=== PATIENT | female | born 1940 | race Caucasian/White ===

== ENCOUNTER 2018-11-09 12:26 | Inpatient (IN) | payer MEDICARE ==
[~2018-11-09] VITALS: Ht 175.3 cm; Wt 113.7 kg
[2018-11-09] MEDS ORDERED: OMEP20CA13 PO (12:50)
[2018-11-09] MEDS ORDERED: ONDN4T PO (12:50)
[2018-11-09] MEDS ORDERED: ATOR10TA66 PO (12:50)
[2018-11-09] MEDS ORDERED: OXC5T PO (12:50)
[2018-11-09] MEDS ORDERED: GBPN600T PO ×2 (12:50→14:50)
[2018-11-09] MEDS ORDERED: FENT1PAT59 TD (12:50)
[2018-11-09] MEDS ORDERED: LOSA100T57 PO (12:50)
[2018-11-09] MEDS ORDERED: OXYB5TAB9 PO (12:50)
[2018-11-09] MEDS ORDERED: CLON1TAB13 PO (12:50)
[2018-11-09] MEDS ORDERED: CHLO25TA22 PO (12:50)
[2018-11-09] MEDS ORDERED: HYDR-3781 PO (12:50)
--- NOTE | 2018-11-09 12:54 | NUR ---
UPDATED MED REC WITH THE LIST OF DISCHARGE MEDICATIONS FROM [facility] [place]. NOTE THE FOLLOWING CHANGES WERE MADE AT THAT DISCHARGE. STOP: PLAVIX 75MG DAILY THERE IS NO EXT MED HX TO VERIFY MEDICATIONS WITH AT THIS TIME BECAUSE THE PATIENT HAS NOT YET ARRIVED. I WILL UPDATE THE MED REC BACK TO THE LIST OF MEDICATIONS THE PATIENT WAS TAKING AT HOME AT A LATER DATE FOR PROPER DISCHARGE TO HOME ORDERS. Addendum: 11/09/18 at 1457 by DAVE PATRICK [facility] AFTER PATIENT ARRIVED AND EXT MED HX WAS AVAILABLE TO COMPARED WHAT [facility] HAS FILLED RECENTLY WITH THE MEDICATION LIST FROM [facility]. THERE WERE A FEW CHANGES MADE. CHANGED OXYBUTYNIN TO THE ER 5MG DAILY. CHANGED HYDROXYZINE TO 1-2 PRN ITCHING, STATES IT DEPENDS HOW SHE FEELS CHANGED ZOFRAN TO THE ODT GABAPENTIN WAS REPORTED DAILY HOWEVER IT IS PRESCRIBED TID. STATES SHE TAKES IT MORNING AND EVENING SCHEDULED AND THE NOON DOSE PRN. I UPDATED THE ABOVE CHANGES TO THE MED REC AT THIS TIME TO MATCH THE EXT MED HX. OMEPRAZOLE 40MG WAS LAST FILLED 06-11-18 #30 - THE SCRIPT IN SEPTEMBER WAS NEVER PICKED UP FROM THE PHARMACY, STATES SHE ONLY TAKES IT PRN. [facility] HAS 20MG DAILY, THEY MAY BE PURCHASING IT OTC NOW. LEFT IT 20MG DAILY PRN. Addendum: 11/09/18 at 1624 by DAVE PATRICK [facility] NO NEW MEDICATIONS WERE ORDERED AT DISCHARGED FROM [facility]. I ADDED THE PLAVIX BACK TO THE MED REC AT THIS TIME, IT WAS DISCONTINUED AT DISCHARGE.
--- NOTE | 2018-11-09 14:05 | NUR ---
Pt admitted to room 225-1, with an admitting diagnosis of S/P Lumbar Surgery on 11/09/18 from [facility] in [place] via w/c, accompanied by /staff. GALLO SU introduced to surroundings, call light, bed controls, phone, TV, temperature control, lights, meal times, smoking policy, visitor policy, side rail policy, bathrooms and showers. Patient Rights given to patient in the handbook. GALLO SU verbalizes understanding that [facility] is not responsible for the loss or damage to any personal effects or valuables that are kept in the patients posession during their hospitalization. The following Patient Care Plans were discussed with the pt: Discharge Planning, Self Care Deficit, Impaired Mobility, Potential for fall/injury. GALLO SU verbalizes understanding of Interdisciplinary Patient Education. Patient and/or family were informed about the Rapid Response Team and its purpose. Patient received Patient Rights Booklet, which includes Privacy Act Statement and Data Collection Information Summary.
[2018-11-09 14:50] VITALS: BP 125/88
[2018-11-09] MEDS ORDERED: OXYB5TAB PO (14:50)
[2018-11-09] MEDS ORDERED: ONDA4TAB11 PO (14:50)
--- NOTE | 2018-11-09 15:10 | Occupational Therapy Eval ---
OT Evaluation-General/PLF Medical Diagnosis Admission Date Nov 09, 2018 at 14:05 Medical Diagnosis: s/p lumbar fusion Onset Date: Nov 09, 2018 Therapy Diagnosis Therapy Diagnosis: impaired mobility and ADLs Precautions Precautions/Isolations: Fall Prevention, Standard Precautions Safety Interventions: None Comments back precautions, back brace when out of bed. Weight Bear Status Weight Bearing Restriction: Weight Bearing/Tolerated Referral Physician: Kelle Brito DO Referral Reason: Activity Tolerance, Self Care, Evaluation/Treatment, Strengthening/ROM Medical History Pertinent Medical History: Arthritis, GERD, HTN Additional Medical History IBS Current History L2-L4 DLIF Right Facetectomies and ext of PSIF Reviewed History: Yes Social History Home: Single Level Current Living Status: Spouse Entry Into Home: Stairs With Railing Steps Into Home: 2 ADL-Prior Level of Function Therapy Code Descriptions/Definitions Functional [place] Measure: 0=Not Assessed/NA 4=Minimal Assistance 1=Total Assistance 5=Supervision or Setup 2=Maximal Assistance 6=Modified [place] 3=Moderate Assistance 7=Complete [place] Therapy Quality Codes: 6 Independent with activity with or without an assistive device 5 Patient requires set up or clean up by helper. Patient completes activity by themselves 4 Supervision or touching assist (CGA). [place] provide cues , steadying assist 3 The helper provides less than half the effort to complete the activity 2 The helper provides more than half the effort to complete the activity 1 Dependent. The helper does all the effort to complete an activity 7 Patient refused to complete or attempt activity 9 The patient did not perform the activity before the current illness or injury 88 Not attempted due to Medical conditions or safety concerns Functional Abilities and Goals: Independent: Patient completed the activities by him/herself, with or without an assistive device, with no assistance from a helper. Needed Some Help: Patient needed partial assistance from another person to complete activities. Dependent: A helper completed the activities for the patient. Unknown: Not Applicable: ADL PLOF Comments Pt reported independence with ADLs prior to hospitalization, stating she did not drive and used a cane for mobility. Self Care: Independent Functional Cognition: Independent DME/Equipment: Bath Chair, Shower Occupation: retired Drive Self: No OT Current Status Subjective Pt sitting in w/c at start of eval, stated her pain was 10/10 in her knees. Pt visibly distressed and crying due to pain, nursing notified and brought pain pill. Pt agreed to OT eval and co-treatment with PT secondary to pain and the need for skilled services of both OT/PT for transfers and mobility. Mental Status/Objective Patient Orientation: Person, Place, Time, Situation Attachments: Drains, Other-See Comments (back brace) Current Glasses/Contacts: No Hearing Aids: No Dentures/Partials: No Upper Extremity ROM LUE WFL RUE flexion to approx. 70 degrees Upper Extremity Coordination intact finger to nose test and BUE opposition of thumb to each finger. Upper Extremity Sensation intact light touch sensation BUE Upper Extremity Strength 3/5 BUE Edema: BLE ADL-Treatment Eating (FIM): 6 (increased time secondary to 10/10 pain rating ) Eating (QC): 6 Grooming (FIM): 5 (set up for washing face and hands. increased time secondary to pain.) Oral Hygiene (QC): 5 Bathing (FIM): 2 (Pt required assistance washing LUE secondary to pain, but she was able to wash R arm/chesst/abdomen. Pt unable to wash lower body secondary to pain.) Bathing Location: R Arm, Chest, Abdomen Shower/Bathe Self (QC): 2 Upper Body Dressing (FIM): 3 (Doffed 5/7: required assistance with bra clasp and getting shirt up back.donned 3/4, toe puller shirt: required assistance managing shirt down back. ) Upper Body Dressing (QC): 3 Lower Body Dressing (FIM): 1 Lower Body Dressing (QC): 1 On/Off Footwear (QC): 1 Toileting (FIM): 1 Toileting Hygiene (QC): 1 (secondary to pain) Other Treatments OT co-tx with PT secondary to increased pain, rated 10/10 by pt and pt crying at start of session. OT/PT provided skilled therapy that a procurement technician cannot perform, OT focused on ADLs and UE while PT focused on mobility and LE. Post OT session, pt upright in w/c, transitioned to other OT. Education OT Patient Education: Correct positioning, Energy conservation, Modified ADL techniques, Progress toward Goal/Update tx plan, Purpose of tx/functional activities Teaching Recipient: Patient, Significant Other Teaching Methods: Demonstration, Discussion Response to Teaching: Verbalize Understanding, Return Demonstration OT Short Term Goals Short Term Goals Time Frame: Nov 23, 2018 Grooming(FIM): 5 Bathing(FIM): 5 Bathing Location: L Arm, R Arm, L Upper Leg, R Upper Leg, L Lower Leg (including foot), R Lower Leg (including foot), Chest, Abdomen, Buttocks, Perineal Area Upper Body Dressing(FIM): 5 Lower Body Dressing(FIM): 5 Toileting(FIM): 5 Transfers (B,C,W/C) (FIM): 5 Toilet/Commode Transfer(FIM): 5 Shower Transfer(FIM): 5 1=Demonstrate adherence to instructed precautions during ADL tasks. 2=Patient will verbalize/demonstrate understanding of assistive devices/modifications for ADL. 3=Patient will improve strength/tolerance for activity to enable patient to perform ADL's. OT Segment Block Layer Goals Senior Care Goals Time Frame: Dec 07, 2018 Eating (FIM): 7 Eating (QC): 6 Groomin Oral Hygiene (QC): 6 Bathing(FIM): 6 Bathing Location: L Arm, R Arm, L Upper Leg, R Upper Leg, L Lower Leg (including foot), R Lower Leg (including foot), Chest, Abdomen, Buttocks, Perineal Area Shower/Bathe Self (QC): 6 Upper Body Dressing(FIM): 6 Upper Body Dressing (QC): 6 Lower Body Dressing(FIM): 6 Lower Body Dressing (QC): 6 On/Off Footwear (QC): 6 Toileting(FIM): 6 Toileting Hygiene (QC): 6 Transfers (B,C,W/C) (FIM): 6 Toilet/Commode Transfer(FIM): 6 Toilet/Commode Transfer (QC): 6 Shower Transfer(FIM): 6 1=Demonstrate adherence to instructed precautions during ADL tasks. 2=Patient will verbalize/demonstrate understanding of assistive devices/modifications for ADL. 3=Patient will improve strength/tolerance for activity to enable patient to perform ADL's. OT Education/Plan Problem List/Assessment Assessment: Decreased Activ Tolerance, Decreased UE Strength, Edema, Impaired Bed Mobility, Impaired Funct Balance, Impaired I ADL's, Impaired Self-Care Skills, Restricted Funct UE ROM Discharge Recommendations Plan/Recommendations: Continue POC Barriers to Progress pain Treatment Plan/Plan of Care Treatment,Training & Education: Yes Patient would benefit from OT for education, treatment and training to promote independence in ADL's, mobility, safety and/or upper extremity function for ADL's. Plan of Care: ADL Retraining, Caregiver Training, Functional Mobility, Group Exercise/Act as Ind, UE Funct Exercise/Act Frequency: At least 5 of 7 days/Wk (IRF) Estimated Hrs Per Day: 1 hour per day (60-90 min) Agreement: Yes Rehab Potential: Fair Time/GCodes Start Time: 14:10 Stop Time: 15:00 Billed Treatment Time EVM, 10 min Co-treat with PT 40 mins ADL 3 unit DASH GAMBOA OT Nov 09, 2018 15:10
--- NOTE | 2018-11-09 15:36 | Physical Therapy Evaluation ---
PT Evaluation-General Medical Diagnosis Admission Date Nov 09, 2018 at 14:05 Medical Diagnosis: lumbar fusion Onset Date: Nov 07, 2018 Therapy Diagnosis Therapy Diagnosis: impaired mobility, strength, endurance Referral Physician: Kelle Brito DO Reason for Referral: Evaluation/Treatment Medical History Additional Medical History Past Medical History Surgeries: Abdominal, Appendectomy, Breast, Hysterectomy, Orthopedic Cardiac: Hypertension Neurological: Neuropathy OAB Gastrointestinal: Gastroesophageal Reflux, Irritable Bowel Musculoskeletal: Arthritis, Fibromyalgia, Rheumatoid Arthritis Psychosocial: Anxiety, Depression Social History Home: Single Level Current Living Status: Spouse Entry Into Home: Stairs With Railing PT Steps Into Home: 2 Prior/Core FIM Prior Level of Function Therapy Code Descriptions/Definitions Functional [place] Measure: 0=Not Assessed/NA 4=Minimal Assistance 1=Total Assistance 5=Supervision or Setup 2=Maximal Assistance 6=Modified [place] 3=Moderate Assistance 7=Complete [place] Therapy Quality Codes: 6 Independent with activity with or without an assistive device 5 Patient requires set up or clean up by helper. Patient completes activity by themselves 4 Supervision or touching assist (CGA). [place] provide cues , steadying assist 3 The helper provides less than half the effort to complete the activity 2 The helper provides more than half the effort to complete the activity 1 Dependent. The helper does all the effort to complete an activity 7 Patient refused to complete or attempt activity 9 The patient did not perform the activity before the current illness or injury 88 Not attempted due to Medical conditions or safety concerns Functional Abilities and Goals: Independent: Patient completed the activities by him/herself, with or without an assistive device, with no assistance from a helper. Needed Some Help: Patient needed partial assistance from another person to complete activities. Dependent: A helper completed the activities for the patient. Unknown: Not Applicable: Bed Mobility: 6 Transfers (B,C,W/C) (FIM): 6 Gait: 6 Stairs: 2 Patient was using both a single point cane and rolling walker previously. PT Evaluation-Current Subjective Patient in car pre tx, agrees to PT, has 10/10 pain. Nurse notified and she got pain meds not long after. Patient is crying in pain at this time. Will be co- treating with OT for most of the time due to poor patient mobility, endurance, pain. Pt/Family Goals to be independent at home Objective Patient Orientation: Person, Place, Situation Attachments: Drains back brace ROM/Strength ROM Lower Extremities NT due to pain Strenght Lower Extremities NT due to pain Sensory Vision: Functional Hearing: Functional Sensation Right Lower Extremit: Impaired Sensation Left Lower Extremity: Impaired Sensation Lower Extremities decreased light touch sensation in feet bilaterally Transfers Therapy Code Descriptions/Definitions Functional [place] Measure: 0=Not Assessed/NA 4=Minimal Assistance 1=Total Assistance 5=Supervision or Setup 2=Maximal Assistance 6=Modified [place] 3=Moderate Assistance 7=Complete [place] Therapy Quality Codes: 6 Independent with activity with or without an assistive device 5 Patient requires set up or clean up by helper. Patient completes activity by themselves 4 Supervision or touching assist (CGA). [place] provide cues , steadying assist 3 The helper provides less than half the effort to complete the activity 2 The helper provides more than half the effort to complete the activity 1 Dependent. The helper does all the effort to complete an activity 7 Patient refused to complete or attempt activity 9 The patient did not perform the activity before the current illness or injury 88 Not attempted due to Medical conditions or safety concerns Transfers (B, C, W/C) (FIM): 2 Scootin Rollin Roll Left to Right (QC): 2 Supine to/from Sit: 2 Sit to/from Stand: 4 bed t/f WC(FIM only if WC use): 3 Sit to Lying (QC): 2 Lying to Sitting/Side of Bed(Q: 2 Sit to Stand (QC): 3 Chair/Fah-ln-Ptewb Xfer(QC): 3 Car Transfer (QC): 2 Patient performs bed mobility with max assist, supine <-> sit with max assist, sit <-> stand min assist, transfers min assist, car transfer mod assist. Patient needs extra time due to pain, cues for hand placement and safety. Gait Does the Patient Walk?: Yes Mode of Locomotion: Walk Anticipated Mode of Locomotion: Walk Gait (FIM): 1 Distance: 8'x3 Gait Level of Assist: 4 Gait Persons Needed: 1 Gait Assistive Device: Parallel Bars Comments/Gait Description Patient ambulates 8' in the parallel bars with min assist. Gait is antalgic, slow, short steps. Wheelchair Training Does the Pt Use a Wheelchair?: Yes Wheelchair (FIM): 1 Type of Wheelchair: Manual Stairs If not tested on admit;explain Patient did not perform stairs due to decreased ambulation and intense pain. Balance Sitting Static: Fair Sitting Dynamic: Fair Standing Static: Fair Standing Dynamic: Poor Treatment Bathing with OT, dressing. Assessment/Needs Patient has impaired mobility, strength, endurance, high pain. She can ambulate but all movement is intensely painful. Rehab Potential: Fair PT Short Term Goals Short Term Goals Time Frame: Nov 16, 2018 Transfers (B,C,W/C) (FIM): 3 Gait (FIM): 2 Gait Distance Comment: 50' Gait Level of Assist: 4 Gait Assistive Device: FWW PT Prison Goals Mud Jack Operator Goals PT Prison Goals Time Frame: Nov 30, 2018 Transfers (B,C,W/C) (FIM): 4 Sit to Lying (QC): 3 Lying-Sitting on Side/Bed(QC): 3 Sit to Stand (QC): 4 Rollin Roll Left to Right (QC): 3 Chair/Gon-gg-Qgjzh Xfer(QC): 4 Car Transfer (QC): 3 Gait (FIM): 4 Distance: 150' Walk 10 feet (QC): 4 Walk 10ft-Uneven Surface(QC): 4 Walk 50ft with 2 Turns (QC): 4 Walk 150 ft (QC): 4 Gait Level of Assist: 4 Gait Assistive Device: FWW Stairs (FIM): 2 # of Steps: 4 1 Step (curb) (QC): 4 4 Steps (QC): 4 Stairs Level Of Assist: 4 PT Plan Problem List Problem List: Activity Tolerance, Functional Strength, Safety, Balance, Gait, Transfer, Bed Mobility, ROM Treatment/Plan Treatment Plan: Continue Plan of Care Treatment Plan: Bed Mobility, Concurrent Therapy, Education, Functional Activity Desiree, Functional Strength, Group Therapy, Gait, Safety, Therapeutic Exercise, Transfers Treatment Duration: Nov 30, 2018 Frequency: At least 5 of 7 days/Wk (IRF) Estimated Hrs Per Day: 1.5 hours per day Patient and/or Family Agrees t: Yes Safety Risks/Education Patient Education: Gait Training, Transfer Techniques, Correct Positioning, Reviewed Don/Doff Brace, Safety Issues Teaching Recipient: Patient Teaching Methods: Demonstration, Discussion Response to Teaching: Reinforcement Needed Discharge Recommendations Plan Patient will perform bed mobility and transfer training, balance and endurance training, functional strengthening, stair training, gait training, and education, to improve functional mobility and independence at home. Therapy D/C Recommendations: Home w/ Family Support Time/GCodes Time In: 1400 Time Out: 1540 Total Billed Treatment Time: 90 Total Billed Treatment 1 visit EVM 10' GT 20' FA 60' PT eval from [id number], OT eval from [id number], co-treat from [id number]. PT performed bed mobility and transfers, WC mobility, brace training, ambulation, OT worked on bathing, dressing UE positioning, and assist with transfers and bed mobility. ANTWAN VALENCIA PT Nov 09, 2018 15:36
[2018-11-09] MEDS ORDERED: GABAPENTIN 600 MG (NEURONTIN) TAB PO PRN (15:45)
[2018-11-09] MEDS ORDERED: HYDROXYZINE PAMOATE 25 MG PO PRN (15:45)
[2018-11-09] MEDS ORDERED: OMEPRAZOLE 20 MG (PriLOSEC) CAP NON-FORMULARY PO PRN (15:45)
[2018-11-09] MEDS ORDERED: fentaNYL PATCH 75 MCG (DURAGESIC) TD SCH (15:45)
--- NOTE | 2018-11-09 15:46 | PM&R H&P / Post Admit Assess ---
History of Present Illness HPI/Chief Complaint Chief complaint: Spinal fusion with slow recovery and debility History of present illness: This is a 77-year-old white female patient of Dr. Kassi Fergusno in [facility] who presents to inpatient rehab after undergoing an uncomplicated spinal fusion surgery by Dr. Kim on 11/07/2018 but had just such slow recovery she was required to go to inpatient rehab for intensive and structured therapy program prior to returning home with her . I have reviewed and restarted all of her home medications except for chlorthalidone due to high risk for hyponatremia and postop state. We did replace fentanyl patch since it had fallen off and it was taped back to the skin yesterday. She has not had a bowel movement so we will maintain bowel regimen. Overall she is been slow to walk and regain any ADL independence. Check meds and labs. Source: patient, family, RN/MD, old records Exam Limitations: no limitations Date Seen 11/09/18 Time Seen by a Provider: 15:00 Attending Physician Kelle Brito DO PCP Referring Physician Date of Admission Nov 09, 2018 at 14:05 Home Medications & Allergies Home Medications Reviewed patient Home Medication Reconciliation performed by pharmacy medication reconciliations carpet technician and/or nursing. Patients Allergies have been reviewed. Allergies Allergies Coded Allergies Penicillins (Verified Allergy, Unknown, 11/09/18) adhesive tape (Verified Allergy, Unknown, 11/09/18) butorphanol (Verified Allergy, Unknown, 11/09/18) Past Mqhnrli-Nyjkvt-Qmiuaz Hx Past Med/Social Hx: Reviewed Nursing Past Med/Soc Hx, Reviewed and Corrections made Patient Social History Marrital Status: Employed/Student: retired Smoking Status: Never a Smoker Past Medical History Surgeries: Abdominal, Appendectomy, Breast, Hysterectomy, Orthopedic Cardiac: Hypertension Neurological: Neuropathy OAB Gastrointestinal: Gastroesophageal Reflux, Irritable Bowel Musculoskeletal: Arthritis, Fibromyalgia, Rheumatoid Arthritis Psychosocial: Anxiety, Depression Review of Systems Constitutional: see HPI EENTM: no symptoms reported Respiratory: no symptoms reported Cardiovascular: no symptoms reported Gastrointestinal: constipation Genitourinary: no symptoms reported Musculoskeletal: back pain Skin: no symptoms reported Psychiatric/Neurological: Anxiety, Depressed, Emotional Problems All Other Systems Reviewed Negative Unless Noted: Yes Physical Exam Exam Vital Signs Vital Signs Date Time Temp Pulse Resp B/P (MAP) Pulse Ox O2 Delivery O2 Flow Rate FiO2 11/09/18 17:32 95 Room Air 11/09/18 14:50 98.0 85 18 125/88 (100) Capillary Refill : General Appearance: No Apparent Distress, WD/WN, Chronically ill, Obese HEENT: PERRL/EOMI, Normal ENT Inspection, Pharynx Normal, Moist Mucous Membranes Neck: Full Range of Motion, Normal Inspection, Non Tender, Supple Respiratory: Chest Non Tender, Lungs Clear, Normal Breath Sounds, No Accessory Muscle Use, No Respiratory Distress Cardiovascular: Regular Rate, Rhythm, No Edema, No Gallop, No JVD, No Murmur Gastrointestinal: Normal Bowel Sounds, No Organomegaly, No Pulsatile Mass, Non Tender, Soft Back: Decreased Range of Motion, Muscle Spasm, Vertebral Tenderness Extremity: Normal Capillary Refill, Normal Inspection, Normal Range of Motion, Non Tender, No Calf Tenderness, No Pedal Edema Neurologic/Psychiatric: Alert, Oriented x3, No Motor/Sensory Deficits, Normal Mood/Affect, formal waiter/waitress II-XII Norm as Tested, Motor Weakness (generalized lower extremities) Skin: Normal Color, Warm/Dry Lymphatic: No Adenopathy Results Results/Procedures Labs Patient resulted labs reviewed. Assessment/Plan Assessment and Plan Assess & Plan/Chief Complaint Assessment: Status post spinal fusion uncomplicated but slow recovery with debility Hypertension Rheumatoid arthritis GERD Irritable bowel syndrome Hyperlipidemia Overactive bladder Antiplatelet agent chronic Emotional problems/difficult coping Plan: Restart Plavix on Monday Pain control with fentanyl patch Check labs in the morning Bowel regimen Inpatient rehab therapy protocol (1) Hypertension (2) GERD (gastroesophageal reflux disease) (3) Rheumatoid arthritis (4) Anxiety (5) Acute depression (6) Debility (7) Overactive bladder (8) Chronic pain (9) Hyperlipemia (10) S/P spinal fusion Post Admission Physician Asses Date seen by provider: Nov 09, 2018 Time seen by provider: 15:00 Admisison Dx: (1) S/P spinal fusion The preadmission screen agrees with the post admission assessment that the patient is a good candidate for inpatient rehabilitation. The patient will have a comprehensive program of inpatient rehabilitation with a goal of maximizing level of functional independence prior to discharge home with family. The patient will have PT/OT ninety minutes per day, each discipline, five days a week for gait, strengthening, conditioning, balance, ADLs, any patient/family/caregiver training as necessary. Speech therapy to do cognitive assessment and treat as indicated. Rehabilitation nursing to assist with bowel, bladder, skin, wound care, medication administration, pain management. Clinic Md Associate to assist with discharge planning, community reentry. SCD's for DVT prophylaxis. She appears to be well motivated to participate in three hours of therapy a day. She should be able to tolerate three hours of therapy a day from a medical standpoint. She should benefit from the three hours of therapy a day. She has a reasonable discharge plan, reasonable discharge rehabilitation goals and a supportive family. She has various comorbidities that need to be closely monitored with medications and treatments adjusted on a daily basis as needed. These include: see list Barriers to discharge for this patient who had been independent prior to this are for her to be modified independent to supervision for ADLs and mobility skills prior to discharge home with family, so as to lessen the burden of the caregivers. Risks for this patient include: 1. Fall 2. Fracture 3. DVT 4. Pulmonary embolism 5. Wound infection 6. Skin breakdown 7. Contractures 8. Poorly controlled pain 9. Urinary retention 10. UTI 11. Respiratory infection 12. Aspiration Estimated Length of Stay: 10 days Prognosis: Rehab prognosis appears good for goal of discharge home with family modified independent to supervision for ADLs and mobility skills. KELLE BRITO DO Nov 09, 2018 15:46
--- NOTE | 2018-11-09 15:51 | Occupational Ther Daily Note ---
OT Current Status-Daily Note Subjective pt sitting in w/c upon OT arrival. pt reports 10/10 back pain. pt agreed to OT/ PT TX session. Mental Status/Objective Therapy Code Descriptions/Definitions Functional [place] Measure: 0=Not Assessed/NA 4=Minimal Assistance 1=Total Assistance 5=Supervision or Setup 2=Maximal Assistance 6=Modified [place] 3=Moderate Assistance 7=Complete [place] Attachments: Drains, Other-See Comments (back brace ) ADL-Treatment Therapy Code Descriptions/Definitions Functional [place] Measure: 0=Not Assessed/NA 4=Minimal Assistance 1=Total Assistance 5=Supervision or Setup 2=Maximal Assistance 6=Modified [place] 3=Moderate Assistance 7=Complete [place] Therapy Quality Codes: 6 Independent with activity with or without an assistive device 5 Patient requires set up or clean up by helper. Patient completes activity by themselves 4 Supervision or touching assist (CGA). [place] provide cues , steadying assist 3 The helper provides less than half the effort to complete the activity 2 The helper provides more than half the effort to complete the activity 1 Dependent. The helper does all the effort to complete an activity 7 Patient refused to complete or attempt activity 9 The patient did not perform the activity before the current illness or injury 88 Not attempted due to Medical conditions or safety concerns Lower Body Dressing (FIM): 1 (pt education on figure four positioning to obey by back precaution. pt attempt but unable to perform. more education will be required. ) Lower Body Dressing (QC): 1 Transfers (B, C, W/C) (FIM): 4 (use of RW ) Toilet/Commode Transfer (FIM): 4 (use of RW ) Toilet Transfer (QC): 4 (use of RW ) Shower Transfer(FIM): 88 (NT secodnary to safety/ increase pain with back. pt refused ) Other Treatment pt transported to TX gym with PT / OT. OT/ PT co treatment secondary to complexity of pt deficits requiring skilled of both disciplines. OT focus on UE positioning, ADL tasks, and maintaining back precaution during tasks while PT focused on LE positioning, gross transfers and ambulation. pt demo ability to perform 3 sit to stands with MIN A and functional mobility 8 ft X3. pt stated decrease pain while standing compared to sitting. pt trasposrted back to room and perform stand piviot trnasfers with RW and MIN A. pt required MAX A to perform sit to supine. pt eduction on log roll. post TX session pt laying in bed, call light, tray, phone in reach, and present in room. all needs met. Education OT Patient Education: Correct positioning, Energy conservation, Modified ADL techniques, Progress toward Goal/Update tx plan, Purpose of tx/functional activities, Transfer techniques Teaching Recipient: Patient Teaching Methods: Demonstration, Discussion Response to Teaching: Verbalize Understanding, Return Demonstration OT Short Term Goals Short Term Goals Time Frame: Nov 23, 2018 Grooming(FIM): 5 Bathing(FIM): 5 Bathing Location: L Arm, R Arm, L Upper Leg, R Upper Leg, L Lower Leg (including foot), R Lower Leg (including foot), Chest, Abdomen, Buttocks, Perineal Area Upper Body Dressing(FIM): 5 Lower Body Dressing(FIM): 5 Toileting(FIM): 5 Transfers (B,C,W/C) (FIM): 5 Toilet/Commode Transfer(FIM): 5 Shower Transfer(FIM): 5 1=Demonstrate adherence to instructed precautions during ADL tasks. 2=Patient will verbalize/demonstrate understanding of assistive devices/modifications for ADL. 3=Patient will improve strength/tolerance for activity to enable patient to perform ADL's. OT Hot Frame Tender Goals Hot Frame Tender Goals Time Frame: Dec 07, 2018 Eating (FIM): 7 Eating (QC): 6 Groomin Oral Hygiene (QC): 6 Bathing(FIM): 6 Bathing Location: L Arm, R Arm, L Upper Leg, R Upper Leg, L Lower Leg (including foot), R Lower Leg (including foot), Chest, Abdomen, Buttocks, Perineal Area Shower/Bathe Self (QC): 6 Upper Body Dressing(FIM): 6 Upper Body Dressing (QC): 6 Lower Body Dressing(FIM): 6 Lower Body Dressing (QC): 6 On/Off Footwear (QC): 6 Toileting(FIM): 6 Toileting Hygiene (QC): 6 Transfers (B,C,W/C) (FIM): 6 Toilet/Commode Transfer(FIM): 6 Toilet/Commode Transfer (QC): 6 Shower Transfer(FIM): 6 1=Demonstrate adherence to instructed precautions during ADL tasks. 2=Patient will verbalize/demonstrate understanding of assistive dev ices/modifications for ADL. 3=Patient will improve strength/tolerance for activity to enable patient to perform ADL's. OT Education/Plan Problem List/Assessment Assessment: Decreased Activ Tolerance, Decreased Safety Aware, Decreased UE Strength, Impaired Bed Mobility, Impaired Funct Balance, Impaired I ADL's, Impaired Self-Care Skills Discharge Recommendations Plan/Recommendations: Continue POC Treatment Plan/Plan of Care Treatment,Training & Education: Yes Patient would benefit from OT for education, treatment and training to promote independence in ADL's, mobility, safety and/or upper extremity function for ADL's. Plan of Care: ADL Retraining, Caregiver Training, Functional Mobility, Group Exercise/Act as Ind, UE Funct Exercise/Act Frequency: At least 5 of 7 days/Wk (IRF) Estimated Hrs Per Day: 1 hour per day (60-90 min) Agreement: Yes Rehab Potential: Fair Time/GCodes Start Time: 15:00 Stop Time: 15:40 Billed Treatment Time ADL 15 minutes, 1 unit FA 25 minutes, 2 units SHA LOW OT Nov 09, 2018 15:51
--- NOTE | 2018-11-09 16:17 | ST Cognitive Linguistic Eval ---
Speech Evaluation-General Medical Diagnosis s/p lumbar fusion Onset Date: Nov 09, 2018 Therapy Diagnosis Therapy Diagnosis: Cognitive-communication Precautions Precautions: Fall Precautions/Isolations: Fall Prevention, Standard Precautions Referral Referring Physician: Dr. Brito Reason for Referral: Evaluation/Treatment Medical History Pertinent Medical History: Arthritis, GERD, HTN Arthritis, GERD, HTN Current History s/p lumbar fusion Reviewed History: Yes Social History Home: Single Level Current Living Status: Spouse Speech PLF-Current Status Prior Level of Function Patient lived at home with her where she was independent for most of her daily needs. Subjective The patient was pleasant with the cognitive evaluation, although she was in 10 /10 pain and had just received her pain meds. Language Eval: Auditory Comprehends Simple Yes/No Ques: Functional Indent/Objects [place]: Functional Ident/Pics in [place]: Functional Follows 1-Step Commands: Functional Follows Complex Directions: Functional Follows General Conversations: Functional Language Eval: Verbal Language Completes Spontaneous Greeting: Functional Produces Auto, Serial Info: Functional Imitates Simple Words/Phrases: Functional Word Finding: Functional Requests Basic Needs: Functional States Basic Personal Info: Functional Expresses Complex Ideas: Mild Cognitive Patient Orientation Patient oriented to all concepts Objective Cognitive Domain Attention: WNL Memory: WNL Problem Solving: Mild Executive Functions: Mild Visuospatial Skills: WNL Composite Severity Rating: WNL Clock Drawing Severity Rating: WNL Score: 27/30 Range: Normal Objective Formal/Standardized Tests [facility] Status ([facility]) Results Patient scored in normal range at 27/30 Oral Motor/Speech Production Within Functional Limits Impression The patient is a pleasant 77 year old female who was admitted to the ARU s/p lumbar fusion. She was evaluated at bedside with the [facility]. Her score is within the normal range of function. The patient does not require skilled ST at this time. Communication/Social Cognition Comprehension: 7 Expression: 7 Social Interaction: 7 Problem Solvin Memory: 6 Speech Patient Assess Expression of Ideas/Wants: Expression (4) Understanding Verbal Content: Understands (4) Brief Interview-Mental Status: Yes Repetition of Three Words: Three (3) Temporal Orientation: Year: Correct (3) Temporal Orientation: Month: Accurate within 5 days(2) Temporal Orientation: Day: Correct (1) Recall : Wear to say "Sock": Yes, no cue required (2) Recall : Color: Yes, no cue required (2) Recall : Bed: Yes,after cueing (1) Add-Enter 99 if pt cannot comp: 99 Memory/Recall Ability: Current season, That he or she is in a hsp/hsp unit Speech-Plan Patient/Family Goals Patient/Family Goals: The patient plans on returning home with her post rehab. Treatment Plan Speech Therapy Treatment Plan: Discontinue ST The patient does not require skilled ST at this time. Treatment Duration: Nov 09, 2018 Frequency: 1 time per week Estimated Hrs Per Day: .25 hour per day Rehab Potential: Fair Barriers to Learning: Patient is in a lot of pain Pt/Family Agrees to Plan: Yes Safety Risks/Education Teaching Recipient: Patient, Significant Other Teaching Methods: Discussion Response to Teaching: Verbalize Understanding Education Topics Provided: Safety within her room Time Speech Therapy Time In: 15:50 Speech Therapy Time Out: 16:05 Total Billed Time: 15 Billed Treatment Time 1, SPSNDTANA Maya Nov 09, 2018 16:17
[2018-11-09] MEDS ORDERED: CLOP75TA28 PO (16:24)
[2018-11-09] MEDS ORDERED: PANTOPRAZOLE 20 MG TABLET (PROTONIX) PO PRN (16:30)
--- NOTE | 2018-11-09 16:44 | NUR ---
Have called Pharmacy x 2 that we are unable to obtain Fentanyl patch from [facility]. They state that they will bring it up & place in [place] [facility]. Addendum: 11/09/18 at 1647 by DEANGELO AGUILA RN Received in report that the current Fentanyl patch fell off yesterday, & that they taped it back on. Will be removing this patch, which is on upper back & taped, as pt arrived with, & be placing the new one.
[2018-11-09] MEDS: [UNRECOGNIZED DRUG - REMARK] TP SCH (16:57)
[2018-11-09] MEDS: fentaNYL PATCH 75 MCG (DURAGESIC) TD SCH (16:57)
[2018-11-09] MEDS: ONDANSETRON 4 MG (ZOFRAN) ORAL DISSOLVE TAB PO PRN (16:59)
[2018-11-09] MEDS: GABAPENTIN 600 MG (NEURONTIN) TAB PO SCH (20:59)
[2018-11-09] MEDS: clonazePAM 1 MG (KlonoPIN) TAB PO PRN (20:59)
[2018-11-09] MEDS ORDERED: NON-FORMULARY MEDICATION 1 EA EA (Clonazepam 1 MG) PO SCH (21:00)
[2018-11-09] MEDS ORDERED: ONDANSETRON 4 MG (ZOFRAN) ORAL DISSOLVE TAB PO PRN (22:00)
[2018-11-09] MEDS ORDERED: diphenhydrAMINE 25 MG TAB (BENADRYL) PO PRN (22:00)
[2018-11-10 05:46] VITALS: BP 125/75
[2018-11-10 06:45] LABS: BASOPHILS % (AUTO) 0 % (0-10); EOSINOPHILS # (AUTO) 0.1 10^3/uL (0.0-0.3); EOSINOPHILS % (AUTO) 1 % (0-10); HEMATOCRIT 33 % (35-52); HEMOGLOBIN 10.3 G/DL (11.5-16.0); LYMPHOCYTES # (AUTO) 1.7 X 10^3 (1.0-4.0); LYMPHOCYTES % (AUTO) 24 % (12-44); MEAN CORPUSCULAR HEMOGLOBIN 27 PG (25-34); MEAN CORPUSCULAR HGB CONC 31 G/DL (32-36); MEAN CORPUSCULAR VOLUME 86 FL (80-99); MEAN PLATELET VOLUME 10.7 FL (7.4-10.4); MONOCYTES # (AUTO) 0.9 X 10^3 (0.0-1.0); MONOCYTES % (AUTO) 13 % (0-12); NEUTROPHILS # (AUTO) 4.3 X 10^3 (1.8-7.8); NEUTROPHILS % (AUTO) 62 % (42-75); PLATELET COUNT 279 10^3/uL (130-400); RED CELL DISTRIBUTION WIDTH 14.8 % (10.0-14.5)
[2018-11-10 06:58] LABS: ALBUMIN 3.3 GM/DL (3.2-4.5); BILIRUBIN,TOTAL 0.7 MG/DL (0.1-1.0); CALCIUM 9.4 MG/DL (8.5-10.1); CREATININE SERUM 1.02 MG/DL (0.60-1.30); TOTAL PROTEIN 5.8 GM/DL (6.4-8.2)
[2018-11-10] MEDS: LOSARTAN 100 MG (COZAAR) TABLET PO SCH (08:18)
[2018-11-10] MEDS: ATORVASTATIN 10 MG (LIPITOR) TABLET PO SCH (08:19)
[2018-11-10] MEDS: GABAPENTIN 600 MG (NEURONTIN) TAB PO SCH ×2 (08:20→20:39)
[2018-11-10] MEDS: OXYBUTYNIN (DITROPAN) 5 MG TAB PO SCH ×2 (08:20→20:39)
[2018-11-10] MEDS: POLYETHYLENE GLYCOL 17 GM (MIRALAX) PACK PO SCH ×2 (08:22→20:39)
[2018-11-10] MEDS: SENNA W/DOCUSATE (SENOKOT S) TABLET PO SCH ×2 (08:30→20:39)
[2018-11-10] MEDS: BISACODYL 10 MG SUPP (DULCOLAX) PR SCH ×2 (08:31→20:41)
[2018-11-10] MEDS: DOCUSATE SODIUM 100 MG (COLACE) CAP PO SCH ×2 (08:31→20:39)
[2018-11-10] MEDS ORDERED: OXYBUTYNIN ER 5 MG (DITROPAN XL) TAB NON-FORMULARY PO SCH (09:00)
--- NOTE | 2018-11-10 11:44 | PM&R Progress Note ---
Subjective HPI/CC On Admission Date Seen by Provider: Nov 10, 2018 Time Seen by Provider: 11:00 Chief complaint: Spinal fusion with slow recovery and debility History of present illness: This is a 77-year-old white female patient of Dr. Kassi Ferguson in [facility] who presents to inpatient rehab after undergoing an uncomplicated spinal fusion surgery by Dr. Kim on 11/07/2018 but had just such slow recovery she was required to go to inpatient rehab for intensive and structured therapy program prior to returning home with her . I have reviewed and restarted all of her home medications except for chlorthalidone due to high risk for hyponatremia and postop state. We did replace fentanyl patch since it had fallen off and it was taped back to the skin yesterday. She has not had a bowel movement so we will maintain bowel regimen. Overall she is been slow to walk and regain any ADL independence. Check meds and labs. Subjective/Events-last exam Patient doing much better Talks about her pain a lot of which she has acute on chronic pain after surgery Checked meds and labs very pleased with her progress. No BM yet so will order more meds Conferred with RN Reviewed therapy notes Working with PT well Review of Systems General: Fatigue Gastrointestinal: Constipation Musculoskeletal: back pain Objective Exam Vital Signs Vital Signs Date Time Temp Pulse Resp B/P (MAP) Pulse Ox O2 Delivery O2 Flow Rate FiO2 11/10/18 09:00 Room Air 11/10/18 05:46 98.6 73 22 125/75 (92) 91 Capillary Refill : General Appearance: No Apparent Distress, WD/WN, Chronically ill, Obese HEENT: PERRL/EOMI, Normal ENT Inspection, Pharynx Normal, Moist Mucous Membranes Neck: Full Range of Motion, Normal Inspection, Non Tender, Supple Respiratory: Chest Non Tender, Lungs Clear, Normal Breath Sounds, No Accessory Muscle Use, No Respiratory Distress Cardiovascular: Regular Rate, Rhythm, No Edema, No Gallop, No JVD, No Murmur Gastrointestinal: Normal Bowel Sounds, No Organomegaly, No Pulsatile Mass, Non Tender, Soft Back: Decreased Range of Motion, Muscle Spasm, Vertebral Tenderness Extremity: Normal Capillary Refill, Normal Inspection, Normal Range of Motion, Non Tender, No Calf Tenderness, No Pedal Edema Neurologic/Psychiatric: Alert, Oriented x3, No Motor/Sensory Deficits, Normal Mood/Affect, statistics tutor II-XII Norm as Tested, Motor Weakness (generalized lower extremities) Skin: Normal Color, Warm/Dry Lymphatic: No Adenopathy Results/Procedures Lab Laboratory Tests 11/10/18 06:17 Patient resulted labs reviewed. FIM Transfers Therapy Code Descriptions/Definitions Functional [place] Measure: 0=Not Assessed/NA 4=Minimal Assistance 1=Total Assistance 5=Supervision or Setup 2=Maximal Assistance 6=Modified [place] 3=Moderate Assistance 7=Complete [place] Therapy Quality Codes: 6 Independent with activity with or without an assistive device 5 Patient requires set up or clean up by helper. Patient completes activity by themselves 4 Supervision or touching assist (CGA). [place] provide cues , steadying assist 3 The helper provides less than half the effort to complete the activity 2 The helper provides more than half the effort to complete the activity 1 Dependent. The helper does all the effort to complete an activity 7 Patient refused to complete or attempt activity 9 The patient did not perform the activity before the current illness or injury 88 Not attempted due to Medical conditions or safety concerns Transfers (B, C, W/C) (FIM): 4 (use of RW ) Scootin Rollin Roll Left to Right (QC): 2 Supine to/from Sit: 2 Sit to/from Stand: 4 Sit to Lying (QC): 2 Sit to Stand (QC): 3 Chair/Vvi-cm-Devul Xfer(QC): 3 Bed to/from Chair: 3 Car Transfer (QC): 2 Gait Training Does the Patient Walk?: Yes Gait (FIM): 1 Gait Level of Assist: 4 Gait Persons Needed: 1 Gait Assistive Device: Parallel Bars Wheelchair Training Does the Pt Use a Wheelchair?: Yes Wheelchair (FIM): 1 Type of Wheelchair: Manual Mental Status/Objective Comprehension: 7 Expression: 7 Social Interaction: 7 Problem Solvin Memory: 6 ADL-Treatment Feedin (increased time secondary to 10/10 pain rating ) Eating (QC): 6 Groomin (set up for washing face and hands. increased time secondary to pain.) Oral Hygiene (QC): 5 Bathin (Pt required assistance washing LUE secondary to pain, but she was able to wash R arm/chesst/abdomen. Pt unable to wash lower body secondary to pain.) Bathing Location: R Arm, Chest, Abdomen Shower/Bathe Self (QC): 2 Upper Extremity Dressin (Doffed /7: required assistance with bra clasp and getting shirt up back.donned 3/4, bleach boiler puller shirt: required assistance managing shirt down back. ) Upper Body Dressing (QC): 3 Lower Extremity Dressin (pt education on figure four positioning to obey by back precaution. pt attempt but unable to perform. more education will be required. ) Lower Body Dressing (QC): 1 On/Off Footwear (QC): 1 Toiletin Toileting Hygiene (QC): 1 (secondary to pain) Toilet/Commode Transfer: 4 (use of RW ) Toilet Transfer (QC): 4 (use of RW ) Shower: 88 (NT secodnary to safety/ increase pain with back. pt refused ) Assessment/Plan Assessment and Plan Assess & Plan/Chief Complaint Assessment: Status post spinal fusion uncomplicated but slow recovery with debility Hypertension Rheumatoid arthritis GERD Irritable bowel syndrome Hyperlipidemia Overactive bladder Antiplatelet agent chronic Emotional problems/difficult coping Plan: Restart Plavix on Monday Pain control with fentanyl patch Check labs in the morning Bowel regimen Inpatient rehab therapy protocol Much improved today (1) S/P spinal fusion Status: Acute (2) Postoperative anemia Status: Acute (3) Rheumatoid arthritis Status: Chronic Qualifiers: Rheumatoid arthritis location: unspecified site Rheumatoid factor presence: unspecified presence Qualified Codes: M06.9 - Rheumatoid arthritis, unspecified (4) Anxiety Status: Chronic (5) Hyperlipemia Status: Chronic Qualifiers: Hyperlipidemia type: mixed hyperlipidemia Qualified Codes: E78.2 - Mixed hyperlipidemia (6) GERD (gastroesophageal reflux disease) Status: Chronic Qualifiers: Esophagitis presence: without esophagitis Qualified Codes: K21.9 - Gastro- esophageal reflux disease without esophagitis (7) Debility Status: Acute (8) Hypertension Status: Chronic Qualifiers: Hypertension type: essential hypertension Qualified Codes: I10 - Essential (primary) hypertension (9) Chronic pain Status: Chronic Qualifiers: Chronic pain type: chronic pain syndrome Qualified Codes: G89.4 - Chronic pain syndrome (10) Overactive bladder Status: Chronic (11) Acute depression Status: Acute KEV FELICIANO DO Nov 10, 2018 11:44
--- NOTE | 2018-11-10 12:47 | Physical Therapy Daily Note ---
PT Daily Note-Current Subjective Pt agreeable to PT session but stating throughout tx session "I want to lay down now"? Pain Numeric Pain Scale: 10-Worst Possible Pain Comment: back, pt recieved pain med at beginning of tx session Appearance Pt in bathroom with nsg upon arrival for PT session. At end of session, pt R sidelying with all needs met, call light, phone and bedside table within reach Mental Status Patient Orientation: Person, Place, Time Attachments: Drains back support brace, pt requiring extra time to answer question of place, time, reason for being her Transfers Therapy Code Descriptions/Definitions Functional [place] Measure: 0=Not Assessed/NA 4=Minimal Assistance 1=Total Assistance 5=Supervision or Setup 2=Maximal Assistance 6=Modified [place] 3=Moderate Assistance 7=Complete [place] Therapy Quality Codes: 6 Independent with activity with or without an assistive device 5 Patient requires set up or clean up by helper. Patient completes activity by themselves 4 Supervision or touching assist (CGA). [place] provide cues , steadying ass ist 3 The helper provides less than half the effort to complete the activity 2 The helper provides more than half the effort to complete the activity 1 Dependent. The helper does all the effort to complete an activity 7 Patient refused to complete or attempt activity 9 The patient did not perform the activity before the current illness or injury 88 Not attempted due to Medical conditions or safety concerns Transfers (B, C, W/C) (FIM): 4 Rollin (verb inst and encouragement provided) Supine to/from Sit: 5 (sit to supine requiring only inst and verb encouragement) Sit to/from Stand: 4 (CGA to SBA, verb inst for hand placement 9/10 transitions) Gait Training Does the Patient Walk?: Yes Gait (FIM): 4 Distance (FIM): 1=up to 49 ft Distance: 15 Gait Level of Assist: 4 (CGA) Gait Persons Needed: 1 Gait Assistive Device: FWW very slow, antalgic, fwd head, slight fwd flexed trunk Exercises Standing: Heel/toe raises, 3 way Ex=Flex, Abd, Ext, Marching, Mini squats, Sit to Stand, Side steps, Unilateral stance, Weight shifts Standing Reps: 20 Treatments toileting, transfers, safety, balance, gait, education, bed mobility, strengthening, activity tolerance, functional mobility Assessment Current Status: Good Progress Pt requiring sitting rest after each activity and each ex performed PT Short Term Goals Short Term Goals Time Frame: Nov 16, 2018 Transfers (B,C,W/C) (FIM): 3 Gait (FIM): 2 Gait Distance Comment: 50' Gait Level of Assist: 4 Gait Assistive Device: FWW PT Mcfp Goals Cribbing Setter Goals PT Mcfp Goals Time Frame: Nov 30, 2018 Transfers (B,C,W/C) (FIM): 4 Sit to Lying (QC): 3 Lying-Sitting on Side/Bed(QC): 3 Sit to Stand (QC): 4 Rollin Roll Left to Right (QC): 3 Chair/Jtq-ut-Pmcnr Xfer(QC): 4 Car Transfer (QC): 3 Gait (FIM): 4 Distance: 150' Walk 10 feet (QC): 4 Walk 10ft-Uneven Surface(QC): 4 Walk 50ft with 2 Turns (QC): 4 Walk 150 ft (QC): 4 Gait Level of Assist: 4 Gait Assistive Device: FWW Stairs (FIM): 2 # of Steps: 4 1 Step (curb) (QC): 4 4 Steps (QC): 4 Stairs Level Of Assist: 4 PT Plan Treatment/Plan Treatment Plan: Continue Plan of Care Treatment Plan: Bed Mobility, Concurrent Therapy, Education, Functional Activity Desiree, Functional Strength, Group Therapy, Gait, Safety, Therapeutic Exercise, Transfers Treatment Duration: Nov 30, 2018 Frequency: At least 5 of 7 days/Wk (IRF) Estimated Hrs Per Day: 1.5 hours per day Patient and/or Family Agrees t: Yes Safety Risks/Education Patient Education: Gait Training, Transfer Techniques, Reviewed Precautions, Reviewed Don/Doff Brace, Disease Process, Safety Issues Teaching Recipient: Patient Teaching Methods: Demonstration, Discussion Response to Teaching: Verbalize Understanding, Reinforcement Needed Time/GCodes Time In: 823 Time Out: 847 Total Billed Treatment Time: 24 Total Billed Treatment 1 visit, FA x1 unit, EX x 1 unit MIRNA JACOB PTA Nov 10, 2018 12:47
[2018-11-10] MEDS: clonazePAM 1 MG (KlonoPIN) TAB PO PRN (16:50)
[2018-11-10] MEDS: MELATONIN 3 MG TABLET PO PRN (20:39)
[2018-11-10] MEDS: CALCIUM CARBONATE 500 MG (TUMS) TAB.CHEW PO PRN (20:45)
[2018-11-11] MEDS: clonazePAM 1 MG (KlonoPIN) TAB PO PRN ×2 (04:25→15:45)
[2018-11-11 05:39] VITALS: BP 104/66
[2018-11-11] MEDS: LOSARTAN 100 MG (COZAAR) TABLET PO SCH (09:45)
[2018-11-11] MEDS: DOCUSATE SODIUM 100 MG (COLACE) CAP PO SCH ×2 (09:45→20:13)
[2018-11-11] MEDS: SENNA W/DOCUSATE (SENOKOT S) TABLET PO SCH ×2 (09:46→20:13)
[2018-11-11] MEDS: ATORVASTATIN 10 MG (LIPITOR) TABLET PO SCH (09:46)
[2018-11-11] MEDS: GABAPENTIN 600 MG (NEURONTIN) TAB PO SCH ×2 (09:46→20:13)
[2018-11-11] MEDS: OXYBUTYNIN (DITROPAN) 5 MG TAB PO SCH ×2 (09:46→20:13)
[2018-11-11] MEDS: POLYETHYLENE GLYCOL 17 GM (MIRALAX) PACK PO SCH ×2 (09:46→20:13)
[2018-11-11] MEDS: BISACODYL 10 MG SUPP (DULCOLAX) PR SCH ×2 (09:48→22:03)
--- NOTE | 2018-11-11 11:06 | PM&R Progress Note ---
Subjective HPI/CC On Admission Date Seen by Provider: Nov 11, 2018 Time Seen by Provider: 10:45 Chief complaint: Spinal fusion with slow recovery and debility History of present illness: This is a 77-year-old white female patient of Dr. Kassi Ferguson in [facility] who presents to inpatient rehab after undergoing an uncomplicated spinal fusion surgery by Dr. Kim on 11/07/2018 but had just such slow recovery she was required to go to inpatient rehab for intensive and structured therapy program prior to returning home with her . I have reviewed and restarted all of her home medications except for chlorthalidone due to high risk for hyponatremia and postop state. We did r eplace fentanyl patch since it had fallen off and it was taped back to the skin yesterday. She has not had a bowel movement so we will maintain bowel regimen. Overall she is been slow to walk and regain any ADL independence. Check meds and labs. Subjective/Events-last exam Patient doing much better Talks about her pain a lot of which she has acute on chronic pain after surgery Crying a lot last night and very restless Checked meds and labs I talked to her about her crying spells and she thinks it is due to recent deaths in her family recently and her recent surgery and debility and declines meds to help Large BM Reached out to [facility] and was able to obtain approval to remove the drain Conferred with RN Reviewed therapy notes Working with PT well Review of Systems General: Fatigue Musculoskeletal: back pain Objective Exam Vital Signs Vital Signs Date Time Temp Pulse Resp B/P (MAP) Pulse Ox O2 Delivery O2 Flow Rate FiO2 11/11/18 16:02 98.4 77 16 112/60 (77) 95 Room Air Capillary Refill : General Appearance: No Apparent Distress, WD/WN, Chronically ill, Obese HEENT: PERRL/EOMI, Normal ENT Inspection, Pharynx Normal, Moist Mucous Membranes Neck: Full Range of Motion, Normal Inspection, Non Tender, Supple Respiratory: Chest Non Tender, Lungs Clear, Normal Breath Sounds, No Accessory Muscle Use, No Respiratory Distress Cardiovascular: Regular Rate, Rhythm, No Edema, No Gallop, No JVD, No Murmur Gastrointestinal: Normal Bowel Sounds, No Organomegaly, No Pulsatile Mass, Non Tender, Soft Back: Decreased Range of Motion, Muscle Spasm, Vertebral Tenderness Extremity: Normal Capillary Refill, Normal Inspection, Normal Range of Motion, Non Tender, No Calf Tenderness, No Pedal Edema Neurologic/Psychiatric: Alert, Oriented x3, No Motor/Sensory Deficits, Normal Mood/Affect, flight attendant/inflight manager II-XII Norm as Tested, Motor Weakness (generalized lower extremities) Skin: Normal Color, Warm/Dry Lymphatic: No Adenopathy Results/Procedures Lab Patient resulted labs reviewed. FIM Transfers Therapy Code Descriptions/Definitions Functional [place] Measure: 0=Not Assessed/NA 4=Minimal Assistance 1=Total Assistance 5=Supervision or Setup 2=Maximal Assistance 6=Modified [place] 3=Moderate Assistance 7=Complete [place] Therapy Quality Codes: 6 Independent with activity with or without an assistive device 5 Patient requires set up or clean up by helper. Patient completes activity by themselves 4 Supervision or touching assist (CGA). [place] provide cues , steadying assist 3 The helper provides less than half the effort to complete the activity 2 The helper provides more than half the effort to complete the activity 1 Dependent. The helper does all the effort to complete an activity 7 Patient refused to complete or attempt activity 9 The patient did not perform the activity before the current illness or injury 88 Not attempted due to Medical conditions or safety concerns Transfers (B, C, W/C) (FIM): 4 Scootin Rollin (verb inst and encouragement provided) Roll Left to Right (QC): 2 Supine to/from Sit: 5 (sit to supine requiring only inst and verb encouragement) Sit to/from Stand: 4 (CGA to SBA, verb inst for hand placement 9/10 transitions) Sit to Lying (QC): 2 Sit to Stand (QC): 3 Chair/Eno-ki-Kwttx Xfer(QC): 3 Bed to/from Chair: 3 Car Transfer (QC): 2 Gait Training Does the Patient Walk?: Yes Gait (FIM): 4 Distance (FIM): 1=up to 49 ft Distance: 15 Gait Level of Assist: 4 (CGA) Gait Persons Needed: 1 Gait Assistive Device: FWW Wheelchair Training Does the Pt Use a Wheelchair?: Yes Wheelchair (FIM): 1 Type of Wheelchair: Manual Mental Status/Objective Comprehension: 7 Expression: 7 Social Interaction: 7 Problem Solvin Memory: 6 ADL-Treatment Feedin (increased time secondary to 10/10 pain rating ) Eating (QC): 6 Groomin (set up for washing face and hands. increased time secondary to pain.) Oral Hygiene (QC): 5 Bathin (Pt required assistance washing LUE secondary to pain, but she was able to wash R arm/chesst/abdomen. Pt unable to wash lower body secondary to pain.) Bathing Location: R Arm, Chest, Abdomen Shower/Bathe Self (QC): 2 Upper Extremity Dressin (Doffed 5/7: required assistance with bra clasp and getting shirt up back.donned 3/4, clod puller shirt: required assistance managing shirt down back. ) Upper Body Dressing (QC): 3 Lower Extremity Dressin (pt education on figure four positioning to obey by back precaution. pt attempt but unable to perform. more education will be required. ) Lower Body Dressing (QC): 1 On/Off Footwear (QC): 1 Toiletin Toileting Hygiene (QC): 1 (secondary to pain) Toilet/Commode Transfer: 4 (use of RW ) Toilet Transfer (QC): 4 (use of RW ) Shower: 88 (NT secodnary to safety/ increase pain with back. pt refused ) Assessment/Plan Assessment and Plan Assess & Plan/Chief Complaint Assessment: Status post spinal fusion uncomplicated but slow recovery with debility Hypertension Rheumatoid arthritis GERD Irritable bowel syndrome Hyperlipidemia Overactive bladder Antiplatelet agent chronic Emotional problems/difficult coping Plan: Restart Plavix on Monday Pain control with fentanyl patch Check labs in the morning Bowel regimen to maintain Inpatient rehab therapy protocol Much improved today (1) S/P spinal fusion Status: Acute (2) Postoperative anemia Status: Acute (3) Rheumatoid arthritis Status: Chronic Qualifiers: Rheumatoid arthritis location: unspecified site Rheumatoid factor presence: unspecified presence Qualified Codes: M06.9 - Rheumatoid arthritis, unspecified (4) Anxiety Status: Chronic (5) Hyperlipemia Status: Chronic Qualifiers: Hyperlipidemia type: mixed hyperlipidemia Qualified Codes: E78.2 - Mixed hyperlipidemia (6) GERD (gastroesophageal reflux disease) Status: Chronic Qualifiers: Esophagitis presence: without esophagitis Qualified Codes: K21.9 - Gastro- esophageal reflux disease without esophagitis (7) Debility Status: Acute (8) Hypertension Status: Chronic Qualifiers: Hypertension type: essential hypertension Qualified Codes: I10 - Essential (primary) hypertension (9) Chronic pain Status: Chronic Qualifiers: Chronic pain type: chronic pain syndrome Qualified Codes: G89.4 - Chronic pain syndrome (10) Overactive bladder Status: Chronic (11) Acute depression Status: Acute KEV FELICIANO DO Nov 11, 2018 11:06
--- NOTE | 2018-11-11 13:07 | NUR ---
Hemovac dc'd per Dr. Brito. Patient tolerated well.
[2018-11-11 16:02] VITALS: BP 112/60
[2018-11-12] MEDS: clonazePAM 1 MG (KlonoPIN) TAB PO PRN (04:54)
[2018-11-12 05:10] VITALS: BP 124/63
[2018-11-12 08:00] VITALS: BP 111/76
--- NOTE | 2018-11-12 08:40 | PM&R Progress Note ---
Subjective HPI/CC On Admission Date Seen by Provider: Nov 12, 2018 Time Seen by Provider: 08:45 Chief complaint: Spinal fusion with slow recovery and debility History of present illness: This is a 77-year-old white female patient of Dr. Ksasi Ferguson in [facility] who presents to inpatient rehab after undergoing an uncomplicated spinal fusion surgery by Dr. Kim on 11/07/2018 but had just such slow recovery she was required to go to inpatient rehab for intensive and structured therapy program prior to returning home with her . I have reviewed and restarted all of her home medications except for chlorthalidone due to high risk for hyponatremia and postop state. We did r eplace fentanyl patch since it had fallen off and it was taped back to the skin yesterday. She has not had a bowel movement so we will maintain bowel regimen. Overall she is been slow to walk and regain any ADL independence. Check meds and labs. Subjective/Events-last exam Plavix will be restarted today Drain was removed yesterday without any difficulty Pain is pretty well controlled but she does have chronic knee pain which is difficult to manage on a regular basis Participating in all therapy Called her early this morning Bowels are moving very well She does have chronic constipation at home Progressing nicely Conferred with RN Reviewed therapy notes Working with PT well Review of Systems General: Fatigue Musculoskeletal: back pain Objective Exam Vital Signs Vital Signs Date Time Temp Pulse Resp B/P (MAP) Pulse Ox O2 Delivery O2 Flow Rate FiO2 11/12/18 18:00 Room Air 11/12/18 15:49 98.3 70 16 141/82 (101) 97 Capillary Refill : General Appearance: No Apparent Distress, WD/WN, Chronically ill, Obese HEENT: PERRL/EOMI, Normal ENT Inspection, Pharynx Normal, Moist Mucous Membranes Neck: Full Range of Motion, Normal Inspection, Non Tender, Supple Respiratory: Chest Non Tender, Lungs Clear, Normal Breath Sounds, No Accessory Muscle Use, No Respiratory Distress Cardiovascular: Regular Rate, Rhythm, No Edema, No Gallop, No JVD, No Murmur Gastrointestinal: Normal Bowel Sounds, No Organomegaly, No Pulsatile Mass, Non Tender, Soft Back: Decreased Range of Motion, Muscle Spasm, Vertebral Tenderness Extremity: Normal Capillary Refill, Normal Inspection, Normal Range of Motion, Non Tender, No Calf Tenderness, No Pedal Edema Neurologic/Psychiatric: Alert, Oriented x3, No Motor/Sensory Deficits, Normal Mood/Affect, completions engineer II-XII Norm as Tested, Motor Weakness (generalized lower extremities) Skin: Normal Color, Warm/Dry Lymphatic: No Adenopathy Results/Procedures Lab Patient resulted labs reviewed. FIM Transfers Therapy Code Descriptions/Definitions Functional [place] Measure: 0=Not Assessed/NA 4=Minimal Assistance 1=Total Assistance 5=Supervision or Setup 2=Maximal Assistance 6=Modified [place] 3=Moderate Assistance 7=Complete [place] Therapy Quality Codes: 6 Independent with activity with or without an assistive device 5 Patient requires set up or clean up by helper. Patient completes activity by themselves 4 Supervision or touching assist (CGA). [place] provide cues , steadying assist 3 The helper provides less than half the effort to complete the activity 2 The helper provides more than half the effort to complete the activity 1 Dependent. The helper does all the effort to complete an activity 7 Patient refused to complete or attempt activity 9 The patient did not perform the activity before the current illness or injury 88 Not attempted due to Medical conditions or safety concerns Transfers (B, C, W/C) (FIM): 4 Scootin Rollin (verb inst and encouragement provided) Roll Left to Right (QC): 2 Supine to/from Sit: 5 (sit to supine requiring only inst and verb encouragement) Sit to/from Stand: 4 (CGA to SBA, verb inst for hand placement 9/10 transitions) Sit to Lying (QC): 2 Sit to Stand (QC): 3 Chair/Rit-gg-Batir Xfer(QC): 3 Bed to/from Chair: 3 Car Transfer (QC): 2 Gait Training Does the Patient Walk?: Yes Gait (FIM): 4 Distance (FIM): 1=up to 49 ft Distance: 15 Gait Level of Assist: 4 (CGA) Gait Persons Needed: 1 Gait Assistive Device: FWW Wheelchair Training Does the Pt Use a Wheelchair?: Yes Wheelchair (FIM): 1 Type of Wheelchair: Manual Mental Status/Objective Comprehension: 7 Expression: 7 Social Interaction: 7 Problem Solvin Memory: 6 ADL-Treatment Feedin (increased time secondary to 10/10 pain rating ) Eating (QC): 6 Groomin (set up for washing face and hands. increased time secondary to pain.) Oral Hygiene (QC): 5 Bathin (Pt required assistance washing LUE secondary to pain, but she was able to wash R arm/chesst/abdomen. Pt unable to wash lower body secondary to pain.) Bathing Location: R Arm, Chest, Abdomen Shower/Bathe Self (QC): 2 Upper Extremity Dressin (Doffed /: required assistance with bra clasp and getting shirt up back.donned 3/4, press puller shirt: required assistance managing shirt down back. ) Upper Body Dressing (QC): 3 Lower Extremity Dressin (pt education on figure four positioning to obey by back precaution. pt attempt but unable to perform. more education will be required. ) Lower Body Dressing (QC): 1 On/Off Footwear (QC): 1 Toiletin Toileting Hygiene (QC): 1 (secondary to pain) Toilet/Commode Transfer: 4 (use of RW ) Toilet Transfer (QC): 4 (use of RW ) Shower: 88 (NT secodnary to safety/ increase pain with back. pt refused ) Assessment/Plan Assessment and Plan Assess & Plan/Chief Complaint Assessment: Status post spinal fusion uncomplicated but slow recovery with debility Hypertension Rheumatoid arthritis GERD Irritable bowel syndrome Hyperlipidemia Overactive bladder Antiplatelet agent chronic Emotional problems/difficult coping Plan: Restart Plavix on Monday Pain control with fentanyl patch Check labs in the morning Bowel regimen to maintain Inpatient rehab therapy protocol Much improved today (1) S/P spinal fusion Status: Acute (2) Postoperative anemia Status: Acute (3) Rheumatoid arthritis Status: Chronic Qualifiers: Rheumatoid arthritis location: unspecified site Rheumatoid factor presence: unspecified presence Qualified Codes: M06.9 - Rheumatoid arthritis, unspecified (4) Anxiety Status: Chronic (5) Hyperlipemia Status: Chronic Qualifiers: Hyperlipidemia type: mixed hyperlipidemia Qualified Codes: E78.2 - Mixed hyperlipidemia (6) GERD (gastroesophageal reflux disease) Status: Chronic Qualifiers: Esophagitis presence: without esophagitis Qualified Codes: K21.9 - Gastro- esophageal reflux disease without esophagitis (7) Debility Status: Acute (8) Hypertension Status: Chronic Qualifiers: Hypertension type: essential hypertension Qualified Codes: I10 - Essential (primary) hypertension (9) Chronic pain Status: Chronic Qualifiers: Chronic pain type: chronic pain syndrome Qualified Codes: G89.4 - Chronic pain syndrome (10) Overactive bladder Status: Chronic (11) Acute depression Status: Acute KEV FELICIANO DO Nov 12, 2018 08:40
[2018-11-12] MEDS: SENNA W/DOCUSATE (SENOKOT S) TABLET PO SCH ×2 (09:00→20:39)
[2018-11-12] MEDS: DOCUSATE SODIUM 100 MG (COLACE) CAP PO SCH ×2 (09:00→20:38)
[2018-11-12] MEDS: POLYETHYLENE GLYCOL 17 GM (MIRALAX) PACK PO SCH ×2 (09:00→20:37)
[2018-11-12] MEDS: BISACODYL 10 MG SUPP (DULCOLAX) PR SCH ×2 (09:00→20:40)
--- NOTE | 2018-11-12 09:51 | Occupational Ther Daily Note ---
OT Current Status-Daily Note Subjective pt sitting in chair upon OT Arrival. pt agreed to OT TX session with focus on increasing indep with ADL Sand functional transfers. noted high emotions throughout session. pt stated "I cry all the time, just ignore me please" pt A&O X3 Mental Status/Objective Patient Orientation: Person, Place, Situation Therapy Code Descriptions/Definitions Functional [place] Measure: 0=Not Assessed/NA 4=Minimal Assistance 1=Total Assistance 5=Supervision or Setup 2=Maximal Assistance 6=Modified [place] 3=Moderate Assistance 7=Complete [place] ADL-Treatment Therapy Code Descriptions/Definitions Functional [place] Measure: 0=Not Assessed/NA 4=Minimal Assistance 1=Total Assistance 5=Supervision or Setup 2=Maximal Assistance 6=Modified [place] 3=Moderate Assistance 7=Complete [place] Therapy Quality Codes: 6 Independent with activity with or without an assistive device 5 Patient requires set up or clean up by helper. Patient completes activity by themselves 4 Supervision or touching assist (CGA). [place] provide cues , steadying assist 3 The helper provides less than half the effort to complete the activity 2 The helper provides more than half the effort to complete the activity 1 Dependent. The helper does all the effort to complete an activity 7 Patient refused to complete or attempt activity 9 The patient did not perform the activity before the current illness or injury 88 Not attempted due to Medical conditions or safety concerns Grooming (FIM): 5 (standing at sink. wash face, comb hair) Bathing (FIM): 5 (cuing for back precautions ) Bathing Location: L Arm, R Arm, L Upper Leg, R Upper Leg, L Lower Leg (including foot), R Lower Leg (including foot), Chest, Abdomen, Buttocks, Perineal Area Upper Body (FIM): 5 (cuing for proper techn secodanry to back precuations ) Lower Body Dressing (FIM): 4 (underpants, pants, cari socks. pt reuqired assist with cari socks. (education on sock aid to be taught later.). use of reach and dressing stick for pants. post education. ) Transfers (B, C, W/C) (FIM): 4 (use of RW ) Shower Transfer(FIM): 4 (use of GB, shower bench. CGA for safety. balance. ) pt demo high emotions during TX session. pt stated "I have very bad anxiety" pt education on donning/ doffing back brace. pt perform with SBA post session.pt sitting in chair, all needs met. Education OT Patient Education: Correct positioning, Modified ADL techniques, Progress toward Goal/Update tx plan, Purpose of tx/functional activities, Reviewed precautions, Safety issues, Transfer techniques, Use of adapted equipment Teaching Recipient: Patient Teaching Methods: Demonstration, Discussion Response to Teaching: Verbalize Understanding, Return Demonstration OT Short Term Goals Short Term Goals Time Frame: Nov 23, 2018 Grooming(FIM): 5 Bathing(FIM): 5 Bathing Location: L Arm, R Arm, L Upper Leg, R Upper Leg, L Lower Leg (includ ing foot), R Lower Leg (including foot), Chest, Abdomen, Buttocks, Perineal Area Upper Body Dressing(FIM): 5 Lower Body Dressing(FIM): 5 Toileting(FIM): 5 Transfers (B,C,W/C) (FIM): 3 Toilet/Commode Transfer(FIM): 5 Shower Transfer(FIM): 5 1=Demonstrate adherence to instructed precautions during ADL tasks. 2=Patient will verbalize/demonstrate understanding of assistive devices/ modifications for ADL. 3=Patient will improve strength/tolerance for activity to enable patient to perform ADL's. OT [facility] Goals [facility] Goals Time Frame: Dec 07, 2018 Eating (FIM): 7 Eating (QC): 6 Groomin Oral Hygiene (QC): 6 Bathing(FIM): 6 Bathing Location: L Arm, R Arm, L Upper Leg, R Upper Leg, L Lower Leg (including foot), R Lower Leg (including foot), Chest, Abdomen, Buttocks, Perineal Area Shower/Bathe Self (QC): 6 Upper Body Dressing(FIM): 6 Upper Body Dressing (QC): 6 Lower Body Dressing(FIM): 6 Lower Body Dressing (QC): 6 On/Off Footwear (QC): 6 Toileting(FIM): 6 Toileting Hygiene (QC): 6 Transfers (B,C,W/C) (FIM): 6 Toilet/Commode Transfer(FIM): 6 Toilet/Commode Transfer (QC): 6 Shower Transfer(FIM): 6 1=Demonstrate adherence to instructed precautions during ADL tasks. 2=Patient will verbalize/demonstrate understanding of assistive devices/modifications for ADL. 3=Patient will improve strength/tolerance for activity to enable patient to perform ADL's. OT Education/Plan Problem List/Assessment Assessment: Decreased Activ Tolerance, Decreased UE Strength, Impaired Funct Balance, Impaired I ADL's, Impaired Self-Care Skills Discharge Recommendations Plan/Recommendations: Continue POC Equpiment Recommendations-D/C: Weapons Electrical Engineering Officer, Sock Aide, Dressing Stick Treatment Plan/Plan of Care Treatment,Training & Education: Yes Patient would benefit from OT for education, treatment and training to promote independence in ADL's, mobility, safety and/or upper extremity function for ADL's. Plan of Care: ADL Retraining, Caregiver Training, Functional Mobility, Group Exercise/Act as Ind, UE Funct Exercise/Act Frequency: At least 5 of 7 days/Wk (IRF) Estimated Hrs Per Day: 1 hour per day (60-90 min) Agreement: Yes Rehab Potential: Fair Time/GCodes Start Time: 08:35 Stop Time: 09:30 Billed Treatment Time ADL 55 MINUTES , 4 units SHA LOW OT Nov 12, 2018 09:51
--- NOTE | 2018-11-12 10:00 | Physical Therapy Daily Note ---
PT Daily Note-Current Subjective Pt. agreed to Rx. States her knees hurt and that is not new. "If I cry just ignore me , I cry a lot and its not new either". Pt. upset and shares that her life is in the midst of so much change and family turmoil. Pain Numeric Pain Scale: 4 Location: Medial Location Body Site: Back Pain Description: Ache Mental Status Patient Orientation: Person, Place, Time, Situation Attachments: Other-See Comments (aspen back brace) Transfers Therapy Code Descriptions/Definitions Functional [place] Measure: 0=Not Assessed/NA 4=Minimal Assistance 1=Total Assistance 5=Supervision or Setup 2=Maximal Assistance 6=Modified [place] 3=Moderate Assistance 7=Complete [place] Therapy Quality Codes: 6 Independent with activity with or without an assistive device 5 Patient requires set up or clean up by helper. Patient completes activity by themselves 4 Supervision or touching assist (CGA). [place] provide cues , steadying assist 3 The helper provides less than half the effort to complete the activity 2 The helper provides more than half the effort to complete the activity 1 Dependent. The helper does all the effort to complete an activity 7 Patient refused to complete or attempt activity 9 The patient did not perform the activity before the current illness or injury 88 Not attempted due to Medical conditions or safety concerns Transfers (B, C, W/C) (FIM): 5 Scootin Rollin Supine to/from Sit: 5 Sit to/from Stand: 5 Gait Training Does the Patient Walk?: Yes Gait (FIM): 4 Distance (FIM): 3=150 ft (150x3,25) Gait Level of Assist: 4 Gait Persons Needed: 1 Gait Assistive Device: FWW ow, no LOB, instruction for alignment Exercises Supine Ex: Ankle pumps, Quad Set, Glut sets, Heel Slides, Short Arc Quads, Hip abd/add Supine Reps: 15 (x2) Seated Therapy Exercises: Ankle pumps, Sit to stand, Long arc quads, Hip flexion, Hip abd/add Seated Reps: 12 NuStep Minutes: 12 NuStep Workload: 3 Treatments requested to go to bathroom , upset that she is having loose stools, needed assist for doffing pants and briefs and donning clean as well as clean after BM Assessment Current Status: Good Progress frequently emotional, cries and states she has had long standing emotional problems and takes clonazepam which helps PT Short Term Goals Short Term Goals Time Frame: Nov 16, 2018 Transfers (B,C,W/C) (FIM): 3 Gait (FIM): 2 Gait Distance Comment: 50' Gait Level of Assist: 4 Gait Assistive Device: FWW PT [place] Goals [place] Goals PT [facility] Goals Time Frame: Nov 30, 2018 Transfers (B,C,W/C) (FIM): 4 Sit to Lying (QC): 3 Lying-Sitting on Side/Bed(QC): 3 Sit to Stand (QC): 4 Rollin (verb inst and encouragement provided) Roll Left to Right (QC): 3 Chair/Lum-jp-Dgsbx Xfer(QC): 4 Car Transfer (QC): 3 Gait (FIM): 4 Distance: 150' Walk 10 feet (QC): 4 Walk 10ft-Uneven Surface(QC): 4 Walk 50ft with 2 Turns (QC): 4 Walk 150 ft (QC): 4 Gait Level of Assist: 4 Gait Assistive Device: FWW Stairs (FIM): 2 # of Steps: 4 1 Step (curb) (QC): 4 4 Steps (QC): 4 Stairs Level Of Assist: 4 PT Plan Treatment/Plan Treatment Plan: Continue Plan of Care Treatment Plan: Bed Mobility, Concurrent Therapy, Education, Functional Acti vity Desiree, Functional Strength, Group Therapy, Gait, Safety, Therapeutic Exercise, Transfers Treatment Duration: Nov 30, 2018 Frequency: At least 5 of 7 days/Wk (IRF) Estimated Hrs Per Day: 1.5 hours per day Patient and/or Family Agrees t: Yes Safety Risks/Education Patient Education: Gait Training, Transfer Techniques, Correct Positioning, Disease Process, Safety Issues Teaching Recipient: Patient Teaching Methods: Demonstration, Discussion Response to Teaching: Verbalize Understanding, Return Demonstration, Reinforcement Needed Time/GCodes Time In: 930 (1300) Time Out: 1000 (1400) Total Billed Treatment Time: 90 Total Billed Treatment 1x2, EX30m,GT30m,FA30m SOTERO SALVADOR ADULT HIGH SCHOOL INSTRUCTOR Nov 12, 2018 10:00
[2018-11-12] MEDS: GABAPENTIN 600 MG (NEURONTIN) TAB PO SCH ×2 (10:06→20:35)
[2018-11-12] MEDS: OXYBUTYNIN (DITROPAN) 5 MG TAB PO SCH ×2 (10:07→20:34)
[2018-11-12] MEDS: ATORVASTATIN 10 MG (LIPITOR) TABLET PO SCH (10:07)
[2018-11-12] MEDS: LOSARTAN 100 MG (COZAAR) TABLET PO SCH (10:07)
[2018-11-12] MEDS: CLOPIDOGREL 75 MG (PLAVIX) TABLET PO SCH (10:13)
--- NOTE | 2018-11-12 10:20 | NUR ---
Pastoral care visit.
--- NOTE | 2018-11-12 10:55 | Progress Note - Hospitalist ---
[facility] 11/12/18 1054: Progress Note Ms. Bahena had some relief with miralax treatment - her baseline is to use miralax 2-3 times/week She had some pain this morning, but is relieved with sitting up She was sitting at the table this morning between therapy sessions. no acute concerns KELLE FELICIANO DO 11/12/182045: Supervisory-Addendum Brief Verification & Attestation Participated in pt care: history, MDM, physical Personally performed: exam, history, MDM, supervision of care Care discussed with: Medical Student Procedures: n/a Results interpretation: Verified all documentation Verification and Attestation of Medical Student E/M Service A medical student performed and documented this service in my presence. I reviewed and verified all information documented by the medical student and made modifications to such information, when appropriate. I personally performed the physical exam and medical decision making. Kelle Feliciaon Nov 12, 2018,20:46 [facility] Nov 12, 2018 10:54 KELLE FELICIANO DO Nov 12, 2018 20:46
--- NOTE | 2018-11-12 11:59 | Occupational Ther Daily Note ---
OT Current Status-Daily Note Subjective pt laying in be dupon OT arrival. pt agreed to OT TX session with focus on increase indep with LB dressing, toileting, and grooming. Mental Status/Objective Therapy Code Descriptions/Definitions Functional [place] Measure: 0=Not Assessed/NA 4=Minimal Assistance 1=Total Assistance 5=Supervision or Setup 2=Maximal Assistance 6=Modified [place] 3=Moderate Assistance 7=Complete [place] ADL-Treatment Therapy Code Descriptions/Definitions Functional [place] Measure: 0=Not Assessed/NA 4=Minimal Assistance 1=Total Assistance 5=Supervision or Setup 2=Maximal Assistance 6=Modified [place] 3=Moderate Assistance 7=Complete [place] Therapy Quality Codes: 6 Independent with activity with or without an assistive device 5 Patient requires set up or clean up by helper. Patient completes activity by themselves 4 Supervision or touching assist (CGA). [place] provide cues , steadying assist 3 The helper provides less than half the effort to complete the activity 2 The helper provides more than half the effort to complete the activity 1 Dependent. The helper does all the effort to complete an activity 7 Patient refused to complete or attempt activity 9 The patient did not perform the activity before the current illness or injury 88 Not attempted due to Medical conditions or safety concerns Grooming (FIM): 5 (standing at sink with RW ) Lower Body Dressing (FIM): 5 (use of AE. pt education on use of sock aid. pt bhavana/ doff cari socks X2 ) Toileting (FIM): 5 (3/3 toieting tasks. SBA for safety/ balance. ) Transfers (B, C, W/C) (FIM): 5 (use of RW ) Toilet/Commode Transfer (FIM): 5 (use of RW ) pt perform bed mobility supine to sit post education on log roll. noted pt required MOD VC for proper techniques. pt then ambulated to bathroom with SBA using RW. pt education on proper placement of RW while in bathroom. pt perform toileting, and grooming in bathroom. pt then sat in recliner chair, call light within reach, all needs met. lunch ordered. Education OT Patient Education: Modified ADL techniques, Progress toward Goal/Update tx plan, Purpose of tx/functional activities, Safety issues, Transfer techniques, Use of adapted equipment Teaching Recipient: Patient Teaching Methods: Demonstration, Discussion Response to Teaching: Verbalize Understanding, Return Demonstration OT Short Term Goals Short Term Goals Time Frame: Nov 23, 2018 Grooming(FIM): 5 Bathing(FIM): 5 Bathing Location: L Arm, R Arm, L Upper Leg, R Upper Leg, L Lower Leg (including foot), R Lower Leg (including foot), Chest, Abdomen, Buttocks, Perineal Area Upper Body Dressing(FIM): 5 Lower Body Dressing(FIM): 5 Toileting(FIM): 5 Transfers (B,C,W/C) (FIM): 3 Toilet/Commode Transfer(FIM): 5 Shower Transfer(FIM): 5 1=Demonstrate adherence to instructed precautions during ADL tasks. 2=Patient will verbalize/demonstrate understanding of assistive devices/modifications for ADL. 3=Patient will improve strength/tolerance for activity to enable patient to perform ADL's. OT Sheeter Machine Operator Goals Sheeter Machine Operator Goals Time Frame: Dec 07, 2018 Eating (FIM): 7 Eating (QC): 6 Groomin Oral Hygiene (QC): 6 Bathing(FIM): 6 Bathing Location: L Arm, R Arm, L Upper Leg, R Upper Leg, L Lower Leg (including foot), R Lower Leg (including foot), Chest, Abdomen, Buttocks, Pe rineal Area Shower/Bathe Self (QC): 6 Upper Body Dressing(FIM): 6 Upper Body Dressing (QC): 6 Lower Body Dressing(FIM): 6 Lower Body Dressing (QC): 6 On/Off Footwear (QC): 6 Toileting(FIM): 6 Toileting Hygiene (QC): 6 Transfers (B,C,W/C) (FIM): 6 Toilet/Commode Transfer(FIM): 6 Toilet/Commode Transfer (QC): 6 Shower Transfer(FIM): 6 1=Demonstrate adherence to instructed precautions during ADL tasks. 2=Patient will verbalize/demonstrate understanding of assistive devices/modifications for ADL. 3=Patient will improve strength/tolerance for activity to enable patient to perform ADL's. OT Education/Plan Problem List/Assessment Assessment: Decreased Activ Tolerance, Impaired I ADL's, Impaired Self-Care Skills Discharge Recommendations Plan/Recommendations: Continue POC Treatment Plan/Plan of Care Treatment,Training & Education: Yes Patient would benefit from OT for education, treatment and training to promote independence in ADL's, mobility, safety and/or upper extremity function for ADL's. Plan of Care: ADL Retraining, Caregiver Training, Functional Mobility, Group Exercise/Act as Ind, UE Funct Exercise/Act Frequency: At least 5 of 7 days/Wk (IRF) Estimated Hrs Per Day: 1 hour per day (60-90 min) Agreement: Yes Rehab Potential: Fair Time/GCodes Start Time: 11:15 Stop Time: 12:00 Billed Treatment Time ADL 45 minutes, 3 units SHA LOW OT Nov 12, 2018 11:59
[2018-11-12 15:49] VITALS: BP 141/82
[2018-11-12] MEDS: [UNRECOGNIZED DRUG - REMARK] TP SCH (16:42)
[2018-11-12] MEDS: fentaNYL PATCH 75 MCG (DURAGESIC) TD SCH (16:45)
[2018-11-12] MEDS: ACETAMINOPHEN 500 MG TAB (TYLENOL) PO PRN (16:52)
--- NOTE | 2018-11-12 17:00 | NUR ---
GETS TEARY-EYED EASILYF Addendum: 11/12/18 at 1733 by MAILE RODNEY RN GETS TEARY-EYED EASILY. RATES BILATERAL KNEE PAIN A 9 OR 10 OFTEN, BUT NAPS A LOT THIS AFTERNOON. PLAVIX WAS RESUMED TODAY. PATIENT REPORTED GOT UP ON OWN TO BATHROOM EARLIER "WHEN I HAD TO HAVE A BM". REMINDED TO PLEASE CALL FOR HELP WHEN NEEDS TO GET UP.
--- NOTE | 2018-11-12 17:33 | NUR ---
BOOM PUMP OPERATOR met with patient to complete initial assessment. Patient was alert and oriented and agreeable to assessment. Patient admitted to ARU following spinal fusion performed by Dr. Kim. Prior to surgery patient and spouse resided in a multilevel home with 2 steps at the entrance and 13 steps within the home with railing. Patient reports independence with all activity; however, her biggest struggle reported as knee pain from spinal pressure. Prior to surgery she did not utilize DME; however, does possess a walker and shower chair. Patient continued to drive and completed household as needed. Patient device spouse, less as primary contact at [phone]. And secondary contact as daughter Summer of [place] yesenia at [phone]. Insurance verified as Medicare and AARP with prescription coverage and preferred pharmacy listed as [facility]. PCP identified as Dr. Ferguson. BOOM PUMP OPERATOR reviewed typical a RU length of stay and weekly team conferences. Patient expresses no questions or concerns at this time. BOOM PUMP OPERATOR continue to follow.
--- NOTE | 2018-11-12 19:25 | NUR ---
bedside report received from NOEMÍ NOE, assume care of pt
--- NOTE | 2018-11-12 20:30 | NUR ---
assessments & interventions completed, see assessments & interventions, pt c/o pain level 10/10 on numeric scale, oxyir 5mg po given, pt refused Colace, miralax, Senokot & Dulcolax supp
--- NOTE | 2018-11-12 20:45 | Individualized Plan of Care ---
Individualized Plan of Care Rehab Nursing IPOC Order Admission Date Nov 09, 2018 at 14:05 Current Orders Orders Admission Order(Inpt,Obs,Sdc) (11/09/18 13:44) Robotic Toy Inventor-Inpt Rehab Con (11/09/18 13:44) Rehab Nursing Orders-Ipoc (11/09/18 13:44) Physical Therapy Rehab Orders (11/09/18 13:44) Occupational Therapy Rehab Ord (11/09/18 13:44) Speech Therapy Rehab Orders (11/09/18 13:44) Precautions (Aru) (11/09/18 13:44) Weekly Weight (Lbs) WEEK (11/09/18 13:44) Rehab-Intensity Of Therapy (11/09/18 13:44) Initiate Admission Nursing Pro .admission (11/09/18 13:44) Fentanyl Patch (Duragesic Patch) (11/09/18 16:00) Oxycodone Immediate Rel Tablet (Oxyir Ta (11/09/18 13:45) Clonazepam Tablet (Klonopin Tablet) (11/09/18 13:45) Admission Arrival Bed Request (11/09/18 14:09) Oxycodone Immediate Rel Tablet (Oxyir Ta (11/09/18 14:28) Patch Removal (Patch Removal) (11/09/18 15:49) Atorvastatin Tablet (Lipitor Tablet) (11/10/18 09:00) Fentanyl Patch (Duragesic Patch) (11/09/18 15:45) Gabapentin Capsule/Tablet (Neurontin Cap (11/09/18 15:45) Gabapentin Capsule/Tablet (Neurontin Cap (11/09/18 21:00) Losartan Tablet (Cozaar Tablet) (11/10/18 09:00) Omeprazole (Non-Formulary) (Prilosec (No (11/09/18 15:45) Ondansetron Oral Dissolve Tab (Zofran (11/09/18 15:45) Oxybutynin Xl (Non-Formulary) (Ditropan- (11/10/18 09:00) Oxycodone Immediate Rel Tablet (Oxyir Ta (11/09/18 15:45) (Nf) Clonazepam (11/09/18 21:00) (Nf) Hydroxyzine Pamoate (11/09/18 15:45) Patient Visit (11/09/18 ) Pt Eval Moderate Complexity (11/09/18 ) Gait Training, Ea 15 Min (11/09/18 ) Functional Activities, Ea 15 (11/09/18 ) Pantoprazole Tablet (Protonix Tablet) (11/09/18 16:30) Oxybutynin Tablet (Ditropan Tablet) (11/10/18 09:00) Hydroxyzine Cap/Tab (Vistaril) (11/09/18 16:30) General/Regular (11/09/18 Dinner) Patient Visit (11/09/18 ) Speech Sound Lang Comp (11/09/18 ) Ambulate 08,12,20 (11/09/18 17:24) Sequential Compression Device 08,20 (11/09/18 17:24) Dvt/Vte Risk - Notifiy Physici .ONCE (11/09/18 17:24) Acetaminophen Tablet (Tylenol Tablet) (11/09/18 22:00) Calcium Carbonate Chew Tablet (Antacid C (11/09/18 22:00) Diphenhydramine Tablet (Benadryl Tablet) (11/09/18 22:00) Docusate Sodium Capsule (Colace Capsule) (11/10/18 09:00) Bisacodyl Suppository (Dulcolax Supposit (11/10/18 09:00) Melatonin Tablet (Melatonin Tablet) (11/09/18 22:00) Polyethylene Glycol Powder Pkt (Miralax (11/10/18 09:00) Ondansetron Oral Dissolve Tab (Zofran (11/09/18 22:00) Senna S Tablet (Senokot S Tablet) (11/10/18 09:00) Cbc With Automated Diff (11/10/18 06:00) Comprehensive Metabolic Panel (11/10/18 06:00) Incentive Spirometry Initial (11/09/18 21:54) Incentive Spirometry (Nursing) Q2H (11/09/18 21:54) Patient Visit (11/10/18 ) Functional Activities, Ea 15 (11/10/18 ) Exercise Therap, Ea 15 Min (11/10/18 ) Drain: Discontinue (Order) (11/11/18 13:00) Clopidogrel Tablet (Plavix Tablet) (11/12/18 10:00) Patient Visit (11/12/18 ) Exercise Therap, Ea 15 Min (11/12/18 ) Functional Activities, Ea 15 (11/12/18 ) Gait Training, Ea 15 Min (11/12/18 ) Rehab Nursing Orders: Ongoing Assess. of Cognitive Status, Ongoing Assess. of Function Status, Bowel Management, Disease Management & Educaiton, DVT Prophylaxis, Fall Prevention, Fluid/Electrolyte/Nutrition Mgmt, Infection Prevention, Medication Management & Education, Management of Risks & Complications, Management of Skin Intergrity, Nutrition Management, Pain Management, Patient/Family Support, Safety Management Intensity of Therapy to be met Patient to be seen: Min.3h per day/5 of 7d PT IPOC Problem List: Activity Tolerance, Functional Strength, Safety, Balance, Gait, Transfer, Bed Mobility, ROM Treatment Plan: Continue Plan of Care Bed Mobility, Concurrent Therapy, Education, Functional Activity Desiree, Functional Strength, Group Therapy, Gait, Safety, Therapeutic Exercise, Transfers Treatment Duration: Nov 30, 2018 Frequency: At least 5 of 7 days/Wk (IRF) Estimated Hrs Per Day: 1.5 hours per day OT IPOC Problems: Decreased Activ Tolerance, Impaired I ADL's, Impaired Self-Care Skills OT Treatment, Training and Edu: Yes Plan of Care: ADL Retraining, Caregiver Training, Functional Mobility, Group Exercise/Act as Ind, UE Funct Exercise/Act Treatment Duration: Nov 12, 2018 Frequency: At least 5 of 7 days/Wk (IRF) Estimated Hrs Per Day: 1 hour per day (60-90 min) ST IPOC Speech Therapy Treatment Plan: Discontinue ST Treatment Duration: Nov 09, 2018 Frequency: 1 time per week Estimated Hrs Per Day: .25 hour per day Robotic Toy Inventor/Case Mgmt Robotic Toy Inventor/Case Managemen: Discharge Planning Dietitian/Commercial Analyst Dietitian/Commercial Analyst to monitor nutritional status and make changes and/or recommendations as needed and work with speech pathology on dietary upgrades as the occur. Physician IPOC Medical Issues being managed closely and that require the 24 hour availability of a physician: Patient with slow recovery and chronic pain maintained on high dose Fentanyl patch with labile emotional status will need close physician monitoring due to high risk for decompensation Medical Issues: Bowel/Bladder Function, DVT Prophylaxis, Falls Precautions, Fluid/Electrolyte/Nutrition Balance, Pain Management Brief Synthesis of Preadmission Screen, Post-Admission Evaluation, and Therapy Evaluations: PT will focus on ambulation with walker and minimize pain from back surgery OT will help regain independence with ADL's and safety management Medical Prognosis: Good Anticipated Length of Stay: 7 days KEV FELICIANO DO Nov 12, 2018 20:45
--- NOTE | 2018-11-12 21:20 | NUR ---
pain level 5/10 on numeric scale
[2018-11-13] MEDS: ACETAMINOPHEN 500 MG TAB (TYLENOL) PO PRN (03:48)
[2018-11-13] MEDS: clonazePAM 1 MG (KlonoPIN) TAB PO PRN (03:48)
--- NOTE | 2018-11-13 03:48 | NUR ---
c/o pain level 9/10 on numeric scale & anxiety Tylenol 500mg & Klonopin 1 mg po given
--- NOTE | 2018-11-13 04:16 | NUR ---
resting quietly in bed, pain level 0/10 on flacc scale
[2018-11-13 05:41] VITALS: BP 146/76
--- NOTE | 2018-11-13 07:26 | NUR ---
bedside report given to NOEMÍ NOE
[2018-11-13 08:00] VITALS: BP 117/64
--- NOTE | 2018-11-13 08:11 | Occupational Ther Daily Note ---
OT Current Status-Daily Note Subjective Pt sitting in recliner at start of OT session, agreed to OT tx this AM focusing on UE stengthening/endurance in the gym. Pt reported pain 10/10 in her back, nursing notified and said they will bring her a pain pill. Mental Status/Objective Patient Orientation: Normal For Age Therapy Code Descriptions/Definitions Functional [place] Measure: 0=Not Assessed/NA 4=Minimal Assistance 1=Total Assistance 5=Supervision or Setup 2=Maximal Assistance 6=Modified [place] 3=Moderate Assistance 7=Complete [place] ADL-Treatment Therapy Code Descriptions/Definitions Functional [place] Measure: 0=Not Assessed/NA 4=Minimal Assistance 1=Total Assistance 5=Supervision or Setup 2=Maximal Assistance 6=Modified [place] 3=Moderate Assistance 7=Complete [place] Therapy Quality Codes: 6 Independent with activity with or without an assistive device 5 Patient requires set up or clean up by helper. Patient completes activity by themselves 4 Supervision or touching assist (CGA). [place] provide cues , steadying assist 3 The helper provides less than half the effort to complete the activity 2 The helper provides more than half the effort to complete the activity 1 Dependent. The helper does all the effort to complete an activity 7 Patient refused to complete or attempt activity 9 The patient did not perform the activity before the current illness or injury 88 Not attempted due to Medical conditions or safety concerns Transfers (B, C, W/C) (FIM): 4 (pt sit to stand from w/c with CGA and CGA during transfer to bed. Min A sit to supine, pt was able to both legs into bed with CGA provided to her leg.) Other Treatment Pt ambulated to gym CGA with RW. In order to increase BUE strength and endurance for ADLs and functional activities, pt completed the following activities: Pegboard, BUE 2lb weight wrist cuffs: X100 pegs into pegboard seated, alternating hands, completed within 10 min 40 sec. Pt then removed all 100 pegs without wrist cuff weights. 2lb Freeweight: X25 reps, X2sets each BUE elbow flexion, wrist ext/flex, pro/sup. Pt taken back to her room in w/c secondary to increased pain. Post OT session pt laying in bed, call light in reach and needs met. Education OT Patient Education: Correct positioning, Energy conservation, Progress toward Goal/Update tx plan, Purpose of tx/functional activities, Transfer techniques Teaching Recipient: Patient Teaching Methods: Demonstration, Discussion Response to Teaching: Verbalize Understanding, Return Demonstration OT Short Term Goals Short Term Goals Time Frame: Nov 23, 2018 Grooming(FIM): 5 Bathing(FIM): 5 Bathing Location: L Arm, R Arm, L Upper Leg, R Upper Leg, L Lower Leg (including foot), R Lower Leg (including foot), Chest, Abdomen, Buttocks, Perineal Area Upper Body Dressing(FIM): 5 Lower Body Dressing(FIM): 5 Toileting(FIM): 5 Transfers (B,C,W/C) (FIM): 3 Toilet/Commode Transfer(FIM): 5 Shower Transfer(FIM): 5 1=Demonstrate adherence to instructed precautions during ADL tasks. 2=Patient will verbalize/demonstrate understanding of assistive devices/modifications for ADL. 3=Patient will improve strength/tolerance for activity to enable patient to perform ADL's. OT Skilled Nursing Goals Automotive Upholsterer Goals Time Frame: Dec 07, 2018 Eating (FIM): 7 Eating (QC): 6 Groomin Oral Hygiene (QC): 6 Bathing(FIM): 6 Bathing Location: L Arm, R Arm, L Upper Leg, R Upper Leg, L Lower Leg (including foot), R Lower Leg (including foot), Chest, Abdomen, Buttocks, Perineal Area Shower/Bathe Self (QC): 6 Upper Body Dressing(FIM): 6 Upper Body Dressing (QC): 6 Lower Body Dressing(FIM): 6 Lower Body Dressing (QC): 6 On/Off Footwear (QC): 6 Toileting(FIM): 6 Toileting Hygiene (QC): 6 Transfers (B,C,W/C) (FIM): 6 Toilet/Commode Transfer(FIM): 6 Toilet/Commode Transfer (QC): 6 Shower Transfer(FIM): 6 1=Demonstrate adherence to instructed precautions during ADL tasks. 2=Patient will verbalize/demonstrate understanding of assistive devices/modifications for ADL. 3=Patient will improve strength/tolerance for activity to enable patient to perform ADL's. OT Education/Plan Problem List/Assessment Assessment: Decreased Activ Tolerance, Decreased UE Strength, Impaired I ADL's, Impaired Self-Care Skills Discharge Recommendations Plan/Recommendations: Continue POC Treatment Plan/Plan of Care Treatment,Training & Education: Yes Patient would benefit from OT for education, treatment and training to promote independence in ADL's, mobility, safety and/or upper extremity function for AD L's. Plan of Care: ADL Retraining, Caregiver Training, Functional Mobility, Group Exercise/Act as Ind, UE Funct Exercise/Act Treatment Duration: Nov 12, 2018 Frequency: At least 5 of 7 days/Wk (IRF) Estimated Hrs Per Day: 1 hour per day (60-90 min) Agreement: Yes Rehab Potential: Fair Time/GCodes Start Time: 08:00 Stop Time: 08:45 Total Time Billed (hr/min): 45 Billed Treatment Time FA 2, EX 1 DASH GAMBOA OT Nov 13, 2018 08:11
--- NOTE | 2018-11-13 09:02 | PM&R Progress Note ---
Subjective HPI/CC On Admission Date Seen by Provider: Nov 13, 2018 Time Seen by Provider: 09:00 Chief complaint: Spinal fusion with slow recovery and debility History of present illness: This is a 77-year-old white female patient of Dr. Kassi Ferguson in [facility] who presents to inpatient rehab after undergoing an uncomplicated spinal fusion surgery by Dr. Kim on 11/07/2018 but had just such slow recovery she was required to go to inpatient rehab for intensive and structured therapy program prior to returning home with her . I have reviewed and restarted all of her home medications except for chlorthalidone due to high risk for hyponatremia and postop state. We did r eplace fentanyl patch since it had fallen off and it was taped back to the skin yesterday. She has not had a bowel movement so we will maintain bowel regimen. Overall she is been slow to walk and regain any ADL independence. Check meds and labs. Subjective/Events-last exam Very tearful at times but then again she declines any type of anti-depressant when I talked to her yesterday. Labile heart rate noted yesterday by the Pt so will get an EKG and initiate telemetry for now, if I am concerned about that at all today I will consult cardiology. at the bedside. Overall feels pretty good but needs he pain medication a little sooner than she is getting so I did change the Oxycodone to every 6 hours and maintaining the Fentanyl patch at 75. She does have chronic constipation at home Progressing nicely Conferred with RN Reviewed therapy notes Working with PT well Objective Exam Vital Signs Vital Signs Date Time Temp Pulse Resp B/P (MAP) Pulse Ox O2 Delivery O2 Flow Rate FiO2 11/13/18 17:12 98.4 79 18 118/74 (89) 97 Room Air Capillary Refill : General Appearance: No Apparent Distress, WD/WN, Chronically ill, Obese HEENT: PERRL/EOMI, Normal ENT Inspection, Pharynx Normal, Moist Mucous Membranes Neck: Full Range of Motion, Normal Inspection, Non Tender, Supple Respiratory: Chest Non Tender, Lungs Clear, Normal Breath Sounds, No Accessory Muscle Use, No Respiratory Distress Cardiovascular: Regular Rate, Rhythm, No Edema, No Gallop, No JVD, No Murmur Gastrointestinal: Normal Bowel Sounds, No Organomegaly, No Pulsatile Mass, Non Tender, Soft Back: Decreased Range of Motion, Muscle Spasm, Vertebral Tenderness Extremity: Normal Capillary Refill, Normal Inspection, Normal Range of Motion, Non Tender, No Calf Tenderness, No Pedal Edema Neurologic/Psychiatric: Alert, Oriented x3, No Motor/Sensory Deficits, Normal Mood/Affect, healthcare educator II-XII Norm as Tested, Motor Weakness (generalized lower extremities) Skin: Normal Color, Warm/Dry Lymphatic: No Adenopathy Results/Procedures Lab Patient resulted labs reviewed. FIM Transfers Therapy Code Descriptions/Definitions Functional [place] Measure: 0=Not Assessed/NA 4=Minimal Assistance 1=Total Assistance 5=Supervision or Setup 2=Maximal Assistance 6=Modified [place] 3=Moderate Assistance 7=Complete [place] Therapy Quality Codes: 6 Independent with activity with or without an assistive device 5 Patient requires set up or clean up by helper. Patient completes activity by themselves 4 Supervision or touching assist (CGA). [place] provide cues , steadying assist 3 The helper provides less than half the effort to complete the activity 2 The helper provides more than half the effort to complete the activity 1 Dependent. The helper does all the effort to complete an activity 7 Patient refused to complete or attempt activity 9 The patient did not perform the activity before the current illness or injury 88 Not attempted due to Medical conditions or safety concerns Transfers (B, C, W/C) (FIM): 4 Scootin Rollin Roll Left to Right (QC): 2 Supine to/from Sit: 5 Sit to/from Stand: 5 Sit to Lying (QC): 2 Sit to Stand (QC): 3 Chair/Tyc-lv-Pvfao Xfer(QC): 3 Bed to/from Chair: 3 Car Transfer (QC): 2 Gait Training Does the Patient Walk?: Yes Gait (FIM): 4 Distance (FIM): 3=150 ft (150x3,25) Distance: 15 Gait Level of Assist: 4 Gait Persons Needed: 1 Gait Assistive Device: FWW Wheelchair Training Does the Pt Use a Wheelchair?: Yes Wheelchair (FIM): 1 Type of Wheelchair: Manual Mental Status/Objective Comprehension: 7 Expression: 7 Social Interaction: 7 Problem Solvin Memory: 6 ADL-Treatment Feedin (increased time secondary to 10/10 pain rating ) Eating (QC): 6 Groomin (standing at sink with RW ) Oral Hygiene (QC): 5 Bathin (cuing for back precautions ) Bathing Location: L Arm, R Arm, L Upper Leg, R Upper Leg, L Lower Leg (including foot), R Lower Leg (including foot), Chest, Abdomen, Buttocks, Perineal Area Shower/Bathe Self (QC): 2 Upper Extremity Dressin (cuing for proper techn secodanry to back precua tions ) Upper Body Dressing (QC): 3 Lower Extremity Dressin (use of AE. pt education on use of sock aid. pt bhavana/ doff cari socks X2 ) Lower Body Dressing (QC): 1 On/Off Footwear (QC): 1 Toiletin (3/3 toieting tasks. SBA for safety/ balance. ) Toileting Hygiene (QC): 1 (secondary to pain) Toilet/Commode Transfer: 5 (use of RW ) Toilet Transfer (QC): 4 (use of RW ) Shower: 4 (use of GB, shower bench. CGA for safety. balance. ) Assessment/Plan Assessment and Plan Assess & Plan/Chief Complaint Assessment: Status post spinal fusion uncomplicated but slow recovery with debility Hypertension Rheumatoid arthritis GERD Irritable bowel syndrome Hyperlipidemia Overactive bladder Antiplatelet agent chronic Emotional problems/difficult coping Plan: Restarted Plavix Monday Pain control with fentanyl patch Check labs in the morning Bowel regimen to maintain Inpatient rehab therapy protocol Much improved today Increase pain meds by decreasing hours in between (1) S/P spinal fusion Status: Acute (2) Postoperative anemia Status: Acute (3) Rheumatoid arthritis Status: Chronic Qualifiers: Rheumatoid arthritis location: unspecified site Rheumatoid factor presence: unspecified presence Qualified Codes: M06.9 - Rheumatoid arthritis, unspe cified (4) Anxiety Status: Chronic (5) Hyperlipemia Status: Chronic Qualifiers: Hyperlipidemia type: mixed hyperlipidemia Qualified Codes: E78.2 - Mixed hyperlipidemia (6) GERD (gastroesophageal reflux disease) Status: Chronic Qualifiers: Esophagitis presence: without esophagitis Qualified Codes: K21.9 - Gastro-esophageal reflux disease without esophagitis (7) Debility Status: Acute (8) Hypertension Status: Chronic Qualifiers: Hypertension type: essential hypertension Qualified Codes: I10 - Essential (primary) hypertension (9) Chronic pain Status: Chronic Qualifiers: Chronic pain type: chronic pain syndrome Qualified Codes: G89.4 - Chronic pain syndrome (10) Overactive bladder Status: Chronic (11) Acute depression Status: Acute KEV FELICIANO DO Nov 13, 2018 09:02
[2018-11-13] MEDS: ATORVASTATIN 10 MG (LIPITOR) TABLET PO SCH (09:03)
[2018-11-13] MEDS: LOSARTAN 100 MG (COZAAR) TABLET PO SCH (09:03)
[2018-11-13] MEDS: GABAPENTIN 600 MG (NEURONTIN) TAB PO SCH ×2 (09:03→21:23)
[2018-11-13] MEDS: CLOPIDOGREL 75 MG (PLAVIX) TABLET PO SCH (09:03)
[2018-11-13] MEDS: OXYBUTYNIN (DITROPAN) 5 MG TAB PO SCH ×2 (09:03→21:22)
[2018-11-13] MEDS: BISACODYL 10 MG SUPP (DULCOLAX) PR SCH ×2 (09:04→21:27)
[2018-11-13] MEDS: DOCUSATE SODIUM 100 MG (COLACE) CAP PO SCH ×2 (09:05→21:26)
[2018-11-13] MEDS: SENNA W/DOCUSATE (SENOKOT S) TABLET PO SCH ×2 (09:05→21:27)
[2018-11-13] MEDS: POLYETHYLENE GLYCOL 17 GM (MIRALAX) PACK PO SCH ×2 (09:05→21:27)
--- NOTE | 2018-11-13 09:55 | Physical Therapy Daily Note ---
PT Daily Note-Current Subjective Pt laying Supine in bed upon arrival. Pt reluctantly agrees to PT stating her pain is 10/10 and pt is nauseated. Pain Numeric Pain Scale: 10-Worst Possible Pain Location Body Site: Back Pain Description: Ache, Dull, Tightness Mental Status Patient Orientation: Person, Place, Situation Attachments: Other-See Comments (Back brace) Transfers Therapy Code Descriptions/Definitions Functional [place] Measure: 0=Not Assessed/NA 4=Minimal Assistance 1=Total Assistance 5=Supervision or Setup 2=Maximal Assistance 6=Modified [place] 3=Moderate Assistance 7=Complete [place] Therapy Quality Codes: 6 Independent with activity with or without an assistive device 5 Patient requires set up or clean up by helper. Patient completes activity by themselves 4 Supervision or touching assist (CGA). [place] provide cues , steadying assist 3 The helper provides less than half the effort to complete the activity 2 The helper provides more than half the effort to complete the activity 1 Dependent. The helper does all the effort to complete an activity 7 Patient refused to complete or attempt activity 9 The patient did not perform the activity before the current illness or injury 88 Not attempted due to Medical conditions or safety concerns Rollin Exercises Supine Ex: Ankle pumps, Quad Set, Glut sets, Heel Slides, Hip abd/add Supine Reps: 15 (2 sets) Treatments Pt reports pain & nausea immediately upon arrival, Nurse is advised. Nurse gives pain med during tx. Pt completes limited tx of Supine EX in bed due to pain. PARTS RUNNER, pt & sp discuss pt education items including pain management and how movement during Therapy tx will improve pain over time. Dr Brito checks on pt during tx. Nursing arrives at end of tx for EKG. Pt resting Supine in bed at end of tx awaiting EKG. Pt has all needs met, call light next to pt. Assessment Current Status: Poor Progress Pt focuses on pain and nausea during tx. This limits what pt is willing to participate in during tx. PT Short Term Goals Short Term Goals Time Frame: Nov 16, 2018 Transfers (B,C,W/C) (FIM): 3 Gait (FIM): 2 Gait Distance Comment: 50' Gait Level of Assist: 4 Gait Assistive Device: FWW PT [facility] Goals [facility] Goals PT Pipe [place] Goals Time Frame: Nov 30, 2018 Transfers (B,C,W/C) (FIM): 4 Sit to Lying (QC): 3 Lying-Sitting on Side/Bed(QC): 3 Sit to Stand (QC): 4 Rollin Roll Left to Right (QC): 3 Chair/Ufs-nv-Niyoe Xfer(QC): 4 Car Transfer (QC): 3 Gait (FIM): 4 Distance: 150' Walk 10 feet (QC): 4 Walk 10ft-Uneven Surface(QC): 4 Walk 50ft with 2 Turns (QC): 4 Walk 150 ft (QC): 4 Gait Level of Assist: 4 Gait Assistive Device: FWW Stairs (FIM): 2 # of Steps: 4 1 Step (curb) (QC): 4 4 Steps (QC): 4 Stairs Level Of Assist: 4 PT Plan Problem List Problem List: Activity Tolerance, Functional Strength, Safety, Balance, Gait, Transfer, Bed Mobility Treatment/Plan Treatment Plan: Continue Plan of Care Treatment Plan: Bed Mobility, Concurrent Therapy, Education, Functional Activity Desiree, Functional Strength, Group Therapy, Gait, Safety, Therapeutic Exercise, Transfers Treatment Duration: Nov 30, 2018 Frequency: At least 5 of 7 days/Wk (IRF) Estimated Hrs Per Day: 1.5 hours per day Patient and/or Family Agrees t: Yes Safety Risks/Education Patient Education: Correct Positioning, Disease Process, Safety Issues Teaching Recipient: Patient, Significant Other Teaching Methods: Discussion Response to Teaching: Verbalize Understanding Time/GCodes Time In: 850 Time Out: 950 Total Billed Treatment Time: 60 Total Billed Treatment 1, FA x2 (30m) & EX x2 (30m) MARCI KIRK PTA Nov 13, 2018 09:55
--- NOTE | 2018-11-13 10:00 | NUR ---
STATES FEELING BETTER TODAY. IN BETTER SPIRITS AND LESS KNEE PAIN. STATES "HEART RATE WENT UP AND DOWN DURING THERAPY YESTERDAY AND I GOT SWEATY". DR. FELICIANO AWARE AND STARTED ON TELEMETRY. EKG DONE. FAN BROUGHT TO ROOM PER PATIENT REQUEST. VISITING. COMPLAIN PAIN NOT CONTROLLED AND OXYCONTIN INCREASED.
--- NOTE | 2018-11-13 10:09 | Progress Note - Hospitalist ---
[facility] 11/13/18 1009: Progress Note Ms Bahena had no acute events overnight. She describes intermittnet bouts of tachycardia and bradycardia yesterday during therapy Adding ECG and 24 hr Telemetry monitoring; discussed symptoms can be 2/2 anxiety which she has been feeling since arrival Shorten pain med interval from BID to Q6H KELLE FELICIANO DO 11/13/182054: Supervisory-Addendum Brief Verification & Attestation Participated in pt care: history, MDM, physical Personally performed: exam, history, MDM, supervision of care Care discussed with: Medical Student Procedures: n/a Results interpretation: Verified all documentation Verification and Attestation of Medical Student E/M Service A medical student performed and documented this service in my presence. I reviewed and verified all information documented by the medical student and made modifications to such information, when appropriate. I personally performed the physical exam and medical decision making. Kelle Feliciano, Nov 13, 2018,20:55 [facility] Nov 13, 2018 10:09 KELLE FELICIANO DO Nov 13, 2018 20:55
[2018-11-13] MEDS: hydrOXYzine (VISTARIL/ATARAX) 25 MG capsule/tablet PO PRN (10:15)
--- NOTE | 2018-11-13 13:46 | Occupational Ther Daily Note ---
OT Current Status-Daily Note Subjective Pt laying in bed at start of OT tx, agreed to session focusing on ADLs. Pt did not report any pain this session. Mental Status/Objective Patient Orientation: Normal For Age Therapy Code Descriptions/Definitions Functional [place] Measure: 0=Not Assessed/NA 4=Minimal Assistance 1=Total Assistance 5=Supervision or Setup 2=Maximal Assistance 6=Modified [place] 3=Moderate Assistance 7=Complete [place] Attachments: Telemetry (portable telemetry), Other-See Comments (back brace) ADL-Treatment Therapy Code Descriptions/Definitions Functional [place] Measure: 0=Not Assessed/NA 4=Minimal Assistance 1=Total Assistance 5=Supervision or Setup 2=Maximal Assistance 6=Modified [place] 3=Moderate Assistance 7=Complete [place] Therapy Quality Codes: 6 Independent with activity with or without an assistive device 5 Patient requires set up or clean up by helper. Patient completes activity by themselves 4 Supervision or touching assist (CGA). [place] provide cues , steadying assist 3 The helper provides less than half the effort to complete the activity 2 The helper provides more than half the effort to complete the activity 1 Dependent. The helper does all the effort to complete an activity 7 Patient refused to complete or attempt activity 9 The patient did not perform the activity before the current illness or injury 88 Not attempted due to Medical conditions or safety concerns Eating (FIM): 7 Eating (QC): 6 Grooming (FIM): 5 (SBA standing at sink with RW. Pt washed hands, face, and brushed teeth standing approx 5 mins at sink. Pt finished doing brushing her hair seated.) Oral Hygiene (QC): 4 Upper Body (FIM): 4 (pt required assistance clasping bra clasp. Pt was able to don bra straps and pull overshirt without assistance.) Upper Body Dressing (QC): 3 Lower Body Dressing (FIM): 3 (pt completed 08/01. Pt required assistance using spray unit feeder to don 1 leg into underwear, and both socks onto sock aid. OT educated pt on using spray unit feeder to don pants/underwear and sock aid to bhavana socks.) Lower Body Dressing (QC): 3 Toileting (FIM): 5 (SBA for safety. pt completed 05/27) Toileting Hygiene (QC): 4 Transfers (B, C, W/C) (FIM): 5 (SBA for sit to/from stand, and sit to supi ne/supine to sit. Pt was able to bring both legs into and out of bed without assistance from OT.) Toilet/Commode Transfer (FIM): 4 Pt completed ADLs standing at sink approx 5 mins before getting fatigued requiring pt to sit down to finish task. Pt was able to wash hair, face, and hands at sink. She changed her clothes, and completed toileting during this tx. OT educated pt on using a spray unit feeder to don/doff pants & underpants and education on using a sock aid. Pt verbalized understanding of equipment and trialed each AE. Other Treatment Pt agreeable to ADL session this tx (see ADL section). At end of OT session, pt laying in bed call light in reach and needs met. Education OT Patient Education: Correct positioning, Energy conservation, Progress toward Goal/Update tx plan, Purpose of tx/functional activities, Transfer techniques, Use of adapted equipment Teaching Recipient: Patient Teaching Methods: Demonstration, Discussion Response to Teaching: Verbalize Understanding, Return Demonstration OT Short Term Goals Short Term Goals Time Frame: Nov 23, 2018 Grooming(FIM): 5 Bathing(FIM): 5 Bathing Location: L Arm, R Arm, L Upper Leg, R Upper Leg, L Lower Leg (including foot), R Lower Leg (including foot), Chest, Abdomen, Buttocks, Perineal Area Upper Body Dressing(FIM): 5 Lower Body Dressing(FIM): 5 Toileting(FIM): 5 Transfers (B,C,W/C) (FIM): 3 Toilet/Commode Transfer(FIM): 5 Shower Transfer(FIM): 5 1=Demonstrate adherence to instructed precautions during ADL tasks. 2=Patient will verbalize/demonstrate understanding of assistive devices/modifications for ADL. 3=Patient will improve strength/tolerance for activity to enable patient to perform ADL's. OT Snf Goals Snf Goals Time Frame: Dec 07, 2018 Eating (FIM): 7 Eating (QC): 6 Groomin Oral Hygiene (QC): 6 Bathing(FIM): 6 Bathing Location: L Arm, R Arm, L Upper Leg, R Upper Leg, L Lower Leg (including foot), R Lower Leg (including foot), Chest, Abdomen, Buttocks, Perineal Area Shower/Bathe Self (QC): 6 Upper Body Dressing(FIM): 6 Upper Body Dressing (QC): 6 Lower Body Dressing(FIM): 6 Lower Body Dressing (QC): 6 On/Off Footwear (QC): 6 Toileting(FIM): 6 Toileting Hygiene (QC): 6 Transfers (B,C,W/C) (FIM): 6 Toilet/Commode Transfer(FIM): 6 Toilet/Commode Transfer (QC): 6 Shower Transfer(FIM): 6 1=Demonstrate adherence to instructed precautions during ADL tasks. 2=Patient will verbalize/demonstrate understanding of assistive devices/modifications for ADL. 3=Patient will improve strength/tolerance for activity to enable patient to perform ADL's. OT Education/Plan Problem List/Assessment Assessment: Decreased Activ Tolerance, Decreased UE Strength, Impaired I ADL's, Impaired Self-Care Skills, Restricted Funct UE ROM Discharge Recommendations Plan/Recommendations: Continue POC Treatment Plan/Plan of Care Treatment,Training & Education: Yes Patient would benefit from OT for education, treatment and training to promote independence in ADL's, mobility, safety and/or upper extremity function for ADL's. Plan of Care: ADL Retraining, Caregiver Training, Functional Mobility, Group Exercise/Act as Ind, UE Funct Exercise/Act Treatment Duration: Nov 12, 2018 Frequency: At least 5 of 7 days/Wk (IRF) Estimated Hrs Per Day: 1 hour per day (60-90 min) Agreement: Yes Rehab Potential: Fair Time/GCodes Start Time: 12:30 Stop Time: 13:15 Total Time Billed (hr/min): 45 Billed Treatment Time ADL 3 unit, 45 min DASH GAMBOA OT Nov 13, 2018 13:46
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
--- NOTE | 2018-11-13 14:00 | NUR ---
[facility] HERE TO VISIT WITH PATIENT SHE REQUESTED.
--- NOTE | 2018-11-13 14:26 | Physical Therapy Daily Note ---
PT Daily Note-Current Subjective Pt laying Supine in bed upon arrival. Pt refuses at first due to pain, rating 10/10. RPG PROGRAMMER notifies Nurse but it is not time for pain med. Hot Kettle Tender arrives to visit with pt. Pain Numeric Pain Scale: 10-Worst Possible Pain Location Body Site: Back Pain Description: Ache, Stabbing, Tightness Comment: Constant ache with intermittent stabbing pain with movement Mental Status Patient Orientation: Person, Place Transfers Therapy Code Descriptions/Definitions Functional [place] Measure: 0=Not Assessed/NA 4=Minimal Assistance 1=Total Assistance 5=Supervision or Setup 2=Maximal Assistance 6=Modified [place] 3=Moderate Assistance 7=Complete [place] Therapy Quality Codes: 6 Independent with activity with or without an assistive device 5 Patient requires set up or clean up by helper. Patient completes activity by themselves 4 Supervision or touching assist (CGA). [place] provide cues , steadying assist 3 The helper provides less than half the effort to complete the activity 2 The helper provides more than half the effort to complete the activity 1 Dependent. The helper does all the effort to complete an activity 7 Patient refused to complete or attempt activity 9 The patient did not perform the activity before the current illness or injury 88 Not attempted due to Medical conditions or safety concerns Treatments RPG PROGRAMMER notifies Nurse of pt wanting pain med and to visit with Hot Kettle Tender. Pain med not due at this time. RPG PROGRAMMER tries to give pt education over benefits of Therapy and continuing to move. Hot Kettle Tender arrives and pt asks RPG PROGRAMMER to leave at end of tx. Pt has all needs met. Assessment Current Status: Poor Progress Pt is more interested/focused on pain med and rough rice tender coming by to visit then tx. RPG PROGRAMMER tries to encourage pt but to no avail. PT Short Term Goals Short Term Goals Time Frame: Nov 16, 2018 Transfers (B,C,W/C) (FIM): 3 Gait (FIM): 2 Gait Distance Comment: 50' Gait Level of Assist: 4 Gait Assistive Device: FWW PT Detention Goals Inbound Call Center Agent Goals PT Inbound Call Center Agent Goals Time Frame: Nov 30, 2018 Transfers (B,C,W/C) (FIM): 4 Sit to Lying (QC): 3 Lying-Sitting on Side/Bed(QC): 3 Sit to Stand (QC): 4 Rollin Roll Left to Right (QC): 3 Chair/Fbo-yk-Kypii Xfer(QC): 4 Car Transfer (QC): 3 Gait (FIM): 4 Distance: 150' Walk 10 feet (QC): 4 Walk 10ft-Uneven Surface(QC): 4 Walk 50ft with 2 Turns (QC): 4 Walk 150 ft (QC): 4 Gait Level of Assist: 4 Gait Assistive Device: FWW Stairs (FIM): 2 # of Steps: 4 1 Step (curb) (QC): 4 4 Steps (QC): 4 Stairs Level Of Assist: 4 PT Plan Problem List Problem List: Activity Tolerance, Functional Strength, Safety, Balance, Gait, Transfer, Bed Mobility Treatment/Plan Treatment Plan: Continue Plan of Care Treatment Plan: Bed Mobility, Concurrent Therapy, Education, Functional Activity Desiree, Functional Strength, Group Therapy, Gait, Safety, Therapeutic Exercise, Transfers Treatment Duration: Nov 30, 2018 Frequency: At least 5 of 7 days/Wk (IRF) Estimated Hrs Per Day: 1.5 hours per day Patient and/or Family Agrees t: Yes Safety Risks/Education Patient Education: Correct Positioning, Disease Process, Safety Issues Teaching Recipient: Patient Teaching Methods: Discussion Response to Teaching: Reinforcement Needed Time/GCodes Time In: 1400 Time Out: 1430 Total Billed Treatment Time: 30 Total Billed Treatment 1, FA x2 (30m) MARCI KIRK RPG PROGRAMMER Nov 13, 2018 14:26
[2018-11-13 17:12] VITALS: BP 118/74
--- NOTE | 2018-11-13 19:15 | NUR ---
bedside report received from NOEMÍ NOE, assume care of pt
[2018-11-13] MEDS: MELATONIN 3 MG TABLET PO PRN (21:22)
--- NOTE | 2018-11-13 21:23 | NUR ---
c/o pain level 9/10 on numeric scale, oxyir 5mg po given, pt refused Colace, miralax, Senokot & Dulcolax supp
--- NOTE | 2018-11-13 21:25 | NUR ---
assessments & interventions completed, see assessments & interventions
--- NOTE | 2018-11-13 22:00 | NUR ---
resting quietly in bed, pain level 0/10 on flacc scale
--- NOTE | 2018-11-14 03:53 | NUR ---
c/o pain level 10/10 on numeric scale, oxyir 5mg po given
--- NOTE | 2018-11-14 04:32 | NUR ---
resting quietly in bed, pain level 0/10 on flacc scale
[2018-11-14 05:24] VITALS: BP 100/63
--- NOTE | 2018-11-14 07:26 | NUR ---
bedside report given to CHENTE NOE
[2018-11-14] MEDS: ACETAMINOPHEN 500 MG TAB (TYLENOL) PO PRN (07:42)
--- NOTE | 2018-11-14 08:40 | Occupational Ther Daily Note ---
OT Current Status-Daily Note Subjective Pt reports her pain is "really bad" this morning in her back, and also has had a tylenol for her headache. Pt agreed to OT tx this morning focusing on BUE in the therapy gym, pt pleasantly completed all tasks OT asked Mental Status/Objective Patient Orientation: Normal For Age Therapy Code Descriptions/Definitions Functional [place] Measure: 0=Not Assessed/NA 4=Minimal Assistance 1=Total Assistance 5=Supervision or Setup 2=Maximal Assistance 6=Modified [place] 3=Moderate Assistance 7=Complete [place] Attachments: Telemetry (portable) ADL-Treatment Therapy Code Descriptions/Definitions Functional [place] Measure: 0=Not Assessed/NA 4=Minimal Assistance 1=Total Assistance 5=Supervision or Setup 2=Maximal Assistance 6=Modified [place] 3=Moderate Assistance 7=Complete [place] Therapy Quality Codes: 6 Independent with activity with or without an assistive device 5 Patient requires set up or clean up by helper. Patient completes activity by themselves 4 Supervision or touching assist (CGA). [place] provide cues , steadying assist 3 The helper provides less than half the effort to complete the activity 2 The helper provides more than half the effort to complete the activity 1 Dependent. The helper does all the effort to complete an activity 7 Patient refused to complete or attempt activity 9 The patient did not perform the activity before the current illness or injury 88 Not attempted due to Medical conditions or safety concerns Grooming (FIM): 6 Lower Body Dressing (FIM): 5 (Pt donned bilateral socks using sock aid and verbal cues from OT.) On/Off Footwear (QC): 4 Toileting (FIM): 3 (2/3 completed. Pt required assistance with hygiene after BM, she stated her helps her with this at home due to her not being able to reach.) Toileting Hygiene (QC): 3 Transfers (B, C, W/C) (FIM): 4 (CGA for sit to stands using RW. Pt able to move legs in/out of bed with SBA) Toilet/Commode Transfer (FIM): 4 (CGA sit to stand off of toilet. ) Toilet Transfer (QC): 4 Pt donned back brace without assistance from OT prior to transferring to w/c. Other Treatment Pt completed ADLs in her room, taken to therapy gym in w/c. In order to increase UE strengthening and endurance in order to increase independence in functional activities, the following were complete: Clothes pins: X17 graded clothes pins (ranging 1-5lbs) alternating hands with 2lb wrist cuffs. Pt completed 2 sets of activity averaging 2 minutes per trial. Pegboard: X100 pegs placed/removed in 18:55 minutes, pt was able to place 35 with 2lb wrist cuffs, stated she was having difficulty so OT took wrist cuffs off for remainder of task Pt returned to room and transferred to bed, post OT session, pt laying in bed call light in reach and needs met. Education OT Patient Education: Correct positioning, Energy conservation, Progress toward Goal/Update tx plan, Purpose of tx/functional activities, Transfer techniques, Use of adapted equipment Teaching Recipient: Patient Teaching Methods: Demonstration, Discussion Response to Teaching: Verbalize Understanding, Return Demonstration OT Short Term Goals Short Term Goals Time Frame: Nov 23, 2018 Grooming(FIM): 5 Bathing(FIM): 5 Bathing Location: L Arm, R Arm, L Upper Leg, R Upper Leg, L Lower Leg (including foot), R Lower Leg (including foot), Chest, Abdomen, Buttocks, Perineal Area Upper Body Dressing(FIM): 5 Lower Body Dressing(FIM): 5 Toileting(FIM): 5 Transfers (B,C,W/C) (FIM): 3 Toilet/Commode Transfer(FIM): 5 Shower Transfer(FIM): 5 1=Demonstrate adherence to instructed precautions during ADL tasks. 2=Patient will verbalize/demonstrate understanding of assistive devices/modifications for ADL. 3=Patient will improve strength/tolerance for activity to enable patient to perform ADL's. OT Custodial Goals Custodial Goals Time Frame: Dec 07, 2018 Eating (FIM): 7 Eating (QC): 6 Groomin Oral Hygiene (QC): 6 Bathing(FIM): 6 Bathing Location: L Arm, R Arm, L Upper Leg, R Upper Leg, L Lower Leg (including foot), R Lower Leg (including foot), Chest, Abdomen, Buttocks, Perineal Area Shower/Bathe Self (QC): 6 Upper Body Dressing(FIM): 6 Upper Body Dressing (QC): 6 Lower Body Dressing(FIM): 6 Lower Body Dressing (QC): 6 On/Off Footwear (QC): 6 Toileting(FIM): 6 Toileting Hygiene (QC): 6 Transfers (B,C,W/C) (FIM): 6 Toilet/Commode Transfer(FIM): 6 Toilet/Commode Transfer (QC): 6 Shower Transfer(FIM): 6 1=Demonstrate adherence to instructed precautions during ADL tasks. 2=Patient will verbalize/demonstrate understanding of assistive devices/modifications for ADL. 3=Patient will improve strength/tolerance for activity to enable patient to perform ADL's. OT Education/Plan Problem List/Assessment Assessment: Decreased Activ Tolerance, Decreased UE Strength, Impaired Funct Balance, Impaired I ADL's, Impaired Self-Care Skills, Restricted Funct UE ROM Discharge Recommendations Plan/Recommendations: Continue POC Treatment Plan/Plan of Care Patient would benefit from OT for education, treatment and training to promote independence in ADL's, mobility, safety and/or upper extremity function for ADL's. Plan of Care: ADL Retraining, Caregiver Training, Functional Mobility, Group Exercise/Act as Ind, UE Funct Exercise/Act Treatment Duration: Nov 12, 2018 Frequency: At least 5 of 7 days/Wk (IRF) Estimated Hrs Per Day: 1 hour per day (60-90 min) Agreement: Yes Rehab Potential: Fair Time/GCodes Start Time: 08:00 Stop Time: 09:00 Total Time Billed (hr/min): 60 Billed Treatment Time FA 3 units X 45 min ADL 1 unit X 15 min DASH GAMBOA OT Nov 14, 2018 08:40
--- NOTE | 2018-11-14 08:41 | PM&R Progress Note ---
Subjective HPI/CC On Admission Date Seen by Provider: Nov 14, 2018 Time Seen by Provider: 08:45 Chief complaint: Spinal fusion with slow recovery and debility History of present illness: This is a 77-year-old white female patient of Dr. Kassi Ferguson in [facility] who presents to inpatient rehab after undergoing an uncomplicated spinal fusion surgery by Dr. Kim on 11/07/2018 but had just such slow recovery she was required to go to inpatient rehab for intensive and structured therapy program prior to returning home with her . I have reviewed and restarted all of her home medications except for chlorthalidone due to high risk for hyponatremia and postop state. We did r eplace fentanyl patch since it had fallen off and it was taped back to the skin yesterday. She has not had a bowel movement so we will maintain bowel regimen. Overall she is been slow to walk and regain any ADL independence. Check meds and labs. Subjective/Events-last exam No more tachycardia episodes per pt Holter monitor will be DC since it has been 24 hrs and no tachycardia episodes noted Reviewed EKG Anxiety likely is the cause of the Tachycardia episodes Klonopin was given before PT and that really helped her Will discuss on Monday regarding her DC plan Progressing nicely Conferred with RN Reviewed therapy notes Working with PT well Review of Systems General: Fatigue Musculoskeletal: back pain Objective Exam Vital Signs Vital Signs Date Time Temp Pulse Resp B/P (MAP) Pulse Ox O2 Delivery O2 Flow Rate FiO2 11/14/18 17:26 98.5 75 18 130/83 (99) 98 Room Air Capillary Refill : General Appearance: No Apparent Distress, WD/WN, Chronically ill, Obese HEENT: PERRL/EOMI, Normal ENT Inspection, Pharynx Normal, Moist Mucous Membranes Neck: Full Range of Motion, Normal Inspection, Non Tender, Supple Respiratory: Chest Non Tender, Lungs Clear, Normal Breath Sounds, No Accessory Muscle Use, No Respiratory Distress Cardiovascular: Regular Rate, Rhythm, No Edema, No Gallop, No JVD, No Murmur Gastrointestinal: Normal Bowel Sounds, No Organomegaly, No Pulsatile Mass, Non Tender, Soft Back: Decreased Range of Motion, Muscle Spasm, Vertebral Tenderness Extremity: Normal Capillary Refill, Normal Inspection, Normal Range of Motion, Non Tender, No Calf Tenderness, No Pedal Edema Neurologic/Psychiatric: Alert, Oriented x3, No Motor/Sensory Deficits, Normal Mood/Affect, hooker off II-XII Norm as Tested, Motor Weakness (generalized lower extremities) Skin: Normal Color, Warm/Dry Lymphatic: No Adenopathy Results/Procedures Lab Patient resulted labs reviewed. FIM Transfers Therapy Code Descriptions/Definitions Functional [place] Measure: 0=Not Assessed/NA 4=Minimal Assistance 1=Total Assistance 5=Supervision or Setup 2=Maximal Assistance 6=Modified [place] 3=Moderate Assistance 7=Complete [place] Therapy Quality Codes: 6 Independent with activity with or without an assistive device 5 Patient requires set up or clean up by helper. Patient completes activity by themselves 4 Supervision or touching assist (CGA). [place] provide cues , steadying assist 3 The helper provides less than half the effort to complete the activity 2 The helper provides more than half the effort to complete the activity 1 Dependent. The helper does all the effort to complete an activity 7 Patient refused to complete or attempt activity 9 The patient did not perform the activity before the current illness or injury 88 Not attempted due to Medical conditions or safety concerns Transfers (B, C, W/C) (FIM): 5 (SBA for sit to/from stand, and sit to supine/supine to sit. Pt was able to bring both legs into and out of bed without assistance from OT.) Scootin Rollin Roll Left to Right (QC): 2 Supine to/from Sit: 5 Sit to/from Stand: 5 Sit to Lying (QC): 2 Sit to Stand (QC): 3 Chair/Ovm-xy-Sehdd Xfer(QC): 3 Bed to/from Chair: 3 Car Transfer (QC): 2 Gait Training Does the Patient Walk?: Yes Gait (FIM): 4 Distance (FIM): 3=150 ft (150x3,25) Distance: 15 Gait Level of Assist: 4 Gait Persons Needed: 1 Gait Assistive Device: FWW Wheelchair Training Does the Pt Use a Wheelchair?: Yes Wheelchair (FIM): 1 Type of Wheelchair: Manual Mental Status/Objective Comprehension: 7 Expression: 7 Social Interaction: 7 Problem Solvin Memory: 6 ADL-Treatment Feedin Eating (QC): 6 Groomin (SBA standing at sink with RW. Pt washed hands, face, and brushed teeth standing approx 5 mins at sink. Pt finished doing brushing her hair seated.) Oral Hygiene (QC): 4 Bathin (cuing for back precautions ) Bathing Location: L Arm, R Arm, L Upper Leg, R Upper Leg, L Lower Leg (inc luding foot), R Lower Leg (including foot), Chest, Abdomen, Buttocks, Perineal Area Shower/Bathe Self (QC): 2 Upper Extremity Dressin (pt required assistance clasping bra clasp. Pt was able to don bra straps and pull overshirt without assistance.) Upper Body Dressing (QC): 3 Lower Extremity Dressin (pt completed 08/01. Pt required assistance using power truck driver to don 1 leg into underwear, and both socks onto sock aid. OT educated pt on using power truck driver to don pants/underwear and sock aid to bhavana socks.) Lower Body Dressing (QC): 3 On/Off Footwear (QC): 1 Toiletin (SBA for safety. pt completed 05/27) Toileting Hygiene (QC): 4 Toilet/Commode Transfer: 4 Toilet Transfer (QC): 4 (use of RW ) Shower: 4 (use of GB, shower bench. CGA for safety. balance. ) Assessment/Plan Assessment and Plan Assess & Plan/Chief Complaint Assessment: Status post spinal fusion uncomplicated but slow recovery with debility Hypertension Rheumatoid arthritis GERD Irritable bowel syndrome Hyperlipidemia Overactive bladder Antiplatelet agent chronic Emotional problems/difficult coping Plan: Restarted Plavix Monday Pain control with fentanyl patch Check labs prn Bowel regimen to maintain Inpatient rehab therapy protocol Much improved today Increase pain meds by decreasing hours in between and that seems to be helping (1) S/P spinal fusion Status: Acute (2) Postoperative anemia Status: Acute (3) Rheumatoid arthritis Status: Chronic Qualifiers: Rheumatoid arthritis location: unspecified site Rheumatoid factor presence: unspecified presence Qualified Codes: M06.9 - Rheumatoid arthritis, unsp ecified (4) Anxiety Status: Chronic (5) Hyperlipemia Status: Chronic Qualifiers: Hyperlipidemia type: mixed hyperlipidemia Qualified Codes: E78.2 - Mixed hyperlipidemia (6) GERD (gastroesophageal reflux disease) Status: Chronic Qualifiers: Esophagitis presence: without esophagitis Qualified Codes: K21.9 - Gastro-esophageal reflux disease without esophagitis (7) Debility Status: Acute (8) Hypertension Status: Chronic Qualifiers: Hypertension type: essential hypertension Qualified Codes: I10 - Essential (primary) hypertension (9) Chronic pain Status: Chronic Qualifiers: Chronic pain type: chronic pain syndrome Qualified Codes: G89.4 - Chronic pain syndrome (10) Overactive bladder Status: Chronic (11) Acute depression Status: Acute KEV FELICIANO DO Nov 14, 2018 08:41
[2018-11-14] MEDS: DOCUSATE SODIUM 100 MG (COLACE) CAP PO SCH ×2 (09:00→20:20)
[2018-11-14 10:00] VITALS: BP 92/64
[2018-11-14] MEDS: SENNA W/DOCUSATE (SENOKOT S) TABLET PO SCH ×2 (10:00→20:21)
[2018-11-14] MEDS: LOSARTAN 100 MG (COZAAR) TABLET PO SCH (10:00)
[2018-11-14] MEDS: BISACODYL 10 MG SUPP (DULCOLAX) PR SCH ×2 (10:00→20:21)
[2018-11-14] MEDS: POLYETHYLENE GLYCOL 17 GM (MIRALAX) PACK PO SCH ×2 (10:00→20:21)
[2018-11-14] MEDS: OXYBUTYNIN (DITROPAN) 5 MG TAB PO SCH ×2 (10:01→20:20)
[2018-11-14] MEDS: clonazePAM 1 MG (KlonoPIN) TAB PO PRN ×2 (10:01→23:40)
[2018-11-14] MEDS: CLOPIDOGREL 75 MG (PLAVIX) TABLET PO SCH (10:01)
[2018-11-14] MEDS: GABAPENTIN 600 MG (NEURONTIN) TAB PO SCH ×2 (10:02→20:20)
[2018-11-14] MEDS: ATORVASTATIN 10 MG (LIPITOR) TABLET PO SCH (10:02)
--- NOTE | 2018-11-14 10:20 | Progress Note - Hospitalist ---
[facility] 11/14/18 1020: Progress Note Ms Bahena is in better spirits today She do not have any repeat episodes of tachycardia or palpitations despite full day of therapy All readings are reassuring Pt agrees her anxiety plays a large role Will obtain 1 strip today during exercise before d/c of tele monitor KELLE FELICIANO DO 11/14/18 2012: Supervisory-Addendum Brief Verification & Attestation Participated in pt care: history, MDM, physical Personally performed: exam, history, MDM, supervision of care Care discussed with: Medical Student Procedures: n/a Results interpretation: Verified all documentation Verification and Attestation of Medical Student E/M Service A medical student performed and documented this service in my presence. I reviewed and verified all information documented by the medical student and made modifications to such information, when appropriate. I personally performed the physical exam and medical decision making. Kelle Feliciano, Nov 14, 2018,20:12 [facility] Nov 14, 2018 10:20 KELLE FELICIANO DO Nov 14, 2018 20:12
--- NOTE | 2018-11-14 11:24 | Physical Therapy Daily Note ---
PT Daily Note-Current Subjective Pt laying Supine in bed upon arrival. Pt agrees to PT. Pain Numeric Pain Scale: 9 Location: Incisional Location Body Site: Back Pain Description: Ache, Tightness Mental Status Patient Orientation: Person, Place Attachments: Other-See Comments (Back Brace) Transfers Therapy Code Descriptions/Definitions Functional [place] Measure: 0=Not Assessed/NA 4=Minimal Assistance 1=Total Assistance 5=Supervision or Setup 2=Maximal Assistance 6=Modified [place] 3=Moderate Assistance 7=Complete [place] Therapy Quality Codes: 6 Independent with activity with or without an assistive device 5 Patient requires set up or clean up by helper. Patient completes activity by themselves 4 Supervision or touching assist (CGA). [place] provide cues , steadying as sist 3 The helper provides less than half the effort to complete the activity 2 The helper provides more than half the effort to complete the activity 1 Dependent. The helper does all the effort to complete an activity 7 Patient refused to complete or attempt activity 9 The patient did not perform the activity before the current illness or injury 88 Not attempted due to Medical conditions or safety concerns Scootin Rollin Supine to/from Sit: 5 Sit to/from Stand: 5 Sit to Lying (QC): 5 Sit to Stand (QC): 5 Weight Bearing Full Weight Bearing Full Weight Bearing Gait Training Does the Patient Walk?: Yes Gait (FIM): 5 Distance (FIM): 3=150 ft Distance: 150' Walk 10 feet (QC): 5 Walk 50 ft with 2 Turns(QC): 5 Walk 150 ft (QC): 5 Gait Level of Assist: 5 Gait Persons Needed: 1 Gait Assistive Device: FWW Pt is limited by fatigue & pain. Stair Training Stair Training: Handrails/: 2 handrails #of Steps: 8 1 Step (curb) (QC): 5 4 Steps (QC): 5 Stairs: Pattern: Step to Level of Assist: 5 Exercises Seated Therapy Exercises: Ankle pumps, Long arc quads, Kicking activity Seated Reps: 20 Treatments Pt transfers from bed to standing then ambulates in hallway. Pt uses NuStep for 15m at WL 5 followed by short RB. Pt ambulates in hallway before returning to room. Pt resting at EOB then completes Seated EX before needing to rest. Pt transfers to Supine in bed and discusses pain management and want to D/C as soon as ARU staff feels she is able. Pt resting Supine with all needs met, call light in hand. Assessment Current Status: Good Progress Pt is only limited but fatigue and pain at this time. PT Short Term Goals Short Term Goals Time Frame: Nov 16, 2018 Transfers (B,C,W/C) (FIM): 3 Gait (FIM): 2 Gait Distance Comment: 50' Gait Level of Assist: 4 Gait Assistive Device: FWW PT Gambling Floor Supervisor Goals Chcf Goals PT Chcf Goals Time Frame: Nov 30, 2018 Transfers (B,C,W/C) (FIM): 4 Sit to Lying (QC): 3 Lying-Sitting on Side/Bed(QC): 3 Sit to Stand (QC): 4 Rollin Roll Left to Right (QC): 3 Chair/Rgh-ko-Uangt Xfer(QC): 4 Car Transfer (QC): 3 Gait (FIM): 4 Distance: 150' Walk 10 feet (QC): 4 Walk 10ft-Uneven Surface(QC): 4 Walk 50ft with 2 Turns (QC): 4 Walk 150 ft (QC): 4 Gait Level of Assist: 4 Gait Assistive Device: FWW Stairs (FIM): 2 # of Steps: 4 1 Step (curb) (QC): 4 4 Steps (QC): 4 Stairs Level Of Assist: 4 PT Plan Problem List Problem List: Activity Tolerance, Gait Treatment/Plan Treatment Plan: Continue Plan of Care Treatment Plan: Bed Mobility, Concurrent Therapy, Education, Functional Activity Desiree, Functional Strength, Group Therapy, Gait, Safety, Therapeutic Exercise, Transfers Treatment Duration: Nov 30, 2018 Frequency: At least 5 of 7 days/Wk (IRF) Estimated Hrs Per Day: 1.5 hours per day Patient and/or Family Agrees t: Yes Safety Risks/Education Patient Education: Gait Training, Transfer Techniques, Correct Positioning, Safety Issues Teaching Recipient: Patient Teaching Methods: Discussion Response to Teaching: Verbalize Understanding Time/GCodes Time In: 1015 Time Out: 1115 Total Billed Treatment Time: 60 Total Billed Treatment 1, GT (15m), EX x2 (30m) & FA (15m) MARCI KIRK ACCOUNTANT COST Nov 14, 2018 11:24
--- NOTE | 2018-11-14 14:55 | Therapy Group Daily Note ---
Therapy Daily Group Note Patient Education Topic Other List Below (Environmental Signs of Safety) Exercises LE Seated Exercise, UE Exercise Session Ratio (pt:therapist): 4:1 Goal of Session: Education on ARU Expectations, Memory Strategies, UE/LE Strengthing Goal Met for this Session: Yes Pt Benefit of Group: Contributions to Others, F/U Use of Strategies @Home, Increased Functional Safety, Increased Functional Strength, Improved Cognition, Recognition of Peers, Socialization Other/Notes Pt propels to PT/OT Group via W/C at [facility]. Group consisted of Introductions (Name, Where you live & Biggest Pet Peeve), Socialization, UE & LE Seated Exercise, and Identifying & Explaining Safety Signs we see daily in the form of a seated activity. Pt actively participates in Group by completing exercises and giving examples of safety signs and what they mean. Pt returns to room at end of Group to rest with all needs met, call light next to pt. Start Time: 13:00 Stop Time: 14:00 Total Billed Treatment Time: 60 Total Billed Treatment 1, GRP MARCI KIRK CHIEF STATION ENGINEER Nov 14, 2018 14:55
--- NOTE | 2018-11-14 15:43 | NUR ---
FARMWORKER MACHINE met with patient to review team conference summary. Nursing and therapy report that patient is limited by pain; however patient is performing all therapy activities with min to standby assistance. Team has recommended patient's progress be rediscussed on to determine appropriate discharge date. Patient is agreeable to this. FARMWORKER MACHINE will continue to follow.
[2018-11-14 17:26] VITALS: BP 130/83
[2018-11-15] MEDS: MELATONIN 3 MG TABLET PO PRN ×2 (01:19→21:24)
[2018-11-15] MEDS: ACETAMINOPHEN 500 MG TAB (TYLENOL) PO PRN ×2 (01:19→23:26)
[2018-11-15 05:11] VITALS: BP 116/74
--- NOTE | 2018-11-15 08:24 | Progress Note - Hospitalist ---
[facility] 11/15/18 0824: Progress Note Ms Bahena had no acute events overnight Was awakened by cramping pain in the quadriceps, but was able to fall back asleep Is reassured by negative findings on heart monitoring Continue to assess and work toward dispo home KELLE FELICIANO DO 11/15/18 2015: Supervisory-Addendum Brief Verification & Attestation Participated in pt care: history, MDM, physical Personally performed: exam, history, MDM, supervision of care Care discussed with: Medical Student Procedures: n/a Results interpretation: Verified all documentation Verification and Attestation of Medical Student E/M Service A medical student performed and documented this service in my presence. I reviewed and verified all information documented by the medical student and made modifications to such information, when appropriate. I personally performed the physical exam and medical decision making. Kelle Feliciano, Nov 15, 2018,20:15 [facility] Nov 15, 2018 08:24 KELLE FELICIANO DO Nov 15, 2018 20:15
[2018-11-15] MEDS: OXYBUTYNIN (DITROPAN) 5 MG TAB PO SCH ×2 (08:37→21:24)
[2018-11-15] MEDS: ATORVASTATIN 10 MG (LIPITOR) TABLET PO SCH (08:37)
[2018-11-15] MEDS: GABAPENTIN 600 MG (NEURONTIN) TAB PO SCH ×2 (08:37→21:24)
[2018-11-15] MEDS: LOSARTAN 100 MG (COZAAR) TABLET PO SCH (08:37)
[2018-11-15] MEDS: CLOPIDOGREL 75 MG (PLAVIX) TABLET PO SCH (08:38)
--- NOTE | 2018-11-15 09:18 | PM&R Progress Note ---
Subjective HPI/CC On Admission Date Seen by Provider: Nov 15, 2018 Time Seen by Provider: 09:15 Chief complaint: Spinal fusion with slow recovery and debility History of present illness: This is a 77-year-old white female patient of Dr. Kassi Ferguson in [facility] who presents to inpatient rehab after undergoing an uncomplicated spinal fusion surgery by Dr. Kim on 11/07/2018 but had just such slow recovery she was required to go to inpatient rehab for intensive and structured therapy program prior to returning home with her . I have reviewed and restarted all of her home medications except for chlorthalidone due to high risk for hyponatremia and postop state. We did r eplace fentanyl patch since it had fallen off and it was taped back to the skin yesterday. She has not had a bowel movement so we will maintain bowel regimen. Overall she is been slow to walk and regain any ADL independence. Check meds and labs. Subjective/Events-last exam Pt very motivated and energetic today. Having bowel movements. Pain is pretty well controlled with the new changes I made to the pain medication in addition to the Fentanyl patch of 75. Muscle pain in the front of her thighs was reported today and I explained to her with PT she hadn't really walked around too much for a year and that would occur with muscle pain. Progressing nicely Conferred with RN Reviewed therapy notes Working with PT well Review of Systems General: Fatigue Musculoskeletal: back pain Objective Exam Vital Signs Vital Signs Date Time Temp Pulse Resp B/P (MAP) Pulse Ox O2 Delivery O2 Flow Rate FiO2 11/15/18 09:00 Room Air 11/15/18 05:11 99.2 69 20 116/74 (88) 96 Capillary Refill : General Appearance: No Apparent Distress, WD/WN, Chronically ill, Obese HEENT: PERRL/EOMI, Normal ENT Inspection, Pharynx Normal, Moist Mucous Membranes Neck: Full Range of Motion, Normal Inspection, Non Tender, Supple Respiratory: Chest Non Tender, Lungs Clear, Normal Breath Sounds, No Accessory Muscle Use, No Respiratory Distress Cardiovascular: Regular Rate, Rhythm, No Edema, No Gallop, No JVD, No Murmur Gastrointestinal: Normal Bowel Sounds, No Organomegaly, No Pulsatile Mass, Non Tender, Soft Back: Decreased Range of Motion, Muscle Spasm, Vertebral Tenderness Extremity: Normal Capillary Refill, Normal Inspection, Normal Range of Motion, Non Tender, No Calf Tenderness, No Pedal Edema Neurologic/Psychiatric: Alert, Oriented x3, No Motor/Sensory Deficits, Normal 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 FIM Transfers Therapy Code Descriptions/Definitions Functional [place] Measure: 0=Not Assessed/NA 4=Minimal Assistance 1=Total Assistance 5=Supervision or Setup 2=Maximal Assistance 6=Modified [place] 3=Moderate Assistance 7=Complete [place] Therapy Quality Codes: 6 Independent with activity with or without an assistive device 5 Patient requires set up or clean up by helper. Patient completes activity by themselves 4 Supervision or touching assist (CGA). [place] provide cues , steadying assist 3 The helper provides less than half the effort to complete the activity 2 The helper provides more than half the effort to complete the activity 1 Dependent. The helper does all the effort to complete an activity 7 Patient refused to complete or attempt activity 9 The patient did not perform the activity before the current illness or injury 88 Not attempted due to Medical conditions or safety concerns Transfers (B, C, W/C) (FIM): 4 (CGA for sit to stands using RW. Pt able to move legs in/out of bed with SBA) Scootin Rollin Roll Left to Right (QC): 2 Supine to/from Sit: 5 Sit to/from Stand: 5 Sit to Lying (QC): 5 Sit to Stand (QC): 5 Chair/Duh-sn-Yrzyc Xfer(QC): 3 Bed to/from Chair: 3 Car Transfer (QC): 2 Gait Training Does the Patient Walk?: Yes Gait (FIM): 5 Distance (FIM): 3=150 ft Distance: 150' Walk 10 feet (QC): 5 Walk 50 ft with 2 Turns(QC): 5 Walk 150 ft (QC): 5 Gait Level of Assist: 5 Gait Persons Needed: 1 Gait Assistive Device: FWW Wheelchair Training Does the Pt Use a Wheelchair?: Yes Wheelchair (FIM): 1 Type of Wheelchair: Manual Stair Training Stair Training: Handrails/: 2 handrails #of Steps: 8 1 Step (curb) (QC): 5 4 Steps (QC): 5 Stairs: Pattern: Step to Level of Assist: 5 Mental Status/Objective Comprehension: 7 Expression: 7 Social Interaction: 7 Problem Solvin Memory: 6 ADL-Treatment Feedin Eating (QC): 6 Groomin Oral Hygiene (QC): 4 Bathin (cuing for back precautions ) Bathing Location: L Arm, R Arm, L Upper Leg, R Upper Leg, L Lower Leg (including foot), R Lower Leg (including foot), Chest, Abdomen, Buttocks, Per ineal Area Shower/Bathe Self (QC): 2 Upper Extremity Dressin (pt required assistance clasping bra clasp. Pt was able to don bra straps and pull overshirt without assistance.) Upper Body Dressing (QC): 3 Lower Extremity Dressin (Pt donned bilateral socks using sock aid and verbal cues from OT.) Lower Body Dressing (QC): 3 On/Off Footwear (QC): 4 Toiletin (2/3 completed. Pt required assistance with hygiene after BM, she stated her helps her with this at home due to her not being able to reach.) Toileting Hygiene (QC): 3 Toilet/Commode Transfer: 4 (CGA sit to stand off of toilet. ) Toilet Transfer (QC): 4 Shower: 4 (use of GB, shower bench. CGA for safety. balance. ) Assessment/Plan Assessment and Plan Assess & Plan/Chief Complaint Assessment: Status post spinal fusion uncomplicated but slow recovery with debility Hypertension Rheumatoid arthritis GERD Irritable bowel syndrome Hyperlipidemia Overactive bladder Antiplatelet agent chronic Emotional problems/difficult coping Plan: Restarted Plavix Monday Pain control with fentanyl patch Check labs prn Bowel regimen to maintain Inpatient rehab therapy protocol Much improved today Increase pain meds by decreasing hours in between and that seems to be helping Progressing well (1) S/P spinal fusion Status: Acute (2) Postoperative anemia Status: Acute (3) Rheumatoid arthritis Status: Chronic Qualifiers: Rheumatoid arthritis location: unspecified site Rheumatoid factor presence: unspecified presence Qualified Codes: M06.9 - Rheumatoid arthritis, unspecified (4) Anxiety Status: Chronic (5) Hyperlipemia Status: Chronic Qualifiers: Hyperlipidemia type: mixed hyperlipidemia Qualified Codes: E78.2 - Mixed hyperlipidemia (6) GERD (gastroesophageal reflux disease) Status: Chronic Qualifiers: Esophagitis presence: without esophagitis Qualified Codes: K21.9 - Gastro- esophageal reflux disease without esophagitis (7) Debility Status: Acute (8) Hypertension Status: Chronic Qualifiers: Hypertension type: essential hypertension Qualified Codes: I10 - Essential (primary) hypertension (9) Chronic pain Status: Chronic Qualifiers: Chronic pain type: chronic pain syndrome Qualified Codes: G89.4 - Chronic pain syndrome (10) Overactive bladder Status: Chronic (11) Acute depression Status: Acute KEV FELICIANO DO Nov 15, 2018 09:18
--- NOTE | 2018-11-15 09:24 | Occupational Ther Daily Note ---
OT Current Status-Daily Note Subjective Pt laying in bed at start of session, stating she needs to sit up secondary to her back hurting. Pt reported 10/10 pain and pleasantly agreed OT tx. Mental Status/Objective Patient Orientation: Normal For Age Therapy Code Descriptions/Definitions Functional [place] Measure: 0=Not Assessed/NA 4=Minimal Assistance 1=Total Assistance 5=Supervision or Setup 2=Maximal Assistance 6=Modified [place] 3=Moderate Assistance 7=Complete [place] ADL-Treatment Therapy Code Descriptions/Definitions Functional [place] Measure: 0=Not Assessed/NA 4=Minimal Assistance 1=Total Assistance 5=Supervision or Setup 2=Maximal Assistance 6=Modified [place] 3=Moderate Assistance 7=Complete [place] Therapy Quality Codes: 6 Independent with activity with or without an assistive device 5 Patient requires set up or clean up by helper. Patient completes activity by themselves 4 Supervision or touching assist (CGA). [place] provide cues , steadying assist 3 The helper provides less than half the effort to complete the activity 2 The helper provides more than half the effort to complete the activity 1 Dependent. The helper does all the effort to complete an activity 7 Patient refused to complete or attempt activity 9 The patient did not perform the activity before the current illness or injury 88 Not attempted due to Medical conditions or safety concerns Grooming (FIM): 5 (set up secondary to fatigue after shower, pt brushed hair, washed face, and hands at bed level.) Bathing (FIM): 5 (SBA for safety, pt able to stand from [place] using GB to wash buttocks. Pt educated on long handled sponge, demo'd understanding and was able to wash BLE.) Bathing Location: L Arm, R Arm, L Upper Leg, R Upper Leg, L Lower Leg (including foot), R Lower Leg (including foot), Chest, Abdomen, Buttocks, Perineal Area Shower/Bathe Self (QC): 4 Upper Body (FIM): 4 (Pt completed 02/05 donning bra and 2 ladle puller shirts. Pt clasped bra in front then twisted it to the front, requiring assistance with threading RUE. Pt able to don/doff back brace independently.) Upper Body Dressing (QC): 3 Lower Body Dressing (FIM): 5 (SBA during standing, pt able to use AE to bhavana LE clothing. 11/01 complete with min verbal cues) Lower Body Dressing (QC): 4 On/Off Footwear (QC): 6 Transfers (B, C, W/C) (FIM): 5 (SBA for sit to/from stand, supine to sit, sit to supine with RW) Shower Transfer(FIM): 5 (SBA, pt ambulated into shower and used GB to sit/stand from SC.) Other Treatment Pt completed 60 min ADL session this AM in bathroom, secondary to fatigue and pain after shower, pt completed grooming tasks at bed level. Pt laying in bed, call light in reach and needs met at end of session. Education OT Patient Education: Correct positioning, Energy conservation, Modified ADL techniques, Progress toward Goal/Update tx plan, Purpose of tx/functional activities, Transfer techniques, Use of adapted equipment Teaching Recipient: Patient Teaching Methods: Demonstration, Discussion Response to Teaching: Verbalize Understanding, Return Demonstration OT Short Term Goals Short Term Goals Time Frame: Nov 23, 2018 Grooming(FIM): 5 Bathing(FIM): 5 Bathing Location: L Arm, R Arm, L Upper Leg, R Upper Leg, L Lower Leg (including foot), R Lower Leg (including foot), Chest, Abdomen, Buttocks, Perineal Area Upper Body Dressing(FIM): 5 Lower Body Dressing(FIM): 5 Toileting(FIM): 5 Transfers (B,C,W/C) (FIM): 3 Toilet/Commode Transfer(FIM): 5 Shower Transfer(FIM): 5 1=Demonstrate adherence to instructed precautions during ADL tasks. 2=Patient will verbalize/demonstrate understanding of assistive devices/modifications for ADL. 3=Patient will improve strength/tolerance for activity to enable patient to perform ADL's. OT Intermediate Goals Intermediate Goals Time Frame: Dec 07, 2018 Eating (FIM): 7 Eating (QC): 6 Groomin Oral Hygiene (QC): 6 Bathing(FIM): 6 Bathing Location: L Arm, R Arm, L Upper Leg, R Upper Leg, L Lower Leg (including foot), R Lower Leg (including foot), Chest, Abdomen, Buttocks, Perineal Area Shower/Bathe Self (QC): 6 Upper Body Dressing(FIM): 6 Upper Body Dressing (QC): 6 Lower Body Dressing(FIM): 6 Lower Body Dressing (QC): 6 On/Off Footwear (QC): 6 Toileting(FIM): 6 Toileting Hygiene (QC): 6 Transfers (B,C,W/C) (FIM): 6 Toilet/Commode Transfer(FIM): 6 Toilet/Commode Transfer (QC): 6 Shower Transfer(FIM): 6 1=Demonstrate adherence to instructed precautions during ADL tasks. 2=Patient will verbalize/demonstrate understanding of assistive devices/modifications for ADL. 3=Patient will improve strength/tolerance for activity to enable patient to perform ADL's. OT Education/Plan Problem List/Assessment Assessment: Decreased Activ Tolerance, Decreased UE Strength, Impaired I ADL's, Impaired Self-Care Skills, Restricted Funct UE ROM Discharge Recommendations Plan/Recommendations: Continue POC Treatment Plan/Plan of Care Treatment,Training & Education: Yes Patient would benefit from OT for education, treatment and training to promote independence in ADL's, mobility, safety and/or upper extremity function for ADL's. Plan of Care: ADL Retraining, Caregiver Training, Functional Mobility, Group Exercise/Act as Ind, UE Funct Exercise/Act Treatment Duration: Nov 12, 2018 Frequency: At least 5 of 7 days/Wk (IRF) Estimated Hrs Per Day: 1 hour per day (60-90 min) Agreement: Yes Rehab Potential: Fair Time/GCodes Start Time: 08:00 Stop Time: 09:00 Total Time Billed (hr/min): 60 Billed Treatment Time 1, ADL 4, X60 min DASH GAMBOA OT Nov 15, 2018 09:24
[2018-11-15] MEDS: DOCUSATE SODIUM 100 MG (COLACE) CAP PO SCH ×2 (10:24→21:25)
[2018-11-15] MEDS: POLYETHYLENE GLYCOL 17 GM (MIRALAX) PACK PO SCH ×2 (10:24→21:25)
[2018-11-15] MEDS: SENNA W/DOCUSATE (SENOKOT S) TABLET PO SCH ×2 (10:25→21:25)
[2018-11-15] MEDS: BISACODYL 10 MG SUPP (DULCOLAX) PR SCH ×2 (10:25→21:25)
--- NOTE | 2018-11-15 11:00 | Physical Therapy Daily Note ---
PT Daily Note-Current Subjective Pt laying Supine in bed upon arrival. Pt agrees to PT. Pt reports not sleeping last night and pain is 10/10 with no relief. Pain Numeric Pain Scale: 10-Worst Possible Pain Location: Incisional, Lower Location Body Site: Back Pain Description: Ache, Tightness Mental Status Patient Orientation: Person, Place, Situation Attachments: Other-See Comments (Back Brace) Transfers Therapy Code Descriptions/Definitions Functional [place] Measure: 0=Not Assessed/NA 4=Minimal Assistance 1=Total Assistance 5=Supervision or Setup 2=Maximal Assistance 6=Modified [place] 3=Moderate Assistance 7=Complete [place] Therapy Quality Codes: 6 Independent with activity with or without an assistive device 5 Patient requires set up or clean up by helper. Patient completes activity by themselves 4 Supervision or touching assist (CGA). [place] provide cues , steadying assist 3 The helper provides less than half the effort to complete the activity 2 The helper provides more than half the effort to complete the activity 1 Dependent. The helper does all the effort to complete an activity 7 Patient refused to complete or attempt activity 9 The patient did not perform the activity before the current illness or injury 88 Not attempted due to Medical conditions or safety concerns Scootin Supine to/from Sit: 4 Sit to/from Stand: 5 Sit to Lying (QC): 5 Sit to Stand (QC): 5 Weight Bearing Full Weight Bearing Full Weight Bearing Gait Training Does the Patient Walk?: Yes Gait (FIM): 5 Distance (FIM): 3=150 ft Distance: 150' Walk 10 feet (QC): 5 Walk 50 ft with 2 Turns(QC): 5 Walk 150 ft (QC): 5 Gait Level of Assist: 5 Gait Persons Needed: 1 Gait Assistive Device: FWW Exercises Supine Ex: Ankle pumps, Quad Set, Glut sets, Heel Slides, Short Arc Quads, Hip abd/add Supine Reps: 15 NuStep Minutes: 15 NuStep Workload: 4 Treatments Pt transfers from bed to standing then transfers to W/C. Pt propels W/C in hallway and to Therapy Gym. Pt uses NuStep before short RB. Pt completes Supine EX then stands to ambulate in hallway. Pt returns to room with all needs met, call light in hand. Assessment Current Status: Fair Progress Pt is limited at this time by perceived pain. PT Short Term Goals Short Term Goals Time Frame: Nov 16, 2018 Transfers (B,C,W/C) (FIM): 3 Gait (FIM): 2 Gait Distance Comment: 50' Gait Level of Assist: 4 Gait Assistive Device: FWW PT Skilled Nursing Goals Skilled Nursing Goals PT Healthcare Analyst Goals Time Frame: Nov 30, 2018 Transfers (B,C,W/C) (FIM): 4 Sit to Lying (QC): 3 Lying-Sitting on Side/Bed(QC): 3 Sit to Stand (QC): 4 Rollin Roll Left to Right (QC): 3 Chair/Uck-mz-Xpeso Xfer(QC): 4 Car Transfer (QC): 3 Gait (FIM): 4 Distance: 150' Walk 10 feet (QC): 4 Walk 10ft-Uneven Surface(QC): 4 Walk 50ft with 2 Turns (QC): 4 Walk 150 ft (QC): 4 Gait Level of Assist: 4 Gait Assistive Device: FWW Stairs (FIM): 2 # of Steps: 4 1 Step (curb) (QC): 4 4 Steps (QC): 4 Stairs Level Of Assist: 4 PT Plan Problem List Problem List: Activity Tolerance, Functional Strength, Gait, Transfer Treatment/Plan Treatment Plan: Continue Plan of Care Treatment Plan: Bed Mobility, Concurrent Therapy, Education, Functional Activity Desiree, Functional Strength, Group Therapy, Gait, Safety, Therapeutic Exercise, Transfers Treatment Duration: Nov 30, 2018 Frequency: At least 5 of 7 days/Wk (IRF) Estimated Hrs Per Day: 1.5 hours per day Patient and/or Family Agrees t: Yes Safety Risks/Education Patient Education: Transfer Techniques, Correct Positioning, W/C Management, Safety Issues Teaching Recipient: Patient Teaching Methods: Discussion Response to Teaching: Verbalize Understanding Time/GCodes Time In: 1000 Time Out: 1100 Total Billed Treatment Time: 60 Total Billed Treatment 1, GT (15m), EX x2 (30m) & WCH (15m) MARCI KIRK PTA Nov 15, 2018 11:00
--- NOTE | 2018-11-15 13:36 | Occupational Ther Daily Note ---
OT Current Status-Daily Note Subjective Pt laying in bed at start of session, stated her back was really hurting, pleasantly agreed to OT tx. Mental Status/Objective Patient Orientation: Normal For Age Therapy Code Descriptions/Definitions Functional [place] Measure: 0=Not Assessed/NA 4=Minimal Assistance 1=Total Assistance 5=Supervision or Setup 2=Maximal Assistance 6=Modified [place] 3=Moderate Assistance 7=Complete [place] ADL-Treatment Therapy Code Descriptions/Definitions Functional [place] Measure: 0=Not Assessed/NA 4=Minimal Assistance 1=Total Assistance 5=Supervision or Setup 2=Maximal Assistance 6=Modified [place] 3=Moderate Assistance 7=Complete [place] Therapy Quality Codes: 6 Independent with activity with or without an assistive device 5 Patient requires set up or clean up by helper. Patient completes activity by themselves 4 Supervision or touching assist (CGA). [place] provide cues , steadying assist 3 The helper provides less than half the effort to complete the activity 2 The helper provides more than half the effort to complete the activity 1 Dependent. The helper does all the effort to complete an activity 7 Patient refused to complete or attempt activity 9 The patient did not perform the activity before the current illness or injury 88 Not attempted due to Medical conditions or safety concerns Transfers (B, C, W/C) (FIM): 5 (SBA supine to sit, sit to supine, and sit to/from stand with RW) Other Treatment Pt ambulated to therapy gym SBA with RW. In order to work on BUE strength and endurance to increase independence in ADLs and functional activities, pt placed/removed X100 pegs in pegboard, alternating R/L UE with 2 lb wrist cuffs on BUE. Pt completed task in 13 min, 44 seconds, taking rest breaks as needed. Pt ambulated back to room with RW where she wanted to lay in bed to rest before PT tx later this afternoon. Pt laying in bed post OT session, call light in reach and needs met. Education OT Patient Education: Correct positioning, Energy conservation, Exercise program, Progress toward Goal/Update tx plan, Purpose of tx/functional activities Teaching Recipient: Patient Teaching Methods: Demonstration, Discussion Response to Teaching: Verbalize Understanding, Return Demonstration OT Short Term Goals Short Term Goals Time Frame: Nov 23, 2018 Grooming(FIM): 5 Bathing(FIM): 5 Bathing Location: L Arm, R Arm, L Upper Leg, R Upper Leg, L Lower Leg (including foot), R Lower Leg (including foot), Chest, Abdomen, Buttocks, Perineal Area Upper Body Dressing(FIM): 5 Lower Body Dressing(FIM): 5 Toileting(FIM): 5 Transfers (B,C,W/C) (FIM): 3 Toilet/Commode Transfer(FIM): 5 Shower Transfer(FIM): 5 1=Demonstrate adherence to instructed precautions during ADL tasks. 2=Patient will verbalize/demonstrate understanding of assistive devices/modifications for ADL. 3=Patient will improve strength/tolerance for activity to enable patient to perform ADL's. OT Yam Curer Goals Half-Way Goals Time Frame: Dec 07, 2018 Eating (FIM): 7 Eating (QC): 6 Groomin Oral Hygiene (QC): 6 Bathing(FIM): 6 Bathing Location: L Arm, R Arm, L Upper Leg, R Upper Leg, L Lower Leg (including foot), R Lower Leg (including foot), Chest, Abdomen, Buttocks, Per ineal Area Shower/Bathe Self (QC): 6 Upper Body Dressing(FIM): 6 Upper Body Dressing (QC): 6 Lower Body Dressing(FIM): 6 Lower Body Dressing (QC): 6 On/Off Footwear (QC): 6 Toileting(FIM): 6 Toileting Hygiene (QC): 6 Transfers (B,C,W/C) (FIM): 6 Toilet/Commode Transfer(FIM): 6 Toilet/Commode Transfer (QC): 6 Shower Transfer(FIM): 6 1=Demonstrate adherence to instructed precautions during ADL tasks. 2=Patient will verbalize/demonstrate understanding of assistive devices/modifications for ADL. 3=Patient will improve strength/tolerance for activity to enable patient to perform ADL's. OT Education/Plan Problem List/Assessment Assessment: Decreased Activ Tolerance, Decreased UE Strength, Impaired I ADL's, Impaired Self-Care Skills, Restricted Funct UE ROM Discharge Recommendations Plan/Recommendations: Continue POC Treatment Plan/Plan of Care Treatment,Training & Education: Yes Patient would benefit from OT for education, treatment and training to promote independence in ADL's, mobility, safety and/or upper extremity function for ADL's. Plan of Care: ADL Retraining, Caregiver Training, Functional Mobility, Group Exercise/Act as Ind, UE Funct Exercise/Act Treatment Duration: Nov 12, 2018 Frequency: At least 5 of 7 days/Wk (IRF) Estimated Hrs Per Day: 1 hour per day (60-90 min) Agreement: Yes Rehab Potential: Fair Time/GCodes Start Time: 13:00 Stop Time: 13:30 Total Time Billed (hr/min): 30 Billed Treatment Time 1, FA 2 X30 min DASH GAMBOA OT Nov 15, 2018 13:36
--- NOTE | 2018-11-15 15:04 | Physical Therapy Daily Note ---
PT Daily Note-Current Subjective Pt L sidelying upon arrival. Pt reluctantly agrees to PT due to pain. Pain Numeric Pain Scale: 10-Worst Possible Pain Location: Incisional, Lower Location Body Site: Back Pain Description: Ache, Tightness, Sharp Mental Status Patient Orientation: Person, Place, Situation Attachments: Other-See Comments (Back Brace) Transfers Therapy Code Descriptions/Definitions Functional [place] Measure: 0=Not Assessed/NA 4=Minimal Assistance 1=Total Assistance 5=Supervision or Setup 2=Maximal Assistance 6=Modified [place] 3=Moderate Assistance 7=Complete [place] Therapy Quality Codes: 6 Independent with activity with or without an assistive device 5 Patient requires set up or clean up by helper. Patient completes activity by themselves 4 Supervision or touching assist (CGA). [place] provide cues , steadying assist 3 The helper provides less than half the effort to complete the activity 2 The helper provides more than half the effort to complete the activity 1 Dependent. The helper does all the effort to complete an activity 7 Patient refused to complete or attempt activity 9 The patient did not perform the activity before the current illness or injury 88 Not attempted due to Medical conditions or safety concerns Weight Bearing Full Weight Bearing Full Weight Bearing Exercises Supine Ex: Ankle pumps, Quad Set, Glut sets, Heel Slides, Straight leg raise, Hip abd/add Supine Reps: 15 Treatments Pt L sidelying reports pain in back and asks ASSEMBLY RIVETER for massage. Pt assists pt then pt completes Supine EX in bed. Nurse gives pain med during tx as requested by pt. Pt has all needs met, call light in hand. Assessment Current Status: Fair Progress Pain limits pt's participation. PT Short Term Goals Short Term Goals Time Frame: Nov 16, 2018 Transfers (B,C,W/C) (FIM): 3 Gait (FIM): 2 Gait Distance Comment: 50' Gait Level of Assist: 4 Gait Assistive Device: FWW PT Penitentiary Goals Penitentiary Goals PT 4 H Youth Development Specialist Goals Time Frame: Nov 30, 2018 Transfers (B,C,W/C) (FIM): 4 Sit to Lying (QC): 3 Lying-Sitting on Side/Bed(QC): 3 Sit to Stand (QC): 4 Rollin Roll Left to Right (QC): 3 Chair/Jqa-sn-Poldp Xfer(QC): 4 Car Transfer (QC): 3 Gait (FIM): 4 Distance: 150' Walk 10 feet (QC): 4 Walk 10ft-Uneven Surface(QC): 4 Walk 50ft with 2 Turns (QC): 4 Walk 150 ft (QC): 4 Gait Level of Assist: 4 Gait Assistive Device: FWW Stairs (FIM): 2 # of Steps: 4 1 Step (curb) (QC): 4 4 Steps (QC): 4 Stairs Level Of Assist: 4 PT Plan Problem List Problem List: Activity Tolerance, Functional Strength, Transfer Treatment/Plan Treatment Plan: Continue Plan of Care Treatment Plan: Bed Mobility, Concurrent Therapy, Education, Functional Activity Desiree, Functional Strength, Group Therapy, Gait, Safety, Therapeutic Exercise, Transfers Treatment Duration: Nov 30, 2018 Frequency: At least 5 of 7 days/Wk (IRF) Estimated Hrs Per Day: 1.5 hours per day Patient and/or Family Agrees t: Yes Safety Risks/Education Patient Education: Correct Positioning, Reviewed Don/Doff Brace, Safety Issues Teaching Recipient: Patient Teaching Methods: Discussion Response to Teaching: Verbalize Understanding Time/GCodes Time In: 1430 Time Out: 1500 Total Billed Treatment Time: 30 Total Billed Treatment 1, FA (10m) & EX (20m) MARCI KIRK ASSEMBLY RIVETER Nov 15, 2018 15:04
[2018-11-15 16:00] VITALS: BP 124/86
[2018-11-15] MEDS: fentaNYL PATCH 75 MCG (DURAGESIC) TD SCH (16:46)
[2018-11-15] MEDS: [UNRECOGNIZED DRUG - REMARK] TP SCH (16:46)
[2018-11-15] MEDS: clonazePAM 1 MG (KlonoPIN) TAB PO PRN (23:26)
[2018-11-16 05:02] VITALS: BP 97/61
[2018-11-16 06:27] LABS: BASOPHILS % (AUTO) 1 % (0-10); EOSINOPHILS # (AUTO) 0.4 10^3/uL (0.0-0.3); EOSINOPHILS % (AUTO) 6 % (0-10); HEMATOCRIT 31 % (35-52); HEMOGLOBIN 9.6 G/DL (11.5-16.0); LYMPHOCYTES % (AUTO) 33 % (12-44); MEAN CORPUSCULAR HEMOGLOBIN 26 PG (25-34); MEAN CORPUSCULAR HGB CONC 31 G/DL (32-36); MEAN CORPUSCULAR VOLUME 85 FL (80-99); MEAN PLATELET VOLUME 10.2 FL (7.4-10.4); MONOCYTES # (AUTO) 0.8 X 10^3 (0.0-1.0); MONOCYTES % (AUTO) 13 % (0-12); NEUTROPHILS # (AUTO) 3.1 X 10^3 (1.8-7.8); NEUTROPHILS % (AUTO) 49 % (42-75); PLATELET COUNT 409 10^3/uL (130-400); RED CELL DISTRIBUTION WIDTH 14.5 % (10.0-14.5); WHITE BLOOD COUNT 6.3 10^3/uL (4.3-11.0)
[2018-11-16 06:31] LABS: ALANINE AMINOTRANSFERASE 6 U/L (0-55); ALKALINE PHOSPHATASE 105 U/L (40-136); BILIRUBIN,TOTAL 0.4 MG/DL (0.1-1.0); BUN/CREATININE RATIO 16; CALCIUM 8.8 MG/DL (8.5-10.1); CARBON DIOXIDE 22 MMOL/L (21-32); CHLORIDE 108 MMOL/L (98-107); CREATININE SERUM 0.83 MG/DL (0.60-1.30); GFR ESTIMATED > 60; GLUCOSE 99 MG/DL (70-105); POTASSIUM 3.4 MMOL/L (3.6-5.0); SODIUM 141 MMOL/L (135-145); TOTAL PROTEIN 5.5 GM/DL (6.4-8.2)
[2018-11-16] MEDS: hydrOXYzine (VISTARIL/ATARAX) 25 MG capsule/tablet PO PRN ×2 (06:51→21:34)
[2018-11-16] MEDS: DOCUSATE SODIUM 100 MG (COLACE) CAP PO SCH ×2 (08:03→20:38)
[2018-11-16] MEDS: OXYBUTYNIN (DITROPAN) 5 MG TAB PO SCH ×2 (08:03→20:35)
[2018-11-16] MEDS: LOSARTAN 100 MG (COZAAR) TABLET PO SCH (08:03)
[2018-11-16] MEDS: GABAPENTIN 600 MG (NEURONTIN) TAB PO SCH ×2 (08:03→20:35)
[2018-11-16] MEDS: CLOPIDOGREL 75 MG (PLAVIX) TABLET PO SCH (08:03)
[2018-11-16] MEDS: ATORVASTATIN 10 MG (LIPITOR) TABLET PO SCH (08:03)
[2018-11-16] MEDS: POLYETHYLENE GLYCOL 17 GM (MIRALAX) PACK PO SCH ×2 (08:05→20:33)
[2018-11-16] MEDS: SENNA W/DOCUSATE (SENOKOT S) TABLET PO SCH ×2 (08:05→20:39)
[2018-11-16] MEDS: BISACODYL 10 MG SUPP (DULCOLAX) PR SCH ×2 (08:06→20:39)
--- NOTE | 2018-11-16 08:39 | Progress Note - Hospitalist ---
[facility] 11/16/18 0839: Progress Note Tabatha's had some increased pain last night 2/2 back spasms Was able to sleep once pain was controlled Her CMP shows hypokalemia, add 10meq PO QD CBC shows some microcytic anemia - consider oral Iron KLELE BRITO DO 11/16/185: Supervisory-Addendum Brief Verification & Attestation Participated in pt care: history, MDM, physical Personally performed: exam, history, MDM, supervision of care Care discussed with: Medical Student Procedures: n/a Results interpretation: Verified all documentation Verification and Attestation of Medical Student E/M Service A medical student performed and documented this service in my presence. I rev iewed and verified all information documented by the medical student and made modifications to such information, when appropriate. I personally performed the physical exam and medical decision making. Kelle Brito, Nov 16, 2018,21:25 [facility] Nov 16, 2018 08:39 KELLE BRITO DO Nov 16, 2018 21:25
[2018-11-16] MEDS: clonazePAM 1 MG (KlonoPIN) TAB PO PRN (09:53)
[2018-11-16] MEDS: ONDANSETRON 4 MG (ZOFRAN) ORAL DISSOLVE TAB PO PRN (09:53)
--- NOTE | 2018-11-16 10:02 | Occupational Ther Daily Note ---
OT Current Status-Daily Note Subjective Pt laying in bed at start of session, agreeable to OT tx focusing on UE in therapy gym. During tx, pt stated she felt nauseous and nursing notified. Mental Status/Objective Patient Orientation: Normal For Age Therapy Code Descriptions/Definitions Functional [place] Measure: 0=Not Assessed/NA 4=Minimal Assistance 1=Total Assistance 5=Supervision or Setup 2=Maximal Assistance 6=Modified [place] 3=Moderate Assistance 7=Complete [place] ADL-Treatment Therapy Code Descriptions/Definitions Functional [place] Measure: 0=Not Assessed/NA 4=Minimal Assistance 1=Total Assistance 5=Supervision or Setup 2=Maximal Assistance 6=Modified [place] 3=Moderate Assistance 7=Complete [place] Therapy Quality Codes: 6 Independent with activity with or without an assistive device 5 Patient requires set up or clean up by helper. Patient completes activity by themselves 4 Supervision or touching assist (CGA). [place] provide cues , steadying assist 3 The helper provides less than half the effort to complete the activity 2 The helper provides more than half the effort to complete the activity 1 Dependent. The helper does all the effort to complete an activity 7 Patient refused to complete or attempt activity 9 The patient did not perform the activity before the current illness or injury 88 Not attempted due to Medical conditions or safety concerns Grooming (FIM): 5 (set up secondary to pt feeling nauseous, pt able to wash face and hands with wet washcloth.) Transfers (B, C, W/C) (FIM): 5 (SBA for safety and balance sit to/from stand with RW. Mod I bed mobility.) Other Treatment Pt ambulated to gym with FWW. in order to increase UE strength/endurance to increase independence in ADLs and functional mobility, pt completed the followi ng exercises: 1) arm bike X3 minutes, 2 reps. 2) 2lb free weight, X25 reps, 2 sets each of the following - elbow flexion/extension, pronation/supination, wrist flexion/extension. Pt stated she was feeling nauseous and needed to lay down. Pt ambulated back to room where she sat upright in recliner, pt washed face and hands with washcloth. Nursing notified of how pt felt. Dr came into room and briefly talked with pt. OT assisted pt into bed. Pt laying in bed, call light in reach and needs met at end of session. Education OT Patient Education: Correct positioning, Energy conservation, Progress toward Goal/Update tx plan, Purpose of tx/functional activities, Transfer techniques Teaching Recipient: Patient Teaching Methods: Demonstration, Discussion Response to Teaching: Verbalize Understanding, Return Demonstration OT Short Term Goals Short Term Goals Time Frame: Nov 23, 2018 Grooming(FIM): 5 Bathing(FIM): 5 Bathing Location: L Arm, R Arm, L Upper Leg, R Upper Leg, L Lower Leg (including foot), R Lower Leg (including foot), Chest, Abdomen, Buttocks, Perine al Area Upper Body Dressing(FIM): 5 Lower Body Dressing(FIM): 5 Toileting(FIM): 5 Transfers (B,C,W/C) (FIM): 3 Toilet/Commode Transfer(FIM): 5 Shower Transfer(FIM): 5 1=Demonstrate adherence to instructed precautions during ADL tasks. 2=Patient will verbalize/demonstrate understanding of assistive devices/modifications for ADL. 3=Patient will improve strength/tolerance for activity to enable patient to perform ADL's. OT Assisted Goals Seamless Tube Mill Operator Goals Time Frame: Dec 07, 2018 Eating (FIM): 7 Eating (QC): 6 Groomin Oral Hygiene (QC): 6 Bathing(FIM): 6 Bathing Location: L Arm, R Arm, L Upper Leg, R Upper Leg, L Lower Leg (including foot), R Lower Leg (including foot), Chest, Abdomen, Buttocks, Perineal Area Shower/Bathe Self (QC): 6 Upper Body Dressing(FIM): 6 Upper Body Dressing (QC): 6 Lower Body Dressing(FIM): 6 Lower Body Dressing (QC): 6 On/Off Footwear (QC): 6 Toileting(FIM): 6 Toileting Hygiene (QC): 6 Transfers (B,C,W/C) (FIM): 6 Toilet/Commode Transfer(FIM): 6 Toilet/Commode Transfer (QC): 6 Shower Transfer(FIM): 6 1=Demonstrate adherence to instructed precautions during ADL tasks. 2=Patient will verbalize/demonstrate understanding of assistive devices/modifications for ADL. 3=Patient will improve strength/tolerance for activity to enable patient to perform ADL's. OT Education/Plan Problem List/Assessment Assessment: Decreased Activ Tolerance, Decreased UE Strength, Impaired I ADL's, Impaired Self-Care Skills Discharge Recommendations Plan/Recommendations: Continue POC Treatment Plan/Plan of Care Treatment,Training & Education: Yes Patient would benefit from OT for education, treatment and training to promote independence in ADL's, mobility, safety and/or upper extremity function for ADL's. Plan of Care: ADL Retraining, Caregiver Training, Functional Mobility, Group Exercise/Act as Ind, UE Funct Exercise/Act Treatment Duration: Nov 12, 2018 Frequency: At least 5 of 7 days/Wk (IRF) Estimated Hrs Per Day: 1 hour per day (60-90 min) Agreement: Yes Rehab Potential: Fair Time/GCodes Start Time: 08:55 Stop Time: 09:50 Total Time Billed (hr/min): 55 Billed Treatment Time 1, EX 3 X45min, ADL X10min DASH GAMBOA OT Nov 16, 2018 10:02
--- NOTE | 2018-11-16 10:06 | PM&R Progress Note ---
Subjective HPI/CC On Admission Date Seen by Provider: Nov 16, 2018 Time Seen by Provider: 09:45 Chief complaint: Spinal fusion with slow recovery and debility History of present illness: This is a 77-year-old white female patient of Dr. Kassi Ferguson in [facility] who presents to inpatient rehab after undergoing an uncomplicated spinal fusion surgery by Dr. Kim on 11/07/2018 but had just such slow recovery she was required to go to inpatient rehab for intensive and structured therapy program prior to returning home with her . I have reviewed and restarted all of her home medications except for chlorthalidone due to high risk for hyponatremia and postop state. We did replace fentanyl patch since it had fallen off and it was taped back to the skin yesterday. She has not had a bowel movement so we will maintain bowel regimen. Overall she is been slow to walk and regain any ADL independence. Check meds and labs. Subjective/Events-last exam Patient doing much better Overall feels better Melatonin help sleeping at night No bowel movement yet so meds will be given Potassium supplement will be given at 10 mEq daily Hemoglobin 9.6 Blood pressure stable No falls Check meds and labs Conferred with RN Reviewed therapy notes Review of Systems Musculoskeletal: back pain, leg pain Objective Exam Vital Signs Vital Signs Date Time Temp Pulse Resp B/P (MAP) Pulse Ox O2 Delivery O2 Flow Rate FiO2 11/16/18 16:00 96.6 63 16 107/71 (83) 98 Room Air Capillary Refill : General Appearance: No Apparent Distress, WD/WN, Chronically ill, Obese HEENT: PERRL/EOMI, Normal ENT Inspection, Pharynx Normal, Moist Mucous Membranes Neck: Full Range of Motion, Normal Inspection, Non Tender, Supple Respiratory: Chest Non Tender, Lungs Clear, Normal Breath Sounds, No Accessory Muscle Use, No Respiratory Distress Cardiovascular: Regular Rate, Rhythm, No Edema, No Gallop, No JVD, No Murmur Gastrointestinal: Normal Bowel Sounds, No Organomegaly, No Pulsatile Mass, Non Tender, Soft Back: Decreased Range of Motion, Muscle Spasm, Vertebral Tenderness Extremity: Normal Capillary Refill, Normal Inspection, Normal Range of Motion, Non Tender, No Calf Tenderness, No Pedal Edema Neurologic/Psychiatric: Alert, Oriented x3, No Motor/Sensory Deficits, Normal Mood/Affect, net application support specialist II-XII Norm as Tested, Motor Weakness (generalized lower extremities) Skin: Normal Color, Warm/Dry Lymphatic: No Adenopathy Results/Procedures Lab Laboratory Tests 11/16/18 05:25 Patient resulted labs reviewed. FIM Transfers Therapy Code Descriptions/Definitions Functional [place] Measure: 0=Not Assessed/NA 4=Minimal Assistance 1=Total Assistance 5=Supervision or Setup 2=Maximal Assistance 6=Modified [place] 3=Moderate Assistance 7=Complete [place] Therapy Quality Codes: 6 Independent with activity with or without an assistive device 5 Patient requires set up or clean up by helper. Patient completes activity by themselves 4 Supervision or touching assist (CGA). [place] provide cues , steadying assist 3 The helper provides less than half the effort to complete the activity 2 The helper provides more than half the effort to complete the activity 1 Dependent. The helper does all the effort to complete an activity 7 Patient refused to complete or attempt activity 9 The patient did not perform the activity before the current illness or injury 88 Not attempted due to Medical conditions or safety concerns Transfers (B, C, W/C) (FIM): 5 (SBA for safety and balance sit to/from stand with RW. Mod I bed mobility.) Scootin Rollin Roll Left to Right (QC): 2 Supine to/from Sit: 4 Sit to/from Stand: 5 Sit to Lying (QC): 5 Sit to Stand (QC): 5 Chair/Vbd-kr-Abiqd Xfer(QC): 3 Bed to/from Chair: 3 Car Transfer (QC): 2 Gait Training Does the Patient Walk?: Yes Gait (FIM): 5 Distance (FIM): 3=150 ft Distance: 150' Walk 10 feet (QC): 5 Walk 50 ft with 2 Turns(QC): 5 Walk 150 ft (QC): 5 Gait Level of Assist: 5 Gait Persons Needed: 1 Gait Assistive Device: FWW Wheelchair Training Does the Pt Use a Wheelchair?: Yes Wheelchair (FIM): 1 Type of Wheelchair: Manual Stair Training Stair Training: Handrails/: 2 handrails #of Steps: 8 1 Step (curb) (QC): 5 4 Steps (QC): 5 Stairs: Pattern: Step to Level of Assist: 5 Mental Status/Objective Comprehension: 7 Expression: 7 Social Interaction: 7 Problem Solvin Memory: 6 ADL-Treatment Feedin Eating (QC): 6 Groomin (set up secondary to pt feeling nauseous, pt able to wash face and hands with wet washcloth.) Oral Hygiene (QC): 4 Bathin (SBA for safety, pt able to stand from SC using GB to wash buttocks. Pt educated on long handled sponge, kendrick'd understanding and was able to wash BLE.) Bathing Location: L Arm, R Arm, L Upper Leg, R Upper Leg, L Lower Leg (including foot), R Lower Leg (including foot), Chest, Abdomen, Buttocks, Perineal Area Shower/Bathe Self (QC): 4 Upper Extremity Dressin (Pt completed 02/05 donning bra and 2 pot puller shirts. Pt clasped bra in front then twisted it to the front, requiring assistance with threading RUE. Pt able to don/doff back brace independently.) Upper Body Dressing (QC): 3 Lower Extremity Dressin (SBA during standing, pt able to use AE to bhavana LE clothing. 11/01 complete with min verbal cues) Lower Body Dressing (QC): 4 On/Off Footwear (QC): 6 Toiletin (2/3 completed. Pt required assistance with hygiene after BM, she stated her helps her with this at home due to her not being able to reach.) Toileting Hygiene (QC): 3 Toilet/Commode Transfer: 4 (CGA sit to stand off of toilet. ) Toilet Transfer (QC): 4 Shower: 5 (SBA, pt ambulated into shower and used GB to sit/stand from SC.) Assessment/Plan Assessment and Plan Assess & Plan/Chief Complaint Assessment: Status post spinal fusion uncomplicated but slow recovery with debility Hypertension Rheumatoid arthritis GERD Irritable bowel syndrome Hyperlipidemia Overactive bladder Antiplatelet agent chronic Emotional problems/difficult coping Hypokalemia Plan: Restarted Plavix Monday Pain control with fentanyl patch Check labs prn Bowel regimen to maintain Inpatient rehab therapy protocol Much improved today Increase pain meds by decreasing hours in between and that seems to be helping Progressing well Potassium supplement (1) S/P spinal fusion Status: Acute (2) Postoperative anemia Status: Acute (3) Rheumatoid arthritis Status: Chronic Qualifiers: Rheumatoid arthritis location: unspecified site Rheumatoid factor presence: unspecified presence Qualified Codes: M06.9 - Rheumatoid arthritis, unspecified (4) Anxiety Status: Chronic (5) Hyperlipemia Status: Chronic Qualifiers: Hyperlipidemia type: mixed hyperlipidemia Qualified Codes: E78.2 - Mixed hyperlipidemia (6) GERD (gastroesophageal reflux disease) Status: Chronic Qualifiers: Esophagitis presence: without esophagitis Qualified Codes: K21.9 - Gastro- esophageal reflux disease without esophagitis (7) Debility Status: Acute (8) Hypertension Status: Chronic Qualifiers: Hypertension type: essential hypertension Qualified Codes: I10 - Essential (primary) hypertension (9) Chronic pain Status: Chronic Qualifiers: Chronic pain type: chronic pain syndrome Qualified Codes: G89.4 - Chronic pain syndrome (10) Overactive bladder Status: Chronic (11) Acute depression Status: Acute KEV FELICIANO DO Nov 16, 2018 10:06
--- NOTE | 2018-11-16 12:00 | Physical Therapy Daily Note ---
PT Daily Note-Current Subjective Pt. states she feels sick to her stomache and has had this for years. Agrees to try Rx if we take it slow Pain Numeric Pain Scale: 4 Location: Right Location Body Site: Back Pain Description: Ache Appearance tearful at times Mental Status Patient Orientation: Normal For Age Attachments: Other-See Comments (back brace) Transfers Therapy Code Descriptions/Definitions Functional [place] Measure: 0=Not Assessed/NA 4=Minimal Assistance 1=Total Assistance 5=Supervision or Setup 2=Maximal Assistance 6=Modified [place] 3=Moderate Assistance 7=Complete [place] Therapy Quality Codes: 6 Independent with activity with or without an assistive device 5 Patient requires set up or clean up by helper. Patient completes activity by themselves 4 Supervision or touching assist (CGA). [place] provide cues , steadying assist 3 The helper provides less than half the effort to complete the activity 2 The helper provides more than half the effort to complete the activity 1 Dependent. The helper does all the effort to complete an activity 7 Patient refused to complete or attempt activity 9 The patient did not perform the activity before the current illness or injury 88 Not attempted due to Medical conditions or safety concerns Transfers (B, C, W/C) (FIM): 5 Scootin Rollin Supine to/from Sit: 6 Sit to/from Stand: 5 Bed to/from Chair: 5 has discomfort in low back with sit to stand , needs higher surface for safety and comfort Weight Bearing Full Weight Bearing Full Weight Bearing Gait Training Does the Patient Walk?: Yes Gait (FIM): 5 Distance (FIM): 3=150 ft (200x2) Gait Level of Assist: 5 Gait Persons Needed: 1 Gait Assistive Device: FWW Stair Training Stair Training: Handrails/: 2 handrails Stairs (FIM): 5 #of Steps: 4 Stairs: Pattern: Reciprocal Level of Assist: 5 needs SBA only, uses bilat rails Assessment Current Status: Good Progress needs slow pace , encouragement PT Short Term Goals Short Term Goals Time Frame: Nov 16, 2018 Transfers (B,C,W/C) (FIM): 3 Gait (FIM): 2 Gait Distance Comment: 50' Gait Level of Assist: 4 Gait Assistive Device: FWW PT Fdc Goals Fdc Goals PT Credit Collector Goals Time Frame: Nov 30, 2018 Transfers (B,C,W/C) (FIM): 4 Sit to Lying (QC): 3 Lying-Sitting on Side/Bed(QC): 3 Sit to Stand (QC): 4 Rollin Roll Left to Right (QC): 3 Chair/Rsc-gv-Kooos Xfer(QC): 4 Car Transfer (QC): 3 Gait (FIM): 4 Distance: 150' Walk 10 feet (QC): 4 Walk 10ft-Uneven Surface(QC): 4 Walk 50ft with 2 Turns (QC): 4 Walk 150 ft (QC): 4 Gait Level of Assist: 4 Gait Assistive Device: FWW Stairs (FIM): 2 # of Steps: 4 1 Step (curb) (QC): 4 4 Steps (QC): 4 Stairs Level Of Assist: 4 PT Plan Treatment/Plan Treatment Plan: Continue Plan of Care Treatment Plan: Bed Mobility, Concurrent Therapy, Education, Functional Activity Dseiree, Functional Strength, Group Therapy, Gait, Safety, Therapeutic Exercise, Transfers Treatment Duration: Nov 30, 2018 Frequency: At least 5 of 7 days/Wk (IRF) Estimated Hrs Per Day: 1.5 hours per day Patient and/or Family Agrees t: Yes Safety Risks/Education Patient Education: Gait Training, Transfer Techniques, Steps, Correct Positioning, Disease Process, Safety Issues Teaching Recipient: Patient Teaching Methods: Demonstration, Discussion Response to Teaching: Verbalize Understanding, Return Demonstration, Reinforcement Needed Time/GCodes Time In: 1100 Time Out: 1200 Total Billed Treatment Time: 60 Total Billed Treatment 1,EX30m,GT15m,FA15m SOTERO SALVADOR MARBLE RUBBER Nov 16, 2018 11:59
--- NOTE | 2018-11-16 12:05 | Physician Query Clarification ---
PQ-Intro New Diagnosis Admission/Discharge Admission Date: Nov 09, 2018 at 14:05 Discharge Date: The medical record reflects the following clinical scenario: History/Risk Factors: s/p fusion, HTN, neuropathy, IBS w/constipation, RA, OA , fibromyalgia Clinical Findings: motor weakness generalized lower extremities Treatment: PT/OT Question: What condition best reflects the above clinical scenario? Please list the spinal condition and level of the spinal condition responsible for the spinal surgery. Please document a response in the Progress Noter or Discharge Farrell 1. Other, with explanation of the clinical findings. 2. Clinically undetermined, no explanation for the clinical findings. PHYSICIAN RESPONSE What condition reflects above: Other, explanation/clinical finding (lumbar stenosis with neurogenic claudication) Please remember a lack of response to the above will prompt a phone page by CDI/Coding staff. In responding to this query, please exercise your independent professional judgment. The purpose of this communication is to more accurately reflect the complexity of your patients condition. The fact that a question is asked does not imply that any particular answer is desired or expected. Thank you for your timely response to this clarification. Requestors name: Tabitha THIS PHYSICIAN QUERY FORM IS A PERMANENT PART OF THE MEDICAL RECORD TABITHA TAVERAS Nov 16, 2018 12:05 KEV FELICIANO DO Nov 17, 2018 12:31
[2018-11-16] MEDS: KCL 10 MEQ TAB (MICRO K) PO SCH (13:21)
--- NOTE | 2018-11-16 14:25 | Therapy Group Daily Note ---
Therapy Daily Group Note Patient Education Topic Home Safety, Fall Prevention, Home Safety, Energy Cons Session Ratio (pt:therapist): 2:1 Goal of Session: Education on ARU Expectations, Energy Conservation Tech., Home Safety Strategies, Memory Strategies Goal Met for this Session: Yes Pt Benefit of Group: Contributions to Others, F/U Use of Strategies @Home, Increased Functional Safety, Improved Cognition, Recognition of Peers, Socialization Other/Notes Pt transported via w/c to [facility] common areas for OT group. Group consisted of introductions (name and fun fact about pt), socialization, ARU expectation, kassy rgy conservation techniques, home safety strategies, and memory strategies. Pt introduced self appropriately and actively listened to peers. Pt participated in matching memory game with pairs, with moderate difficulty with task. Pt given hand out of energy conservation techniques to utilize in every day. Pt acknowledged understanding of handout by giving personal strategies of how to incorporate techniques within personal living. After therapy, pt laying in bed with call light and phone in reach, all needs met with in room. Start Time: 13:00 Stop Time: 14:05 Total Billed Treatment Time: 65 Total Billed Treatment 1, GRP [id number] DASH GAMBOA OT Nov 16, 2018 14:25
[2018-11-16 16:00] VITALS: BP 107/71
--- NOTE | 2018-11-16 19:16 | NUR ---
bedside report received from LALY NOE, assume care of pt
[2018-11-16] MEDS: ACETAMINOPHEN 500 MG TAB (TYLENOL) PO PRN (20:35)
[2018-11-16] MEDS: MELATONIN 3 MG TABLET PO PRN (20:35)
--- NOTE | 2018-11-16 20:35 | NUR ---
c/o pain level 8/10 on numeric scale, Tylenol 5oomg po, assessments & interventions completed, see assessments & interventions pt took miralax but refused Colace, Senokot & Dulcolax suppository
--- NOTE | 2018-11-16 21:04 | NUR ---
rates pain at 7/10 on numeric scale, given oxyir 5mg po
--- NOTE | 2018-11-16 21:34 | NUR ---
c/o itching Vistaril 25mg po given
--- NOTE | 2018-11-16 21:45 | NUR ---
resting quietly in bed, pain level 0/10 on flacc scale
[2018-11-17 06:00] VITALS: BP 100/64
[2018-11-17] MEDS: KCL 10 MEQ TAB (MICRO K) PO SCH (06:55)
--- NOTE | 2018-11-17 07:18 | NUR ---
bedside report given to HERI NOE
[2018-11-17] MEDS: SENNA W/DOCUSATE (SENOKOT S) TABLET PO SCH ×2 (08:08→20:56)
[2018-11-17] MEDS: CLOPIDOGREL 75 MG (PLAVIX) TABLET PO SCH (08:08)
[2018-11-17] MEDS: ATORVASTATIN 10 MG (LIPITOR) TABLET PO SCH (08:08)
[2018-11-17] MEDS: LOSARTAN 100 MG (COZAAR) TABLET PO SCH (08:08)
[2018-11-17] MEDS: OXYBUTYNIN (DITROPAN) 5 MG TAB PO SCH ×2 (08:08→20:54)
[2018-11-17] MEDS: GABAPENTIN 600 MG (NEURONTIN) TAB PO SCH ×2 (08:09→20:53)
[2018-11-17] MEDS: DOCUSATE SODIUM 100 MG (COLACE) CAP PO SCH ×2 (08:09→20:55)
[2018-11-17] MEDS: POLYETHYLENE GLYCOL 17 GM (MIRALAX) PACK PO SCH ×2 (08:10→20:56)
[2018-11-17] MEDS: BISACODYL 10 MG SUPP (DULCOLAX) PR SCH ×2 (09:56→20:56)
[2018-11-17] MEDS: hydrOXYzine (VISTARIL/ATARAX) 25 MG capsule/tablet PO PRN ×2 (11:55→20:54)
--- NOTE | 2018-11-17 12:22 | PM&R Progress Note ---
Subjective HPI/CC On Admission Date Seen by Provider: Nov 17, 2018 Time Seen by Provider: 12:10 Chief complaint: Spinal fusion with slow recovery and debility History of present illness: This is a 77-year-old white female patient of Dr. Kassi Ferguson in [facility] who presents to inpatient rehab after undergoing an uncomplicated spinal fusion surgery by Dr. Kim on 11/07/2018 but had just such slow recovery she was required to go to inpatient rehab for intensive and structured therapy program prior to returning home with her . I have reviewed and restarted all of her home medications except for chlorthalidone due to high risk for hyponatremia and postop state. We did r eplace fentanyl patch since it had fallen off and it was taped back to the skin yesterday. She has not had a bowel movement so we will maintain bowel regimen. Overall she is been slow to walk and regain any ADL independence. Check meds and labs. Subjective/Events-last exam Patient doing much better Overall feels better Melatonin helps sleeping at night No bowel movement yet so additional meds will be given today added on to yesterday's Potassium supplement was started at 10 mEq daily and that has been tolerated Hemoglobin 9.6 yesterday Blood pressure stable No falls Check meds and labs Conferred with RN Reviewed therapy notes Review of Systems Gastrointestinal: Constipation Musculoskeletal: back pain Objective Exam Vital Signs Vital Signs Date Time Temp Pulse Resp B/P (MAP) Pulse Ox O2 Delivery O2 Flow Rate FiO2 11/17/18 17:10 99.1 69 18 97/65 (76) 95 Room Air Capillary Refill : General Appearance: No Apparent Distress, WD/WN, Chronically ill, Obese HEENT: PERRL/EOMI, Normal ENT Inspection, Pharynx Normal, Moist Mucous Membranes Neck: Full Range of Motion, Normal Inspection, Non Tender, Supple Respiratory: Chest Non Tender, Lungs Clear, Normal Breath Sounds, No Accessory Muscle Use, No Respiratory Distress Cardiovascular: Regular Rate, Rhythm, No Edema, No Gallop, No JVD, No Murmur Gastrointestinal: Normal Bowel Sounds, No Organomegaly, No Pulsatile Mass, Non Tender, Soft Back: Decreased Range of Motion, Muscle Spasm, Vertebral Tenderness Extremity: Normal Capillary Refill, Normal Inspection, Normal Range of Motion, Non Tender, No Calf Tenderness, No Pedal Edema Neurologic/Psychiatric: Alert, Oriented x3, No Motor/Sensory Deficits, Normal Mood/Affect, polisher dial II-XII Norm as Tested, Motor Weakness (generalized lower extremities) Skin: Normal Color, Warm/Dry Lymphatic: No Adenopathy Results/Procedures Lab Patient resulted labs reviewed. FIM Transfers Therapy Code Descriptions/Definitions Functional [place] Measure: 0=Not Assessed/NA 4=Minimal Assistance 1=Total Assistance 5=Supervision or Setup 2=Maximal Assistance 6=Modified [place] 3=Moderate Assistance 7=Complete [place] Therapy Quality Codes: 6 Independent with activity with or without an assistive device 5 Patient requires set up or clean up by helper. Patient completes activity by themselves 4 Supervision or touching assist (CGA). [place] provide cues , steadying assist 3 The helper provides less than half the effort to complete the activity 2 The helper provides more than half the effort to complete the activity 1 Dependent. The helper does all the effort to complete an activity 7 Patient refused to complete or attempt activity 9 The patient did not perform the activity before the current illness or injury 88 Not attempted due to Medical conditions or safety concerns Transfers (B, C, W/C) (FIM): 5 Scootin Rollin Roll Left to Right (QC): 2 Supine to/from Sit: 6 Sit to/from Stand: 5 Sit to Lying (QC): 5 Sit to Stand (QC): 5 Chair/Sae-wg-Dipxt Xfer(QC): 3 Bed to/from Chair: 5 Car Transfer (QC): 2 Gait Training Does the Patient Walk?: Yes Gait (FIM): 5 Distance (FIM): 3=150 ft (200x2) Distance: 150' Walk 10 feet (QC): 5 Walk 50 ft with 2 Turns(QC): 5 Walk 150 ft (QC): 5 Gait Level of Assist: 5 Gait Persons Needed: 1 Gait Assistive Device: FWW Wheelchair Training Does the Pt Use a Wheelchair?: Yes Wheelchair (FIM): 1 Type of Wheelchair: Manual Stair Training Stair Training: Handrails/: 2 handrails Stairs (FIM): 5 #of Steps: 4 1 Step (curb) (QC): 5 4 Steps (QC): 5 Stairs: Pattern: Reciprocal Level of Assist: 5 Mental Status/Objective Comprehension: 7 Expression: 7 Social Interaction: 7 Problem Solvin Memory: 6 ADL-Treatment Feedin Eating (QC): 6 Groomin (set up secondary to pt feeling nauseous, pt able to wash face and hands with wet washcloth.) Oral Hygiene (QC): 4 Bathin (SBA for safety, pt able to stand from SC using GB to wash buttocks. Pt educated on long handled sponge, destinyo'd understanding and was able to wash BLE.) Bathing Location: L Arm, R Arm, L Upper Leg, R Upper Leg, L Lower Leg ( including foot), R Lower Leg (including foot), Chest, Abdomen, Buttocks, Perineal Area Shower/Bathe Self (QC): 4 Upper Extremity Dressin (Pt completed 02/05 donning bra and 2 brisket puller shirts. Pt clasped bra in front then twisted it to the front, requiring assistance with threading RUE. Pt able to don/doff back brace independently.) Upper Body Dressing (QC): 3 Lower Extremity Dressin (SBA during standing, pt able to use AE to bhavana LE clothing. 11/01 complete with min verbal cues) Lower Body Dressing (QC): 4 On/Off Footwear (QC): 6 Toiletin (2/3 completed. Pt required assistance with hygiene after BM, she stated her helps her with this at home due to her not being able to reach.) Toileting Hygiene (QC): 3 Toilet/Commode Transfer: 4 (CGA sit to stand off of toilet. ) Toilet Transfer (QC): 4 Shower: 5 (SBA, pt ambulated into shower and used GB to sit/stand from SC.) Assessment/Plan Assessment and Plan Assess & Plan/Chief Complaint Assessment: Status post spinal fusion uncomplicated but slow recovery with debility Hypertension Rheumatoid arthritis GERD Irritable bowel syndrome Hyperlipidemia Overactive bladder Antiplatelet agent chronic Emotional problems/difficult coping Hypokalemia Constipation Plan: Restarted Plavix Monday Pain control with fentanyl patch Check labs prn Bowel regimen to increase Inpatient rehab therapy protocol Much improved today Increase pain meds by decreasing hours in between and that seems to be helping Progressing well Potassium supplement (1) S/P spinal fusion Status: Acute (2) Postoperative anemia Status: Acute (3) Rheumatoid arthritis Status: Chronic Qualifiers: Rheumatoid arthritis location: unspecified site Rheumatoid factor presence: unspecified presence Qualified Codes: M06.9 - Rheumatoid arthritis, unspecified (4) Anxiety Status: Chronic (5) Hyperlipemia Status: Chronic Qualifiers: Hyperlipidemia type: mixed hyperlipidemia Qualified Codes: E78.2 - Mixed hyperlipidemia (6) GERD (gastroesophageal reflux disease) Status: Chronic Qualifiers: Esophagitis presence: without esophagitis Qualified Codes: K21.9 - Gastro- esophageal reflux disease without esophagitis (7) Debility Status: Acute (8) Hypertension Status: Chronic Qualifiers: Hypertension type: essential hypertension Qualified Codes: I10 - Essential (primary) hypertension (9) Chronic pain Status: Chronic Qualifiers: Chronic pain type: chronic pain syndrome Qualified Codes: G89.4 - Chronic pain syndrome (10) Overactive bladder Status: Chronic (11) Acute depression Status: Acute KEV FELICIANO DO Nov 17, 2018 12:22
--- NOTE | 2018-11-17 12:23 | Physical Therapy Daily Note ---
PT Daily Note-Current Subjective Agrees to PT. Reports she feels she is nearly ready for discharge home. Reports her is very helpful. Reported she did not think she would need [facility] PT. Transfers Therapy Code Descriptions/Definitions Functional [place] Measure: 0=Not Assessed/NA 4=Minimal Assistance 1=Total Assistance 5=Supervision or Setup 2=Maximal Assistance 6=Modified [place] 3=Moderate Assistance 7=Complete [place] Therapy Quality Codes: 6 Independent with activity with or without an assistive device 5 Patient requires set up or clean up by helper. Patient completes activity by themselves 4 Supervision or touching assist (CGA). [place] provide cues , steadying assist 3 The helper provides less than half the effort to complete the activity 2 The helper provides more than half the effort to complete the activity 1 Dependent. The helper does all the effort to complete an activity 7 Patient refused to complete or attempt activity 9 The patient did not perform the activity before the current illness or injury 88 Not attempted due to Medical conditions or safety concerns Weight Bearing Full Weight Bearing Full Weight Bearing Treatments Sit to stand with SBA. Sit to stand for functional strengthening 2 x 5 reps. Gait training 150 ft x 2 with FWW with SBA. Pt up in chair post treatment with needs met. Assessment Current Status: Good Progress Pt progressing well and making functional gians. No noted safety concerns this visit. PT Short Term Goals Short Term Goals Time Frame: Nov 16, 2018 Transfers (B,C,W/C) (FIM): 3 (met) Gait (FIM): 2 (met) Gait Distance Comment: 50' Gait Level of Assist: 4 Gait Assistive Device: FWW PT Hvac Maintenance Technician Goals Chcf Goals PT Chcf Goals Time Frame: Nov 30, 2018 Transfers (B,C,W/C) (FIM): 4 Sit to Lying (QC): 3 Lying-Sitting on Side/Bed(QC): 3 Sit to Stand (QC): 4 Rollin Roll Left to Right (QC): 3 Chair/Nze-ib-Lecow Xfer(QC): 4 Car Transfer (QC): 3 Gait (FIM): 4 Distance: 150' Walk 10 feet (QC): 4 Walk 10ft-Uneven Surface(QC): 4 Walk 50ft with 2 Turns (QC): 4 Walk 150 ft (QC): 4 Gait Level of Assist: 4 Gait Assistive Device: FWW Stairs (FIM): 2 # of Steps: 4 1 Step (curb) (QC): 4 4 Steps (QC): 4 Stairs Level Of Assist: 4 PT Plan Problem List Problem List: Activity Tolerance, Functional Strength, Safety, Balance, Gait, Transfer, Bed Mobility Treatment/Plan Treatment Plan: Continue Plan of Care Treatment Plan: Bed Mobility, Concurrent Therapy, Education, Functional Activity Desiree, Functional Strength, Group Therapy, Gait, Safety, Therapeutic Exercise, Transfers Treatment Duration: Nov 30, 2018 Frequency: At least 5 of 7 days/Wk (IRF) Estimated Hrs Per Day: 1.5 hours per day Patient and/or Family Agrees t: Yes Safety Risks/Education Patient Education: Safety Issues Teaching Recipient: Patient Teaching Methods: Discussion Response to Teaching: Verbalize Understanding Time/GCodes Time In: 1025 Time Out: 1040 Total Billed Treatment Time: 15 Total Billed Treatment visit GT 15 DELMA UNDERWOOD PT Nov 17, 2018 12:23
[2018-11-17 17:10] VITALS: BP 97/65
[2018-11-17] MEDS: ACETAMINOPHEN 500 MG TAB (TYLENOL) PO PRN (18:38)
[2018-11-17] MEDS: clonazePAM 1 MG (KlonoPIN) TAB PO PRN (18:38)
--- NOTE | 2018-11-17 19:05 | NUR ---
bedside report received from HERI NOE, assume care of pt
--- NOTE | 2018-11-17 20:50 | NUR ---
assessments & interventions completed, see assessments & interventions, pt refused Colace, Senokot, miralax & Dulcolax suppository pt requested Vistaril 25mg for itching
[2018-11-17] MEDS: CALCIUM CARBONATE 500 MG (TUMS) TAB.CHEW PO PRN (20:53)
[2018-11-17] MEDS: MELATONIN 3 MG TABLET PO PRN (20:54)
--- NOTE | 2018-11-17 21:45 | NUR ---
c/o oxyir 5mg for c/o pain level 9/10 on numeric scale
--- NOTE | 2018-11-17 22:30 | NUR ---
resting quietly in bed, pain level 0/10 on flacc scale
--- NOTE | 2018-11-18 05:03 | NUR ---
c/o pain level 10/10 on numeric scale oxyir 5mg po given
--- NOTE | 2018-11-18 05:40 | NUR ---
resting quietly in bed, pain level 0/10 on flacc scale
[2018-11-18 05:57] VITALS: BP 131/82
[2018-11-18] MEDS: KCL 10 MEQ TAB (MICRO K) PO SCH (06:35)
--- NOTE | 2018-11-18 07:13 | NUR ---
bedside report given to LALY NOE
[2018-11-18] MEDS: POLYETHYLENE GLYCOL 17 GM (MIRALAX) PACK PO SCH ×2 (07:48→20:13)
[2018-11-18] MEDS: BISACODYL 10 MG SUPP (DULCOLAX) PR SCH ×2 (07:48→20:13)
[2018-11-18] MEDS: ONDANSETRON 4 MG (ZOFRAN) ORAL DISSOLVE TAB PO PRN (08:18)
[2018-11-18] MEDS: DOCUSATE SODIUM 100 MG (COLACE) CAP PO SCH ×2 (08:21→20:13)
[2018-11-18] MEDS: clonazePAM 1 MG (KlonoPIN) TAB PO PRN ×2 (08:21→18:39)
[2018-11-18] MEDS: SENNA W/DOCUSATE (SENOKOT S) TABLET PO SCH ×2 (08:21→20:13)
[2018-11-18] MEDS: ATORVASTATIN 10 MG (LIPITOR) TABLET PO SCH (09:57)
[2018-11-18] MEDS: CLOPIDOGREL 75 MG (PLAVIX) TABLET PO SCH (09:57)
[2018-11-18] MEDS: LOSARTAN 100 MG (COZAAR) TABLET PO SCH (09:57)
[2018-11-18] MEDS: OXYBUTYNIN (DITROPAN) 5 MG TAB PO SCH ×2 (09:57→20:11)
[2018-11-18] MEDS: GABAPENTIN 600 MG (NEURONTIN) TAB PO SCH ×2 (09:57→20:11)
--- NOTE | 2018-11-18 11:58 | PM&R Progress Note ---
Subjective HPI/CC On Admission Date Seen by Provider: Nov 18, 2018 Time Seen by Provider: 11:45 Chief complaint: Spinal fusion with slow recovery and debility History of present illness: This is a 77-year-old white female patient of Dr. Kassi Ferguson in [facility] who presents to inpatient rehab after undergoing an uncomplicated spinal fusion surgery by Dr. Kim on 11/07/2018 but had just such slow recovery she was required to go to inpatient rehab for intensive and structured therapy program prior to returning home with her . I have reviewed and restarted all of her home medications except for chlorthalidone due to high risk for hyponatremia and postop state. We did r eplace fentanyl patch since it had fallen off and it was taped back to the skin yesterday. She has not had a bowel movement so we will maintain bowel regimen. Overall she is been slow to walk and regain any ADL independence. Check meds and labs. Subjective/Events-last exam Patient doing much better Overall feels better and better Son and his are visiting her today Melatonin helps sleeping at night BM after some constipation Potassium supplement was started at 10 mEq daily and that has been tolerated Hemoglobin 9.6 Monday so will recheck tomorrow Blood pressure stable Episodes of nausea at times just like she has at home No falls Check meds and labs Conferred with RN Reviewed therapy notes Review of Systems General: Fatigue Gastrointestinal: Nausea Musculoskeletal: back pain Objective Exam Vital Signs Vital Signs Date Time Temp Pulse Resp B/P (MAP) Pulse Ox O2 Delivery O2 Flow Rate FiO2 11/18/18 08:10 Room Air 11/18/18 05:57 97.9 77 18 131/82 (98) 96 Capillary Refill : General Appearance: No Apparent Distress, WD/WN, Chronically ill, Obese HEENT: PERRL/EOMI, Normal ENT Inspection, Pharynx Normal, Moist Mucous Membranes Neck: Full Range of Motion, Normal Inspection, Non Tender, Supple Respiratory: Chest Non Tender, Lungs Clear, Normal Breath Sounds, No Accessory Muscle Use, No Respiratory Distress Cardiovascular: Regular Rate, Rhythm, No Edema, No Gallop, No JVD, No Murmur Gastrointestinal: Normal Bowel Sounds, No Organomegaly, No Pulsatile Mass, Non Tender, Soft Back: Decreased Range of Motion, Muscle Spasm, Vertebral Tenderness Extremity: Normal Capillary Refill, Normal Inspection, Normal Range of Motion, Non Tender, No Calf Tenderness, No Pedal Edema Neurologic/Psychiatric: Alert, Oriented x3, No Motor/Sensory Deficits, Normal Mood/Affect, diabetes specialist II-XII Norm as Tested, Motor Weakness (generalized lower extremities) Skin: Normal Color, Warm/Dry Lymphatic: No Adenopathy Results/Procedures Lab Patient resulted labs reviewed. FIM Transfers Therapy Code Descriptions/Definitions Functional [place] Measure: 0=Not Assessed/NA 4=Minimal Assistance 1=Total Assistance 5=Supervision or Setup 2=Maximal Assistance 6=Modified [place] 3=Moderate Assistance 7=Complete [place] Therapy Quality Codes: 6 Independent with activity with or without an assistive device 5 Patient requires set up or clean up by helper. Patient completes activity by themselves 4 Supervision or touching assist (CGA). [place] provide cues , steadying assist 3 The helper provides less than half the effort to complete the activity 2 The helper provides more than half the effort to complete the activity 1 Dependent. The helper does all the effort to complete an activity 7 Patient refused to complete or attempt activity 9 The patient did not perform the activity before the current illness or injury 88 Not attempted due to Medical conditions or safety concerns Transfers (B, C, W/C) (FIM): 5 Scootin Rollin Roll Left to Right (QC): 2 Supine to/from Sit: 6 Sit to/from Stand: 5 Sit to Lying (QC): 5 Sit to Stand (QC): 5 Chair/Cir-aq-Hxvvq Xfer(QC): 3 Bed to/from Chair: 5 Car Transfer (QC): 2 Gait Training Does the Patient Walk?: Yes Gait (FIM): 5 Distance (FIM): 3=150 ft (200x2) Distance: 150' Walk 10 feet (QC): 5 Walk 50 ft with 2 Turns(QC): 5 Walk 150 ft (QC): 5 Gait Level of Assist: 5 Gait Persons Needed: 1 Gait Assistive Device: FWW Wheelchair Training Does the Pt Use a Wheelchair?: Yes Wheelchair (FIM): 1 Type of Wheelchair: Manual Stair Training Stair Training: Handrails/: 2 handrails Stairs (FIM): 5 #of Steps: 4 1 Step (curb) (QC): 5 4 Steps (QC): 5 Stairs: Pattern: Reciprocal Level of Assist: 5 Mental Status/Objective Comprehension: 7 Expression: 7 Social Interaction: 7 Problem Solvin Memory: 6 ADL-Treatment Feedin Eating (QC): 6 Groomin (set up secondary to pt feeling nauseous, pt able to wash face and hands with wet washcloth.) Oral Hygiene (QC): 4 Bathin (SBA for safety, pt able to stand from SC using GB to wash buttocks. Pt educated on long handled sponge, demo'd understanding and was able to wash BLE.) Bathing Location: L Arm, R Arm, L Upper Leg, R Upper Leg, L Lower Leg (i ncluding foot), R Lower Leg (including foot), Chest, Abdomen, Buttocks, Perineal Area Shower/Bathe Self (QC): 4 Upper Extremity Dressin (Pt completed 02/05 donning bra and 2 puller through shirts. Pt clasped bra in front then twisted it to the front, requiring assistance with threading RUE. Pt able to don/doff back brace independently.) Upper Body Dressing (QC): 3 Lower Extremity Dressin (SBA during standing, pt able to use AE to bhavana LE clothing. 8/8 complete with min verbal cues) Lower Body Dressing (QC): 4 On/Off Footwear (QC): 6 Toiletin (2/3 completed. Pt required assistance with hygiene after BM, she stated her helps her with this at home due to her not being able to reach.) Toileting Hygiene (QC): 3 Toilet/Commode Transfer: 4 (CGA sit to stand off of toilet. ) Toilet Transfer (QC): 4 Shower: 5 (SBA, pt ambulated into shower and used GB to sit/stand from SC.) Assessment/Plan Assessment and Plan Assess & Plan/Chief Complaint Assessment: Status post spinal fusion uncomplicated but slow recovery with debility Hypertension Rheumatoid arthritis GERD Irritable bowel syndrome Hyperlipidemia Overactive bladder Antiplatelet agent chronic Emotional problems/difficult coping-improved Hypokalemia on supplement Constipation chronic Plan: Restarted Plavix Monday Pain control with fentanyl patch Check labs prn Bowel regimen to increase when constipated Inpatient rehab therapy protocol Much improved today and will be ok for DC tomorrow Increase pain meds by decreasing hours in between and that seems to be helping takes 4 per day Progressing well Potassium supplement DC Monday (1) S/P spinal fusion Status: Acute (2) Postoperative anemia Status: Acute (3) Rheumatoid arthritis Status: Chronic Qualifiers: Rheumatoid arthritis location: unspecified site Rheumatoid factor presence: unspecified presence Qualified Codes: M06.9 - Rheumatoid arthritis, unspecified (4) Anxiety Status: Chronic (5) Hyperlipemia Status: Chronic Qualifiers: Hyperlipidemia type: mixed hyperlipidemia Qualified Codes: E78.2 - Mixed hyperlipidemia (6) GERD (gastroesophageal reflux disease) Status: Chronic Qualifiers: Esophagitis presence: without esophagitis Qualified Codes: K21.9 - Gastro- esophageal reflux disease without esophagitis (7) Debility Status: Acute (8) Hypertension Status: Chronic Qualifiers: Hypertension type: essential hypertension Qualified Codes: I10 - Essential (primary) hypertension (9) Chronic pain Status: Chronic Qualifiers: Chronic pain type: chronic pain syndrome Qualified Codes: G89.4 - Chronic pain syndrome (10) Overactive bladder Status: Chronic (11) Acute depression Status: Acute KEV FELICIANO DO Nov 18, 2018 11:58
[2018-11-18] MEDS: [UNRECOGNIZED DRUG - REMARK] TP SCH (16:15)
[2018-11-18] MEDS: fentaNYL PATCH 75 MCG (DURAGESIC) TD SCH (16:19)
[2018-11-18 17:20] VITALS: BP 108/75
--- NOTE | 2018-11-18 19:08 | NUR ---
bedside report received from LALY NOE, assume care of pt
[2018-11-18] MEDS: MELATONIN 3 MG TABLET PO PRN (20:11)
--- NOTE | 2018-11-18 20:11 | NUR ---
c/o pain level 10/10 on numeric scale, oxyir 5mg po given, refused Colace, miralax, Senokot & Dulcolax suppository, also requested Vistaril 25mg for itching
[2018-11-18] MEDS: hydrOXYzine (VISTARIL/ATARAX) 25 MG capsule/tablet PO PRN (20:23)
--- NOTE | 2018-11-18 21:05 | NUR ---
resting quietly in bed, pain level 0/10 on flacc scale
[2018-11-19 05:17] VITALS: BP 105/70
[2018-11-19 05:24] LABS: BASOPHILS % (AUTO) 1 % (0-10); EOSINOPHILS # (AUTO) 0.4 10^3/uL (0.0-0.3); EOSINOPHILS % (AUTO) 5 % (0-10); HEMATOCRIT 31 % (35-52); HEMOGLOBIN 9.7 G/DL (11.5-16.0); LYMPHOCYTES # (AUTO) 2.4 X 10^3 (1.0-4.0); LYMPHOCYTES % (AUTO) 35 % (12-44); MEAN CORPUSCULAR HEMOGLOBIN 27 PG (25-34); MEAN CORPUSCULAR HGB CONC 31 G/DL (32-36); MEAN CORPUSCULAR VOLUME 87 FL (80-99); MEAN PLATELET VOLUME 10.2 FL (7.4-10.4); MONOCYTES # (AUTO) 0.7 X 10^3 (0.0-1.0); MONOCYTES % (AUTO) 11 % (0-12); NEUTROPHILS # (AUTO) 3.3 X 10^3 (1.8-7.8); NEUTROPHILS % (AUTO) 48 % (42-75); PLATELET COUNT 433 10^3/uL (130-400); RED CELL DISTRIBUTION WIDTH 14.4 % (10.0-14.5); WHITE BLOOD COUNT 6.8 10^3/uL (4.3-11.0)
[2018-11-19 05:51] LABS: BILIRUBIN,TOTAL 0.2 MG/DL (0.1-1.0); CALCIUM 8.8 MG/DL (8.5-10.1); CREATININE SERUM 0.95 MG/DL (0.60-1.30); POTASSIUM 3.9 MMOL/L (3.6-5.0); TOTAL PROTEIN 5.4 GM/DL (6.4-8.2)
[2018-11-19] MEDS: KCL 10 MEQ TAB (MICRO K) PO SCH (06:39)
--- NOTE | 2018-11-19 06:40 | NUR ---
c/o pain level 8/10 on numeric scale, oxyir 5mg po given
--- NOTE | 2018-11-19 07:08 | NUR ---
bedside report given to LALY NOE
[2018-11-19] MEDS ORDERED: POTA10TA6 PO (07:57)
[2018-11-19] MEDS ORDERED: OXC5T PO (07:57)
[2018-11-19] MEDS ORDERED: CLON1TAB13 PO (07:57)
[2018-11-19] MEDS ORDERED: ONDA4TAB11 PO (07:57)
[2018-11-19] MEDS ORDERED: SENN-20 PO (07:57)
[2018-11-19] MEDS ORDERED: FENT1PAT59 TD (07:57)
--- NOTE | 2018-11-19 08:00 | D/C HH Face to Face Order ---
D/C Face to Face Orders Reconcile Patient Problems Problems Reviewed?: Yes Instructions for Patient Home health Patient Instructions/FollowUp: PCP Dr Kassi Ferguson 1 week Physician to follow Patient: Dr Ferguson Discharge Diet for Home: No Restrictions Patient Problems: Lumbar spine surgery debility Chronic pain Goals for Patient: Return to independent living Patient Data-Allergies,Ht & Wt Patient Allergies: Coded Allergies: Penicillins (Verified Allergy, Unknown, 11/09/18) adhesive tape (Verified Allergy, Unknown, 11/09/18) butorphanol (Verified Allergy, Unknown, 11/09/18) Height (Feet): 5 Height (Inches): 9.00 Weight (Pounds): 250 Weight (Ounces): 9.3 Home Health Need/Face to Face Date of Face to Face: Nov 19, 2018 Clinical Findings: Generalized weakness and fatigue, Pain with ambulation, Unsteady gait I have seen Pt [id number]: Yes Discharged To: Home Diagnosis/Conditions: Lumbar spine surgery debility Chronic pain Patient is Homebound due to: [place] fall risk due to instabilty, Muscle weakness, Pain w/ambulation Homebound Status Due to the above stated illness, injury or surgical procedure (medical condition or diagnosis) and associated clinical findings, the patient is homebound because of his/her inability to leave home except with aid of a supportive device and/or person AND leaving the home requires a considerable and taxing effort or is medically contraindicated. Pt req the following assistanc: Walker Home Health Nursing Orders Home Health Services Order: Teacher Adult Education-Evaluate & Treat, Physical Therapy-Evaluate & Treat Certify Stmt I certify that this patient is under my care and that I, a nurse practitioner or a physician; a optical assistant working with me, had a face to face encounter that - meets the physician face to face encounter requirements with this patient as dated. KEV FELICIANO DO Nov 19, 2018 08:00
--- NOTE | 2018-11-19 08:02 | Discharge Summary ---
Diagnosis/Chief Complaint Date of Admission Nov 09, 2018 at 14:05 Date of Discharge Discharge Date: Nov 19, 2018 Discharge Diagnosis Assessment: Status post spinal fusion uncomplicated but slow recovery with debility Hypertension Rheumatoid arthritis GERD Irritable bowel syndrome Hyperlipidemia Overactive bladder Antiplatelet agent chronic Emotional problems/difficult coping Hypokalemia Constipation Plan: Restarted Plavix Monday Pain control with fentanyl patch Check labs prn Bowel regimen to increase Inpatient rehab therapy protocol Much improved today Increase pain meds by decreasing hours in between and that seems to be helping Progressing well Potassium supplement Discharge Summary Discharge Physical Examination Allergies: Coded Allergies: Penicillins (Verified Allergy, Unknown, 11/09/18) adhesive tape (Verified Allergy, Unknown, 11/09/18) butorphanol (Verified Allergy, Unknown, 11/09/18) Vitals & I&Os Vital Signs Date Time Temp Pulse Resp B/P (MAP) Pulse Ox O2 Delivery O2 Flow Rate FiO2 11/19/18 12:00 11/19/18 08:00 Room Air 11/19/18 05:17 98.2 60 16 93 General Appearance: Alert, Oriented X3, Cooperative Respiratory: Clear to Auscultation, Normal Air Movement Neuro: Normal Gait, Normal Speech, Strength at 5/5 X4 Ext Psych/Mental Status: Mental Status NL, Mood NL Hospital Course Was the Problem List Reviewed?: Yes Hospital course: Pt had an uneventful hospital course for 11 days in inpatient rehab after she was admitted from [facility] due to severe back pain and severe debility with overall poor reserve. She was admitted and participated in all therapies, improved with pain control, and bowels returned back to normal after post op constipation and overall had no considerable decompensation while she was in inpatient rehab. She was able to get to almost prior level of function with the use of a walker. While in inpatient rehab blood pressure remained stable, Labs remained normal and except for chromic anemia of 9.0 hgb and was deemed stable for discharge at her request, along with Fentanyl patch maintained along with Oxycodone up to four a day. She was ordered home health, her PCP Kassi Ferguson will evaluate her in one week. Labs (last 24 hrs) Laboratory Tests 11/10/18 06:17: White Blood Count 7.0, Red Blood Count 3.86L, Hemoglobin 10.3L, Hematocrit 33L, Mean Corpuscular Volume 86, Mean Corpuscular Hemoglobin 27, Mean Corpuscular Hemoglobin Concent 31L, Red Cell Distribution Width 14.8H, Platelet Count 279, Mean Platelet Volume 10.7H, Neutrophils (%) (Auto) 62, Lymphocytes (%) (Auto) 24, Monocytes (%) (Auto) 13H, Eosinophils (%) (Auto) 1, Basophils (%) (Auto) 0, Neutrophils # (Auto) 4.3, Lymphocytes # (Auto) 1.7, Monocytes # (Auto) 0.9, Eosinophils # (Auto) 0.1, Basophils # (Auto) 0.0, Sodium Level 140, Potassium Level 4.0, Chloride Level 106, Carbon Dioxide Level 23, Anion Gap 11, Blood Urea Nitrogen 15, Creatinine 1.02, Estimat Glomerular Filtration Rate 53, BUN/Creatinine Ratio 15, Glucose Level 96, Calcium Level 9.4, Corrected Calcium 10.0, Total Bilirubin 0.7, Aspartate Amino Transf (AST/SGOT) 19, Alanine Aminotransferase (ALT/SGPT) 18, Alkaline Phosphatase 106, Total Protein 5.8L, Albumin 3.3 11/16/18 05:25: White Blood Count 6.3, Red Blood Count 3.63L, Hemoglobin 9.6L, Hematocrit 31L, Mean Corpuscular Volume 85, Mean Corpuscular Hemoglobin 26, Mean Corpuscular Hemoglobin Concent 31L, Red Cell Distribution Width 14.5, Platelet Count 409H, Mean Platelet Volume 10.2, Neutrophils (%) (Auto) 49, Lymphocytes (%) (Auto) 33, Monocytes (%) (Auto) 13H, Eosinophils (%) (Auto) 6, Basophils (%) (Auto) 1, Neutrophils # (Auto) 3.1, Lymphocytes # (Auto) 2.0, Monocytes # (Auto) 0.8, Eosinophils # (Auto) 0.4H, Basophils # (Auto) 0.0, Sodium Level 141, Potassium Level 3.4L, Chloride Level 108H, Carbon Dioxide Level 22, Anion Gap 11, Blood Urea Nitrogen 13, Creatinine 0.83, Estimat Glomerular Filtration Rate > 60, B UN/Creatinine Ratio 16, Glucose Level 99, Calcium Level 8.8, Corrected Calcium 9.6, Total Bilirubin 0.4, Aspartate Amino Transf (AST/SGOT) 9, Alanine Aminotransferase (ALT/SGPT) 6, Alkaline Phosphatase 105, Total Protein 5.5L, Albumin 3.0L 11/19/18 04:25: White Blood Count 6.8, Red Blood Count 3.60L, Hemoglobin 9.7L, Hematocrit 31L, Mean Corpuscular Volume 87, Mean Corpuscular Hemoglobin 27, Mean Corpuscular Hemoglobin Concent 31L, Red Cell Distribution Width 14.4, Platelet Count 433H, Mean Platelet Volume 10.2, Neutrophils (%) (Auto) 48, Lymphocytes (%) (Auto) 35, Monocytes (%) (Auto) 11, Eosinophils (%) (Auto) 5, Basophils (%) (Auto) 1, Neutrophils # (Auto) 3.3, Lymphocytes # (Auto) 2.4, Monocytes # (Auto) 0.7, Eosinophils # (Auto) 0.4H, Basophils # (Auto) 0.0, Sodium Level 143, Potassium Level 3.9, Chloride Level 110H, Carbon Dioxide Level 23, Anion Gap 10, Blood Urea Nitrogen 16, Creatinine 0.95, Estimat Glomerular Filtration Rate 57, BUN/Creatinine Ratio 17, Glucose Level 118H, Calcium Level 8.8, Corrected Calcium 9.6, Total Bilirubin 0.2, Aspartate Amino Transf (AST/SGOT) 10, Alanine Aminotransferase (ALT/SGPT) 9, Alkaline Phosphatase 107, Total Protein 5.4L, Albumin 3.0L Pending Labs Laboratory Tests 11/10/18 06:17: White Blood Count 7.0, Red Blood Count 3.86, Hemoglobin 10.3, Hematocrit 33, Mean Corpuscular Volume 86, Mean Corpuscular Hemoglobin 27, Mean Corpuscular Hemoglobin Concent 31, Red Cell Distribution Width 14.8, Platelet Count 279, Mean Platelet Volume 10.7, Neutrophils (%) (Auto) 62, Lymphocytes (%) (Auto) 24, Monocytes (%) (Auto) 13, Eosinophils (%) (Auto) 1, Basophils (%) (Auto) 0, Neutrophils # (Auto) 4.3, Lymphocytes # (Auto) 1.7, Monocytes # (Auto) 0.9, Eosinophils # (Auto) 0.1, Basophils # (Auto) 0.0, Sodium Level 140, Potassium Level 4.0, Chloride Level 106, Carbon Dioxide Level 23, Anion Gap 11, Blood Urea Nitrogen 15, Creatinine 1.02, Estimat Glomerular Filtration Rate 53, BUN/Creatinine Ratio 15, Glucose Level 96, Calcium Level 9.4, Corrected Calcium 10.0, Total Bilirubin 0.7, Aspartate Amino Transf (AST/SGOT) 19, Alanine Aminotransferase (ALT/SGPT) 18, Alkaline Phosphatase 106, Total Protein 5.8, Albumin 3.3 11/16/18 05:25: White Blood Count 6.3, Red Blood Count 3.63, Hemoglobin 9.6, Hematocrit 31, Mean Corpuscular Volume 85, Mean Corpuscular Hemoglobin 26, Mean Corpuscular Hemoglobin Concent 31, Red Cell Distribution Width 14.5, Platelet Count 409, Mean Platelet Volume 10.2, Neutrophils (%) (Auto) 49, Lymphocytes (%) (Auto) 33, Monocytes (%) (Auto) 13, Eosinophils (%) (Auto) 6, Basophils (%) (Auto) 1, Neutrophils # (Auto) 3.1, Lymphocytes # (Auto) 2.0, Monocytes # (Auto) 0.8, Eosinophils # (Auto) 0.4, Basophils # (Auto) 0.0, Sodium Level 141, Potassium Level 3.4, Chloride Level 108, Carbon Dioxide Level 22, Anion Gap 11, Blood Urea Nitrogen 13, Creatinine 0.83, Estimat Glomerular Filtration Rate > 60, BUN/Creatinine Ratio 16, Glucose Level 99, Calcium Level 8.8, Corrected Calcium 9.6, Total Bilirubin 0.4, Aspartate Amino Transf (AST/SGOT) 9, Alanine Aminotransferase (ALT/SGPT) 6, Alkaline Phosphatase 105, Total Protein 5.5, Albumin 3.0 11/19/18 04:25: White Blood Count 6.8, Red Blood Count 3.60, Hemoglobin 9.7, Hematocrit 31, Mean Corpuscular Volume 87, Mean Corpuscular Hemoglobin 27, Mean Corpuscular Hemoglobin Concent 31, Red Cell Distribution Width 14.4, Platelet Count 433, Mean Platelet Volume 10.2, Neutrophils (%) (Auto) 48, Lymphocytes (%) (Auto) 35, Monocytes (%) (Auto) 11, Eosinophils (%) (Auto) 5, Basophils (%) (Auto) 1, Neutrophils # (Auto) 3.3, Lymphocytes # (Auto) 2.4, Monocytes # (Auto) 0.7, Eosinophils # (Auto) 0.4, Basophils # (Auto) 0.0, Sodium Level 143, Potassium Level 3.9, Chloride Level 110, Carbon Dioxide Level 23, Anion Gap 10, Blood Urea Nitrogen 16, Creatinine 0.95, Estimat Glomerular Filtration Rate 57, BUN/Creatinine Ratio 17, Glucose Level 118, Calcium Level 8.8, Corrected Calcium 9.6, Total Bilirubin 0.2, Aspartate Amino Transf (AST/SGOT) 10, Alanine Aminotransferase (ALT/SGPT) 9, Alkaline Phosphatase 107, Total Protein 5.4, Albumin 3.0 Discharge Home Medications: Active Scripts Active Senna-Time S Tablet (Sennosides/Docusate Sodium) 1 Each Tablet 2 Ea PO BID Klor-Con 10 (Potassium Chloride) 10 Meq Tablet.er 10 Meq PO DAILY@0700 Oxyir Tablet (Oxycodone HCl) 5 Mg Tab 5 Mg PO Q6HR PRN Ondansetron Odt (Ondansetron) 4 Mg Tab.rapdis 4 Mg PO QID PRN Clonazepam 1 Mg Tablet 1 Mg PO TID Duragesic Patch 75 MCG (Fentanyl) 1 Each Patch.td72 75 Mcg TD Q72H Reported Clopidogrel (Clopidogrel Bisulfate) 75 Mg Tablet 75 Mg PO DAILY Gabapentin 600 Mg Tablet 600 Mg PO BID Oxybutynin Chloride ER (Oxybutynin Chloride) 5 Mg Tab.er.24 5 Mg PO DAILY Atorvastatin Calcium 10 Mg Tablet 10 Mg PO DAILY Losartan Potassium 100 Mg Tablet 100 Mg PO DAILY Hydroxyzine Pamoate 25 Mg Capsule 25-50 Mg PO Q6H PRN Omeprazole 20 Mg Capsule.dr 20 Mg PO DAILY PRN Gabapentin 600 Mg Tablet 600 Mg PO 1200 PRN Instructions to patient/family Please see electronic discharge instructions given to patient. Diagnosis/Problems Diagnosis/Problems (1) S/P spinal fusion Status: Acute (2) Postoperative anemia Status: Acute (3) Rheumatoid arthritis Status: Chronic Qualifiers: Qualified Codes: M06.9 - Rheumatoid arthritis, unspecified (4) Anxiety Status: Chronic (5) Hyperlipemia Status: Chronic Qualifiers: Qualified Codes: E78.2 - Mixed hyperlipidemia (6) GERD (gastroesophageal reflux disease) Status: Chronic Qualifiers: Qualified Codes: K21.9 - Gastro-esophageal reflux disease without esophagitis (7) Debility Status: Acute (8) Hypertension Status: Chronic Qualifiers: Qualified Codes: I10 - Essential (primary) hypertension (9) Chronic pain Status: Chronic Qualifiers: Qualified Codes: G89.4 - Chronic pain syndrome (10) Overactive bladder Status: Chronic (11) Acute depression Status: Acute Clinical Quality Measures DVT/VTE Risk/Contraindication: Risk Factor Score Per Nursin RFS Level Per Nursing on Admit: 4+=Very High KEV FELICIANO DO Nov 19, 2018 08:02
[2018-11-19] MEDS: DOCUSATE SODIUM 100 MG (COLACE) CAP PO SCH (08:12)
[2018-11-19] MEDS: SENNA W/DOCUSATE (SENOKOT S) TABLET PO SCH (08:13)
[2018-11-19] MEDS: POLYETHYLENE GLYCOL 17 GM (MIRALAX) PACK PO SCH (08:13)
[2018-11-19] MEDS: BISACODYL 10 MG SUPP (DULCOLAX) PR SCH (08:13)
--- NOTE | 2018-11-19 08:27 | Physical Therapy Daily Note ---
PT Daily Note-Current Subjective Pt. agrees to Rx. Anxious to go home and feels better today than she has thus far. Pain Location: No Pain Reported Mental Status Patient Orientation: Normal For Age Attachments: Other-See Comments (back brace) Transfers Therapy Code Descriptions/Definitions Functional [place] Measure: 0=Not Assessed/NA 4=Minimal Assistance 1=Total Assistance 5=Supervision or Setup 2=Maximal Assistance 6=Modified [place] 3=Moderate Assistance 7=Complete [place] Therapy Quality Codes: 6 Independent with activity with or without an assistive device 5 Patient requires set up or clean up by helper. Patient completes activity by themselves 4 Supervision or touching assist (CGA). [place] provide cues , steadying assist 3 The helper provides less than half the effort to complete the activity 2 The helper provides more than half the effort to complete the activity 1 Dependent. The helper does all the effort to complete an activity 7 Patient refused to complete or attempt activity 9 The patient did not perform the activity before the current illness or injury 88 Not attempted due to Medical conditions or safety concerns Transfers (B, C, W/C) (FIM): 6 Scootin Rollin Roll Left to Right (QC): 6 Supine to/from Sit: 6 Sit to/from Stand: 6 Sit to Lying (QC): 6 Sit to Stand (QC): 6 Chair/Nsj-bm-Vjmzc Xfer(QC): 6 Bed to/from Chair: 6 Car Transfer (QC): 6 Weight Bearing Full Weight Bearing Full Weight Bearing Gait Training Gait (FIM): 6 Distance (FIM): 3=150 ft (200x2) Walk 10 feet (QC): 6 Walk 50 ft with 2 Turns(QC): 6 Walk 150 ft (QC): 6 Walking 10ft/uneven surface-QC: 6 Gait Level of Assist: 6 Gait Persons Needed: 0 Gait Assistive Device: FWW flexed posture, moderate wt bearing on UEs on FWW Stair Training Stair Training: Handrails/: 2 handrails Stairs (FIM): 5 #of Steps: 4 1 Step (curb) (QC): 5 4 Steps (QC): 5 Stairs: Pattern: Reciprocal Level of Assist: 5 needs only assist to bring device to top and bottom of steps Balance Special Test Comments unsafe to trial bending over to retrieve item Treatments pt. donned brace indep, donned pants indep Assessment Current Status: Good Progress meets goals PT Short Term Goals Short Term Goals Time Frame: Nov 16, 2018 Transfers (B,C,W/C) (FIM): 3 (met) Gait (FIM): 2 (met) Gait Distance Comment: 50' Gait Level of Assist: 4 Gait Assistive Device: FWW PT Halfway Goals Cinder Snapper Goals PT Cinder Snapper Goals Time Frame: Nov 30, 2018 Transfers (B,C,W/C) (FIM): 4 Sit to Lying (QC): 3 Lying-Sitting on Side/Bed(QC): 3 Sit to Stand (QC): 4 Rollin Roll Left to Right (QC): 3 Chair/Lnd-aw-Hmqzs Xfer(QC): 4 Car Transfer (QC): 3 Gait (FIM): 4 Distance: 150' Walk 10 feet (QC): 4 Walk 10ft-Uneven Surface(QC): 4 Walk 50ft with 2 Turns (QC): 4 Walk 150 ft (QC): 4 Gait Level of Assist: 4 Gait Assistive Device: FWW Stairs (FIM): 2 # of Steps: 4 1 Step (curb) (QC): 4 4 Steps (QC): 4 Stairs Level Of Assist: 4 PT Plan Treatment/Plan Treatment Plan: Continue Plan of Care Treatment Plan: Bed Mobility, Concurrent Therapy, Education, Functional Activity Desiree, Functional Strength, Group Therapy, Gait, Safety, Therapeutic Exercise, Transfers Treatment Duration: Nov 30, 2018 Frequency: At least 5 of 7 days/Wk (IRF) Estimated Hrs Per Day: 1.5 hours per day Patient and/or Family Agrees t: Yes Safety Risks/Education Patient Education: Gait Training, Transfer Techniques, Steps, Correct Positioning, Disease Process, Safety Issues Teaching Recipient: Patient Teaching Methods: Demonstration, Discussion Response to Teaching: Verbalize Understanding, Return Demonstration Time/GCodes Time In: 805 Time Out: 825 Total Billed Treatment Time: 20 Total Billed Treatment 1,FA20m SOTERO SALVADOR PTA Nov 19, 2018 08:27
[2018-11-19] MEDS: CLOPIDOGREL 75 MG (PLAVIX) TABLET PO SCH (09:23)
[2018-11-19] MEDS: OXYBUTYNIN (DITROPAN) 5 MG TAB PO SCH (09:23)
[2018-11-19] MEDS: ATORVASTATIN 10 MG (LIPITOR) TABLET PO SCH (09:23)
[2018-11-19] MEDS: GABAPENTIN 600 MG (NEURONTIN) TAB PO SCH (09:23)
[2018-11-19] MEDS: hydrOXYzine (VISTARIL/ATARAX) 25 MG capsule/tablet PO PRN (09:23)
[2018-11-19] MEDS: LOSARTAN 100 MG (COZAAR) TABLET PO SCH (09:23)
--- NOTE | 2018-11-19 09:44 | NUR ---
LOGISTICS SUPERVISOR received notification from RN that Dr. Brito intends to discharge patient today. LOGISTICS SUPERVISOR met with patient to review any last minute concerns regarding discharge plans. She and spouse are eager to discharge and express no concerns. Upon discussing recommendation for [facility], patient reports that she previously utilized [facility] and would like this provider again. LOGISTICS SUPERVISOR will send referral. LOGISTICS SUPERVISOR reviewed IMM and Patient Choice Letter, patient provided signature on both documents. No additional concerns or questions noted. Please see discharge summary for further information. Addendum: 11/19/18 at 1018 by BATOOL SORIANO Esequiel Souza [facility] will accept patient for PT/OT services.
--- NOTE | 2018-11-19 10:59 | Occupational Ther Daily Note ---
OT Current Status-Daily Note Subjective Pt laying in bed at start of session, agreed to OT tx focusing on ADLs, stating she is "ready to go home". Pt did not report any pain this session. Mental Status/Objective Patient Orientation: Normal For Age Therapy Code Descriptions/Definitions Functional [place] Measure: 0=Not Assessed/NA 4=Minimal Assistance 1=Total Assistance 5=Supervision or Setup 2=Maximal Assistance 6=Modified [place] 3=Moderate Assistance 7=Complete [place] ADL-Treatment Therapy Code Descriptions/Definitions Functional [place] Measure: 0=Not Assessed/NA 4=Minimal Assistance 1=Total Assistance 5=Supervision or Setup 2=Maximal Assistance 6=Modified [place] 3=Moderate Assistance 7=Complete [place] Therapy Quality Codes: 6 Independent with activity with or without an assistive device 5 Patient requires set up or clean up by helper. Patient completes activity by themselves 4 Supervision or touching assist (CGA). [place] provide cues , steadying assist 3 The helper provides less than half the effort to complete the activity 2 The helper provides more than half the effort to complete the activity 1 Dependent. The helper does all the effort to complete an activity 7 Patient refused to complete or attempt activity 9 The patient did not perform the activity before the current illness or injury 88 Not attempted due to Medical conditions or safety concerns Eating (FIM): 7 Eating (QC): 6 Grooming (FIM): 6 (mod I standing at sink with FWW) Oral Hygiene (QC): 6 Bathing (FIM): 5 (set up. Pt able to wash LE using long handled sponge. ) Bathing Location: L Arm, R Arm, L Upper Leg, R Upper Leg, L Lower Leg (including foot), R Lower Leg (including foot), Chest, Abdomen, Buttocks, Per ineal Area Shower/Bathe Self (QC): 5 Upper Body (FIM): 5 (Set up) Upper Body Dressing (QC): 5 Lower Body Dressing (FIM): 5 (Pt required min verbal cues for use of crop specialist to don pant/underpants. Pt able to use sock aid without cues) Lower Body Dressing (QC): 4 On/Off Footwear (QC): 6 (pt able to don socks with sock aid) Toileting (FIM): 6 (mod I using FWW) Toileting Hygiene (QC): 6 Transfers (B, C, W/C) (FIM): 6 (mod I using FWW) Toilet/Commode Transfer (FIM): 6 (Mod I using GB/FWW) Toilet Transfer (QC): 6 Shower Transfer(FIM): 6 (Mod I using FWW and GB) Other Treatment Pt completed ADL session in room. Post OT session, pt laying in bed with needs met and call light in reach Education OT Patient Education: Correct positioning, Energy conservation, Modified ADL techniques, Progress toward Goal/Update tx plan, Purpose of tx/functional activities, Transfer techniques, Use of adapted equipment Teaching Recipient: Patient Teaching Methods: Demonstration, Discussion Response to Teaching: Verbalize Understanding, Return Demonstration OT Short Term Goals Short Term Goals Time Frame: Nov 23, 2018 Grooming(FIM): 5 (met) Bathing(FIM): 5 (met) Bathing Location: L Arm, R Arm, L Upper Leg, R Upper Leg, L Lower Leg (including foot), R Lower Leg (including foot), Chest, Abdomen, Buttocks, Perineal Area Upper Body Dressing(FIM): 5 (met) Lower Body Dressing(FIM): 5 (met) Toileting(FIM): 5 (met) Transfers (B,C,W/C) (FIM): 3 (met) Toilet/Commode Transfer(FIM): 5 (met) Shower Transfer(FIM): 5 (met) 1=Demonstrate adherence to instructed precautions during ADL tasks. 2=Patient will verbalize/demonstrate understanding of assistive devices/modifications for ADL. 3=Patient will improve strength/tolerance for activity to enable patient to perform ADL's. OT Inspector Structural Bonding Goals Inspector Structural Bonding Goals Time Frame: Dec 07, 2018 Eating (FIM): 7 (met) Eating (QC): 6 (met) Groomin (met) Oral Hygiene (QC): 6 (met) Bathing(FIM): 6 (not met) Bathing Location: L Arm, R Arm, L Upper Leg, R Upper Leg, L Lower Leg (includ ing foot), R Lower Leg (including foot), Chest, Abdomen, Buttocks, Perineal Area Shower/Bathe Self (QC): 6 (not met) Upper Body Dressing(FIM): 6 (not met) Upper Body Dressing (QC): 6 (not met) Lower Body Dressing(FIM): 6 (not met) Lower Body Dressing (QC): 6 (not met) On/Off Footwear (QC): 6 (met) Toileting(FIM): 6 (met) Toileting Hygiene (QC): 6 (met) Transfers (B,C,W/C) (FIM): 6 (met) Toilet/Commode Transfer(FIM): 6 (met) Toilet/Commode Transfer (QC): 6 (met) Shower Transfer(FIM): 6 (met) 1=Demonstrate adherence to instructed precautions during ADL tasks. 2=Patient will verbalize/demonstrate understanding of assistive ela kaur/modifications for ADL. 3=Patient will improve strength/tolerance for activity to enable patient to perform ADL's. OT Education/Plan Problem List/Assessment Assessment: Decreased Activ Tolerance, Decreased UE Strength, Impaired Self- Care Skills, Restricted Funct UE ROM Discharge Recommendations Plan/Recommendations: Continue POC Therapy D/C Recommendations: Home w/ Family Support Equpiment Recommendations-D/C: Hip Kit Treatment Plan/Plan of Care Treatment,Training & Education: Yes Patient would benefit from OT for education, treatment and training to promote independence in ADL's, mobility, safety and/or upper extremity function for ADL's. Plan of Care: ADL Retraining, Caregiver Training, Functional Mobility, Group Exercise/Act as Ind, UE Funct Exercise/Act Treatment Duration: Nov 12, 2018 Frequency: At least 5 of 7 days/Wk (IRF) Estimated Hrs Per Day: 1 hour per day (60-90 min) Agreement: Yes Rehab Potential: Fair Time/GCodes Start Time: 10:00 Stop Time: 10:45 Total Time Billed (hr/min): 45 Billed Treatment Time 1, ADL 3 X45 min DASH GAMBOA OT Nov 19, 2018 10:59
[2018-11-19] MEDS: clonazePAM 1 MG (KlonoPIN) TAB PO PRN (11:27)
--- NOTE | 2018-11-20 11:40 | Therapy Team Discharge Summary ---
Therapy Discharge Summary Discharge Recommendations Date of Discharge Nov 19, 2018 at 12:00 Therapy D/C Recommendations: Home w/ Family Support, Occupational Therapy Home Care Occupational Therapy OT focused on ADLs, UE strengthening/endurance, education on AE, functional mobility, fine motor strengthening, and education on donning/doffing back brace. Barriers to pt's progress are pts pain level and decreased ROM in pt's RUE. Pt met goals of independent eating, Mod I with grooming/toileting/transfers/shower transfer/toilet transfer. At d/c pt required set up assistance with bathing and UE dressing, and SBA for min verbal cues for LE dressing with AE. OT recommends pt d/c home with family support and home health OT. AE recommended: panama hat smearer, sock aid, and dressing stick. Decreased Activ Tolerance, Decreased UE Strength, Impaired Self-Care Skills, Restricted Funct UE ROM PT Long-Term Goals Long-Term Goals PT Long-Term Goals Time Frame: Nov 30, 2018 Transfers (B,C,W/C) (FIM): 4 Roll Left to Right (QC): 3 Sit to Lying (QC): 3 Lying-Sitting on Side/Bed(QC): 3 Sit to Stand (QC): 4 Chair/Zii-ib-Cmsbv Xfer(QC): 4 Car Transfer (QC): 3 Gait (FIM): 4 Distance: 150' Walk 10 feet (QC): 4 Walk 10ft-Uneven Surface(QC): 4 Walk 50ft with 2 Turns (QC): 4 Walk 150 ft (QC): 4 Gait Level of Assist: 4 Gait Assistive Device: FWW Stairs (FIM): 2 # of Steps: 4 1 Step (curb) (QC): 4 4 Steps (QC): 4 Stairs Level Of Assist: 4 OT Long-Term Goals Textile Broker Goals Time Frame: Dec 07, 2018 Eating (FIM): 7 (met) Eating (QC): 6 (met) Oral Hygiene (QC): 6 (met) Grooming(FIM): 6 (met) Bathing(FIM): 6 (not met) Bathing Location: L Arm, R Arm, L Upper Leg, R Upper Leg, L Lower Leg (including foot), R Lower Leg (including foot), Chest, Abdomen, Buttocks, Perineal Area Shower/Bathe Self (QC): 6 (not met) Upper Body Dressing(FIM): 6 (not met) Upper Body Dressing (QC): 6 (not met) Lower Body Dressing(FIM): 6 (not met) Lower Body Dressing (QC): 6 (not met) On/Off Footwear (QC): 6 (met) Toileting(FIM): 6 (met) Toileting Hygiene (QC): 6 (met) Transfers (B,C,W/C) (FIM): 6 (met) Toilet/Commode Transfer(FIM): 6 (met) Toilet/Commode Transfer (QC): 6 (met) Shower Transfer(FIM): 6 (met) 1=Demonstrate adherence to instructed precautions during ADL tasks. 2=Patient will verbalize/demonstrate understanding of assistive devices/ modifications for ADL. 3=Patient will improve strength/tolerance for activity to enable patient to perform ADL's. DASH GAMBOA OT Nov 20, 2018 11:40
== END 2018-11-19 12:00 | disposition home health service (06) | DRG 561 ==
PROVIDERS: ADMIT Internal Medicine; ATTEND Internal Medicine
DX: Z47.89 Encounter for other orthopedic aftercare (principal); I10 Essential (primary) hypertension; G62.9 Polyneuropathy, unspecified; N32.81 Overactive bladder; K21.9 Gastro-esophageal reflux disease without esophagitis; K58.1 Irritable bowel syndrome with constipation; M19.90 Unspecified osteoarthritis, unspecified site; M79.7 Fibromyalgia; M06.9 Rheumatoid arthritis, unspecified; F41.9 Anxiety disorder, unspecified; F32.9 Major depressive disorder, single episode, unspecified; E78.5 Hyperlipidemia, unspecified; R45.89 Other symptoms and signs involving emotional state; G89.18 Other acute postprocedural pain; Z79.02 Long term (current) use of antithrombotics/antiplatelets; R00.0 Tachycardia, unspecified; E87.6 Hypokalemia; D64.9 Anemia, unspecified
CPT/HCPCS: 36415; 80053; 85025; 93005; 94664